=== PATIENT | male | born 1950 | race Caucasian/White ===

== ENCOUNTER 2017-04-11 18:06 | Inpatient (IN) ==
[2017-04-11] MEDS ORDERED: Ipratropium/Albuterol Neb 3 ML IH ONE (18:16)
[2017-04-11] MEDS ORDERED: methylPREDNISolone 125 MG/2 ML VIAL IVP ONE (18:16)
[2017-04-11 18:49] LABS: Basophils # 0.1 K/mcL (0.0-0.2); Eosinophils # 0.8 K/mcL (0.0-0.6); Eosinophils % 10.8 %; Hemoglobin 11.7 g/dL (12.9-16.9); Immature Granulocytes % 0.4 % (0-4); Immature Platelets 1.5 % (1.1-6.1); Lymphocytes # 1.8 K/mcL (0.6-4.6); Lymphocytes % 25.1 %; Mean Corpuscular HGB Conc 32.5 g/dL (31.6-35.5); Mean Corpuscular Hemoglobin 29.5 pg (28.0-33.3); Mean Corpuscular Volume 90.7 fL (83.0-100.0); Mean Platelet Volume 9.4 fL (9.4-12.4); Monocytes # 0.8 K/mcL (0.0-1.3); Monocytes % 10.7 %; Neutrophils # 3.7 K/mcL (1.6-8.9); Platelet Count 303 K/mcL (140-400); Red Blood Count 3.97 M/mcL (4.19-5.50); Red Cell Distribution Width 12.6 % (11.5-14.5)
[2017-04-11 18:57] LABS: BUN/Creatinine Ratio 20 (6-26); Blood Urea Nitrogen 17 mg/dL (8-26); Calcium 9.3 mg/dL (8.6-10.8); Carbon Dioxide 27 mEq/L (19-29); Chloride 104 mEq/L (98-109); Glucose 78 mg/dL (70-99); Osmolality,Calculated 288 (280-300); Potassium 4.2 mEq/L (3.5-4.5); Sodium 139 mEq/L (136-145); eGFR For African Americans > 60 (> 60); eGFR For Non-African Americans > 60 (> 60)
[2017-04-11 19:09] LABS: Platelet Estimate Normal (Normal)
--- NOTE | 2017-04-11 19:33 | Emergency Department Note ---
Disposition Clinical Impression: Shortness of breath, Wheezing, Tremor Disposition: Admitted As Inpatient [facility] Provider[facility] - Forms: ED Satisfaction Letter Time of Disposition: 20:36 SOB HPI - General Chief Complaint: ED Shortness of Breath/Dyspnea Stated Complaint: OSCAR Time Seen by Provider: 04/11/17 18:10 Source: patient Limitations: no limitations Nursing Notes Reviewed: Yes Vital Signs Reviewed: Yes - History of Present Illness 66-year-old male presents emergency room for shortness of breath. Onset 3 days ago. Mr. cough but no sputum production. No documented fevers. Patient has a history of Agent [place] exposure from [place]. He is a long history of breathing problems. He wears oxygen occasionally at home but specifically more at night. He does have home nebulizer treatments. He did not use any today. He denies any chest pain. No lower leg pain or swelling. He states he fell shortness of breath at rest and with movement. He has not history of a anoxic brain injury in the past which is left him with some tremor disorder. - Related Data Home Medications Medication Instructions Recorded Confirmed Albuterol Neb [Proventil Neb] 2.5 mg IH QID 01/17/16 01/28/16 Aspirin 81 mg PO DAILY 01/17/16 01/28/16 Atenolol 100 mg PO DAILY 01/17/16 01/28/16 Bisacodyl [Dulcolax] 10 mg RC DAILY PRN 01/17/16 01/28/16 Chlorhexidine Gluconate [Peridex] 15 ml ORAL RINSE BID 01/17/16 01/28/16 Diclofenac Sodium [Voltaren] 50 mg PO Q8HR 01/17/16 01/28/16 Docusate [Colace] 100 mg PO BID PRN 01/17/16 01/28/16 Furosemide [Lasix] 20 mg PO DAILY 01/17/16 01/28/16 GuaiFENesin/Dextromethorphan [Kro 5 ml PO Q6H PRN 01/17/16 01/28/16 Child Mucus Rlf Cough Liq] Guaifenesin 400 mg PO TID 01/17/16 01/28/16 Haloperidol [Haldol] 5 mg PO Q6H PRN 01/17/16 01/28/16 Ipratropium Neb [Atrovent Neb] 0.5 mg IH QID 01/17/16 01/28/16 Ipratropium/Albuterol Sulfate 1 puff IH QID 01/17/16 01/28/16 [Combivent Respimat Inhal [place]] Ketoconazole Shampoo [Nizoral 1 appl TP AD PRN 01/17/16 01/28/16 Shampoo] Lactose-Reduced Food [Boost Plus] 237 ml PO BID 01/17/16 01/28/16 LevETIRAcetam [Keppra] 500 mg PO Q8H 01/17/16 01/28/16 Nystatin Cream [Mycostatin Cream] 1 appl TP BID 01/17/16 01/28/16 Polyethylene Glycol 3350 [MiraLAX] 17 gm PO DAILY PRN 01/17/16 01/28/16 Potassium Chloride [K-Tab ER] 10 meq PO DAILY 01/17/16 01/28/16 Primidone [Mysoline] 100 mg PO BID 01/17/16 01/28/16 Sertraline [Zoloft] 200 mg PO DAILY 01/17/16 01/28/16 Simvastatin [Zocor] 20 mg PO QPM 01/17/16 01/28/16 TraZODone 25 mg PO Q6H PRN 01/17/16 01/28/16 amLODIPine [Norvasc] 5 mg PO BID 01/17/16 01/28/16 hydrOXYzine HCl [Hydroxyzine HCl] 25 mg PO QID PRN 01/17/16 01/28/16 hydroCHLOROthiazide 12.5 mg PO DAILY 01/17/16 01/28/16 [Hydrochlorothiazide] Previous Rx's Medication Instructions Recorded Baclofen [Lioresal] 10 mg PO TID #90 tablet 01/20/16 Omeprazole [PriLOSEC] 40 mg PO DAILY@0630 #30 capsule 01/20/16 Oxycodone HCl 10 mg PO Q6H PRN #40 tab 01/20/16 Valproic Acid 250 mg PO QID #120 capsule 01/20/16 clonazePAM [Klonopin] 2 mg PO BID #60 tablet 01/20/16 predniSONE [PredniSONE] 10 mg PO DAILY #105 tablet 01/20/16 Allergies Allergy/AdvReac Type Severity Reaction Status Date / Time moxifloxacin Allergy Swelling Verified 01/28/16 17:07 of Lip/Tongue/Throat Review of Systems: Gen.: No fevers or chills or new weakness Eyes: Denies double vision or any vision changes Ears: Denies any otalgia Pharynx: Denies sore throat CV: Denies chest pain. Denies palpitations Respiratory: Positive for shortness of breath and cough . GI: Denies any nausea, vomiting, diarrhea, constipation. Denies abdominal pain Neuro: Denies any headache. No problems with ambulation. No numbness. Skin: Denies any rashes or abrasions Psych: Denies any depression or suicidal or homicidal ideation Musculoskeletal: Denies any arthralgias or myalgias Review of Systems: As Per [facility] Past Medical History - Past Medical History Medical history: Reports: CHF, COPD, coronary artery disease, GERD, hypertension , pulmonary embolus, seizures, other Surgical history: Reports: appendectomy, tracheostomy, other Psychiatric history: Reports: anxiety, bipolar - Social History Smoking Status: Former smoker Smokeless Tobacco Status: No Alcohol use: Reports: none Drug use: Reports: none Physical Exam - General Limitations: no limitations, language barrier (Patient has some speech impediment problem secondary to his tremor disorder.) General appearance: alert, in no apparent distress - Head Head exam: atraumatic, normocephalic, other - Eye Eye exam: Present: normal appearance - ENT ENT exam: normal exam - Neck Neck exam: Present: normal inspection, full ROM - Chest Chest inspection: Present: normal inspection, symmetric chest wall rise - Respiratory Respiratory exam: Present: wheezes (Patient has bilateral wheezing heard throughout. Good air exchange. No rhonchi are heard.) - Cardiovascular Cardiovascular exam: Present: regular rate, normal rhythm, normal heart sounds - Abdominal Exam Abdominal exam: Present: soft, Non-Tender, normal bowel sounds - Extremities Exam Extremities exam: Present: normal inspection - Expanded Lower Extremity Exam Hip/Pelvis exam: Present: normal inspection - Back Exam Back exam: Present: normal inspection - Neurological Exam Neurological exam: Present: alert, oriented X3 - Psychiatric Psychiatric exam: Present: normal affect, normal mood - Skin Skin exam: Present: warm, dry, intact Course Vital Signs Temperature 98.7 F 04/11/17 18:07 Pulse Rate 74 04/11/17 18:07 Respiratory Rate 20 04/11/17 18:07 Blood Pressure 153/68 04/11/17 18:07 O2 Sat by Pulse Oximetry 98 04/11/17 18:07 Temperature 98.7 F 04/11/17 18:07 Pulse Rate 66 04/11/17 20:31 Respiratory Rate 18 04/11/17 20:31 Blood Pressure 185/92 04/11/17 20:31 O2 Sat by Pulse Oximetry 96 04/11/17 20:31 Oxygen Delivery Oxygen Delivery Nasal Cannula Shortness of Breath/Dyspnea - [facility] Narrative Medical decision making narrative: Patient received DuoNeb treatments as well as steroids in the ER. His chest x- ray was concerning for infrahilar right spiculated mass versus infiltrate. Patient has Agent [place] exposure from the [place]. He does wear home oxygen as previously mentioned. He does not wear this all the time. His labs are essentially unremarkable. His chest x-ray again noted above and therefore I did a CT of the chest. Awaiting the official report from radiology but there is evidence of a spiculated mass present in the right lung versus infiltrate. I spoke with the hospitalist. Patient will need to be admitted. He is having no chest pain. No lower extremity pain or swelling that is new. Patient is okay with being admitted. - Medical Records Medical records reviewed: Yes I reviewed the patient's medical records. - Lab Data Lab results reviewed: Yes I reviewed the patient's lab results. Result diagrams: 04/11/17 18:34 04/11/17 18:34 Lab Results 04/11/17 04/11/17 04/11/17 Range/Units 18:34 18:34 18:34 WBC 7.2 (4.3-11.1) K/mcL RBC 3.97 L (4.19-5.50) M/mcL Hgb 11.7 L (12.9-16.9) g/dL Hct 36.0 L (37.5-50.1) % MCV 90.7 (83.0-100.0) fL MCH 29.5 (28.0-33.3) pg MCHC 32.5 (31.6-35.5) g/dL RDW 12.6 (11.5-14.5) % Plt Count 303 (140-400) K/mcL MPV 9.4 (9.4-12.4) fL Immature Gran % 0.4 (0-4) % Seg Neutrophils % 52.0 % Lymphocytes % 25.1 % Monocytes % 10.7 % Eosinophils % 10.8 % Basophils % 1.0 % Neutrophils # 3.7 (1.6-8.9) K/mcL Lymphocytes # 1.8 (0.6-4.6) K/mcL Monocytes # 0.8 (0.0-1.3) K/mcL Eosinophils # 0.8 H (0.0-0.6) K/mcL Basophils # 0.1 (0.0-0.2) K/mcL Platelet Estimate Normal (Normal) Immature Plt Fraction 1.5 (1.1-6.1) % Sodium 139 (136-145) mEq/L Potassium 4.2 (3.5-4.5) mEq/L Chloride 104 (98-109) mEq/L Carbon Dioxide 27 (19-29) mEq/L BUN 17 (8-26) mg/dL Creatinine 0.86 (0.72-1.25) mg/dL Est GFR ( Amer) > 60 (> 60) Est GFR (Non-Af Amer) > 60 (> 60) BUN/Creatinine Ratio 20 (6-26) Glucose 78 (70-99) mg/dL Calculated Osmolality 288 (280-300) Calcium 9.3 (8.6-10.8) mg/dL Troponin I 0.01 (0-0.03) ng/mL B-Natriuretic Peptide (0-100) pg/mL 04/11/17 Range/Units 18:34 WBC (4.3-11.1) K/mcL RBC (4.19-5.50) M/mcL Hgb (12.9-16.9) g/dL Hct (37.5-50.1) % MCV (83.0-100.0) fL MCH (28.0-33.3) pg MCHC (31.6-35.5) g/dL RDW (11.5-14.5) % Plt Count (140-400) K/mcL MPV (9.4-12.4) fL Immature Gran % (0-4) % Seg Neutrophils % % Lymphocytes % % Monocytes % % Eosinophils % % Basophils % % Neutrophils # (1.6-8.9) K/mcL Lymphocytes # (0.6-4.6) K/mcL Monocytes # (0.0-1.3) K/mcL Eosinophils # (0.0-0.6) K/mcL Basophils # (0.0-0.2) K/mcL Platelet Estimate (Normal) Immature Plt Fraction (1.1-6.1) % Sodium (136-145) mEq/L Potassium (3.5-4.5) mEq/L Chloride (98-109) mEq/L Carbon Dioxide (19-29) mEq/L BUN (8-26) mg/dL Creatinine (0.72-1.25) mg/dL Est GFR ( Amer) (> 60) Est GFR (Non-Af Amer) (> 60) BUN/Creatinine Ratio (6-26) Glucose (70-99) mg/dL Calculated Osmolality (280-300) Calcium (8.6-10.8) mg/dL Troponin I (0-0.03) ng/mL B-Natriuretic Peptide 49 (0-100) pg/mL - Radiology Data Radiology results reviewed: Yes I reviewed the patient's radiology results. - EKG Data EKG attestation: Yes I reviewed and interpreted this EKG. EKG results narrative: EKG shows a rate of 71. Normal sinus rhythm. Normal axis. All intervals are normal. Normal EKG.
--- NOTE | 2017-04-11 23:40 | Internal Med History&Physical ---
Date of Encounter: 04/12/17 Time of Encounter: 23:30 Assessment and Plan (1) Right lower lobe lung mass Current visit: Yes Status: Acute Newly diagnosed right lower lung mass, possible carcinoma Pulmonology consult (2) Acute exacerbation of chronic obstructive airways disease Current visit: No Status: Acute Acute exacerbation of COPD with probable Pneumonia present on admission Continue DuoNeb breathing treatment, empiric IV Rocephin, IV azithromycin CT chest reviewed Cardiac telemetry, pulse ox, monitor closely (3) Anoxic brain injury Current visit: No Status: Chronic History of anoxic brain injury with chronic dysarthria and chronic coarse tremors (4) Seizures Current visit: No Status: Chronic Stable, Continue home medications (5) Bipolar mixed affective disorder, moderate Current visit: No Status: Chronic Stable, continue home medications (6) Chronic pain syndrome Current visit: No Status: Chronic History of chronic pain syndrome, has been on methadone in the past (7) DVT prophylaxis Current visit: Yes Status: Acute Continue heparin subcutaneous Internal Medicine - H&P: HPI Chief complaint: Shortness of breath Admitted From: Emergency Dept Plans for Post Hospital Care: Home History of present illness: Mr. Daniel is a 66 year old male CHF, COPD, coronary artery disease, GERD, hypertension, history of anoxic brain injury, seizure disorder, chronic tremors , history of PE, chronic pain and bipolar disorder. Patient presents to ED with complaints of shortness of breath. Examination patient is awake and alert. Not in any distress. No family members at bedside. He is able to provide history. Patient does have dysarthria/speech impediment and course tremors due to his h/o anoxic brain injury. Patient does have some difficulty verbalizing. It is difficult to obtain history, but he answers 'yes' or 'no' easily. But he follows verbal commands. No other obvious focal neurological deficits otherwise. Patient states his shortness of breath started a few days ago. Symptoms are gradually worsening. Worse with exertion. He is mostly bedbound and wheelchair -bound. He also uses oxygen at home. Patient denies chest pain, denies palpitations. Denies headache or fever or vomiting. No diarrhea. No other associated symptoms. No other acute complaints at this time. Initial workup in the ED is significant for right lower lung opacity, likely carcinoma. Patient also has probable pneumonia. He will be continued on IV antibiotics and DuoNeb breathing treatment. Pulmonology consult pending. CODE STATUS full code. Past Med Surg Social Fam HX - Past Medical History Medical history: CHF, COPD, coronary artery disease, GERD, hypertension, pulmonary embolus, seizures, other Psychiatric history: anxiety, bipolar - Past Surgical History Surgical History: appendectomy, tracheostomy, other - Social History Smoking Status: Former smoker Smokeless Tobacco Status: No Alcohol use: none Drug use: none - Family History Father Hx Family Cardiac Disorders: Yes Internal Medicine - H&P: Meds Albuterol Neb [Proventil Neb] 2.5 mg IH QID 01/17/16 [History] Aspirin 81 mg PO DAILY 01/17/16 [History] Atenolol 100 mg PO DAILY 01/17/16 [History] Bisacodyl [Dulcolax] 10 mg RC DAILY PRN 01/17/16 [History] Chlorhexidine Gluconate [Peridex] 15 ml ORAL RINSE BID 01/17/16 [History] Diclofenac Sodium [Voltaren] 50 mg PO Q8HR 01/17/16 [History] Docusate [Colace] 100 mg PO BID PRN 01/17/16 [History] Furosemide [Lasix] 20 mg PO DAILY 01/17/16 [History] GuaiFENesin/Dextromethorphan [Kro Child Mucus Rlf Cough Liq] 5 ml PO Q6H PRN [History] Guaifenesin 400 mg PO TID 01/17/16 [History] Haloperidol [Haldol] 5 mg PO Q6H PRN 01/17/16 [History] Ipratropium Neb [Atrovent Neb] 0.5 mg IH QID 01/17/16 [History] Ipratropium/Albuterol Sulfate [Combivent Respimat Inhal [place]] 1 puff IH QID [History] Ketoconazole Shampoo [Nizoral Shampoo] 1 appl TP AD PRN 01/17/16 [History] Lactose-Reduced Food [Boost Plus] 237 ml PO BID 01/17/16 [History] LevETIRAcetam [Keppra] 500 mg PO Q8H 01/17/16 [History] Nystatin Cream [Mycostatin Cream] 1 appl TP BID 01/17/16 [History] Polyethylene Glycol 3350 [MiraLAX] 17 gm PO DAILY PRN 01/17/16 [History] Potassium Chloride [K-Tab ER] 10 meq PO DAILY 01/17/16 [History] Primidone [Mysoline] 100 mg PO BID 01/17/16 [History] Sertraline [Zoloft] 200 mg PO DAILY 01/17/16 [History] Simvastatin [Zocor] 20 mg PO QPM 01/17/16 [History] TraZODone 25 mg PO Q6H PRN 01/17/16 [History] amLODIPine [Norvasc] 5 mg PO BID 01/17/16 [History] hydrOXYzine HCl [Hydroxyzine HCl] 25 mg PO QID PRN 01/17/16 [History] hydroCHLOROthiazide [Hydrochlorothiazide] 12.5 mg PO DAILY 01/17/16 [History] Baclofen [Lioresal] 10 mg PO TID #90 tablet 01/20/16 [Rx] Omeprazole [PriLOSEC] 40 mg PO DAILY@0630 #30 capsule 01/20/16 [Rx] Oxycodone HCl 10 mg PO Q6H PRN #40 tab 01/20/16 [Rx] Valproic Acid 250 mg PO QID #120 capsule 01/20/16 [Rx] clonazePAM [Klonopin] 2 mg PO BID #60 tablet 01/20/16 [Rx] predniSONE [PredniSONE] 10 mg PO DAILY #105 tablet 01/20/16 [Rx] 3 Allergy/AdvReac Type Severity Reaction Status Date / Time moxifloxacin Allergy Swelling Verified 01/28/16 17:07 of Lip/Tongue/Throat All Systems PM: A 10-system review of systems was performed and is negative for pertinent findings except as documented above in the HPI. - Constitutional Constitutional: fatigue, no fever(s), no weakness - EENT Eyes: no blurry vision - Cardiovascular Cardiovascular ROS IM: dyspnea, dyspnea on exertion, no chest pain, no claudication, no edema, no lightheadedness, no orthopnea, no syncope - Respiratory Respiratory: cough, dyspnea, dyspnea on exertion, wheezing, chest congestion, no hemoptysis - Gastrointestinal Gastrointestinal: no abdominal pain, no belching, no bloating, no cramping, no diarrhea, no hematemesis, no hematochezia, no nausea, no vomiting - Genitourinary Genitourinary ROS male: no dysuria - Neurological Neurological ROS: no abnormal gait, no confusion, no dizziness, no loss of vision, no numbness, no tingling - Constitutional Vitals: Temp Pulse Resp BP Pulse Ox 98.2 F 66 12 181/81 97 04/11/17 23:25 04/11/17 23:25 04/11/17 23:25 04/11/17 23:25 04/11/17 23:25 General appearance: Present: A&O X 3, pleasant, no acute distress, answers questions appropriately Exam: Ill-appearing, patient has dysarthria and speech impediment due to anoxic brain injury, patient has coarse tremors - Head Head exam: Present: atraumatic - Eye Eye exam: Present: EOMI - ENT ENT exam: Present: mucous membranes moist - Respiratory Respiratory exam: Present: wheezes (Bilateral). Absent: accessory muscle use, rales, rhonchi, tachypnea - Cardiovascular Cardiovascular exam: Present: RRR, +S1, +S2 - GI/Abdominal GI/Abdominal exam: Present: rigid. Absent: distended, firm, guarding, tenderness - Extremities Exam Extremities exam: Present: radial pulses palpable and symmetrical. Absent: calf tenderness, cyanotic, pedal edema - Neurological Exam Neurological exam: Present: alert, oriented X3, no focal deficits Additional comments: History of anoxic brain injury, dysarthria and speech impediment, no other obvious focal neurological deficits. Patient does have coarse tremors Internal Med - H&P Results - Labs CBC & Chem 7: 04/12/17 02:52 04/12/17 02:52
[2017-04-12] MEDS: clonazePAM 1 MG TABLET PO SCH ×3 (00:18→20:26)
[2017-04-12] MEDS: traZODone 50 MG TABLET PO PRN ×2 (00:19→23:21)
[2017-04-12] MEDS ORDERED: Bisacodyl 10 MG RECTAL SUPPOSITORY RC PRN (01:24)
[2017-04-12] MEDS ORDERED: Ondansetron 4 MG/2 ML VIAL IVP PRN (01:28)
[2017-04-12] MEDS ORDERED: Naloxone 0.4 MG/ML INJ IVP PRN (01:28)
[2017-04-12] MEDS: levETIRAcetam 250 MG TABLET PO SCH ×3 (02:58→17:00)
[2017-04-12 03:23] LABS: Basophils % 0.7 %; Eosinophils % 0.2 %; Hematocrit 36.1 % (37.5-50.1); Hemoglobin 11.7 g/dL (12.9-16.9); Immature Granulocytes % 0.5 % (0-4); Immature Platelets 1.4 % (1.1-6.1); Lymphocytes # 0.9 K/mcL (0.6-4.6); Lymphocytes % 14.8 %; Mean Corpuscular HGB Conc 32.4 g/dL (31.6-35.5); Mean Corpuscular Hemoglobin 29.2 pg (28.0-33.3); Monocytes # 0.1 K/mcL (0.0-1.3); Monocytes % 2.1 %; Platelet Count 327 K/mcL (140-400); Red Blood Count 4.01 M/mcL (4.19-5.50); Red Cell Distribution Width 12.4 % (11.5-14.5); Segmented Neutrophils % 81.7 %
[2017-04-12] MEDS ORDERED: Ipratropium/Albuterol Neb 3 ML ONE (03:26)
[2017-04-12 03:30] LABS: INR 1.1; Prothrombin Time 12.1 Seconds (9.4-12.1)
[2017-04-12 03:37] LABS: BUN/Creatinine Ratio 28 (6-26); Blood Urea Nitrogen 22 mg/dL (8-26); Calcium 9.2 mg/dL (8.6-10.8); Carbon Dioxide 25 mEq/L (19-29); Chloride 103 mEq/L (98-109); Glucose 185 mg/dL (70-99); Osmolality,Calculated 292 (280-300); Potassium 4.2 mEq/L (3.5-4.5); Sodium 137 mEq/L (136-145); eGFR For African Americans > 60 (> 60); eGFR For Non-African Americans > 60 (> 60)
[2017-04-12] MEDS: Ipratropium/Albuterol Neb 3 ML IH SCH ×6 (03:41→23:56)
[2017-04-12] MEDS: Famotidine 20 MG/2 ML VIAL IVP SCH ×2 (05:16→17:00)
[2017-04-12] MEDS: Azithromycin 500 MG in D5% in Water 250 ML IVPB SCH (05:16)
--- NOTE | 2017-04-12 07:13 | Pulmonology Consult Note ---
Date of Encounter: 04/12/17 Time of Encounter: 07:13 Assessment and Plan (1) Acute exacerbation of chronic obstructive airways disease Current Visit: No Status: Acute Impression: 1. AECOPD. 2. Possible PNA 3. RLL LUNG Opacity DDx includes pneumonia primary lung carcinoma less likely but also possible atelectasis. 4. HTN 5. DVT Prophylaxis. 6. Tobacco Abuse in Remission Recs: 1. Transition from IV to enteral steroids to complete two-week taper 40 mg by mouth prednisone should be sufficient. Agree with bronchodilators please start Symbicort 160/4.5 to be used daily. Wean FiO2 to keep saturation greater than 89-92% 2. Agree with ABx deescalate in 48 hours based upon micro data to complete 7 day course for possible PNA. Please send urinary legionella and strep pneumo antigen if not already done so. We will also need sputum culture if possible. 3. I have spoken with his daughter and she is going to try to obtain the outside hospital records and bring them to the hospital including the CD disks of the imaging. I think this is clearly the first place to start I suspect most this will be an outpatient work up either here at [place] or in [place] depending on their preference. [facility] [place] [facility] would also be an option for the patient is his if he is able to travel one possibility would be PET CT followed by navigational bronchoscopy if no clear evidence of lymphadenopathy on PET scan. 4. Blood pressure remains uncontrolled for to the primary medicine service to further address this issue but clearly with underlying heart disease this can complicate COPD tremendously 5. Agree with chemical DVT prophylaxis and loss contraindication arises 6. Patient should undergo annual low dose CT for cancer screening until he reaches the 15 year post-remission of tobacco abuse or age 75 what ever comes first - (2) Hypoxia Current Visit: No Status: Acute (3) HTN (hypertension) Current Visit: No Status: Chronic Qualifiers: Hypertension type: essential hypertension Qualified Code(s): I10 - Essential (primary) hypertension (4) DVT prophylaxis Current Visit: Yes Status: Acute (5) Right lower lobe lung mass Current Visit: Yes Status: Acute History of Present Illness Consult date: 04/12/17 Requesting physician: Jia Cervantes Reason for consult: COPD Chief complaint: Shortness of Breath History of present illness: This is a 66-year-old woman with a past medical history of anoxic brain injury COPD with use of the supplemental oxygen for nocturnal hypoxemia additionally per history has CHF and coronary artery disease. He presented with shortness of breath has been diagnosed with COPD exacerbation and possible pneumonia and part of the workup chest x-ray in the ED was remarkable for right lower lobe opacity which was first eliminated as a right lower lobe mass on CT scan of the chest. 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 The patient is a willing but at times incomplete historian he does say that he had a lung biopsy 8 or 9 months ago in [place] at [facility] he said that the results were not consistent with cancer but was unable to provide more history than that he does take an albuterol inhaler at home his primary healthcare customer service representative and healthcare power city attorney is his daughter Aliyah Sibley I spoke with on the phone and she remembers the biopsy as well although she is unaware of much more than the results were benign. Since admission he does state that he has been feeling much better Past Med Surg Social Fam HX - Past Medical History Medical history: CHF, COPD, coronary artery disease, GERD, hypertension, pulmonary embolus, seizures, other Psychiatric history: anxiety, bipolar - Past Surgical History Surgical History: appendectomy, tracheostomy, other - Social History Smoking Status: Former smoker Smokeless Tobacco Status: No Alcohol use: none Drug use: none - Family History Father Hx Family Cardiac Disorders: Yes Medications and Allergies Albuterol Neb [Proventil Neb] 2.5 mg IH QID 01/17/16 [History] Aspirin 81 mg PO DAILY 01/17/16 [History] Atenolol 100 mg PO DAILY 01/17/16 [History] Bisacodyl [Dulcolax] 10 mg RC DAILY PRN 01/17/16 [History] Chlorhexidine Gluconate [Peridex] 15 ml ORAL RINSE BID 01/17/16 [History] Diclofenac Sodium [Voltaren] 50 mg PO Q8HR 01/17/16 [History] Docusate [Colace] 100 mg PO BID PRN 01/17/16 [History] Furosemide [Lasix] 20 mg PO DAILY 01/17/16 [History] GuaiFENesin/Dextromethorphan [Kro Child Mucus Rlf Cough Liq] 5 ml PO Q6H PRN [History] Guaifenesin 400 mg PO TID 01/17/16 [History] Haloperidol [Haldol] 5 mg PO Q6H PRN 01/17/16 [History] Ipratropium Neb [Atrovent Neb] 0.5 mg IH QID 01/17/16 [History] Ipratropium/Albuterol Sulfate [Combivent Respimat Inhal Candor] 1 puff IH QID [History] Ketoconazole Shampoo [Nizoral Shampoo] 1 appl TP AD PRN 01/17/16 [History] Lactose-Reduced Food [Boost Plus] 237 ml PO BID 01/17/16 [History] LevETIRAcetam [Keppra] 500 mg PO Q8H 01/17/16 [History] Nystatin Cream [Mycostatin Cream] 1 appl TP BID 01/17/16 [History] Polyethylene Glycol 3350 [MiraLAX] 17 gm PO DAILY PRN 01/17/16 [History] Potassium Chloride [K-Tab ER] 10 meq PO DAILY 01/17/16 [History] Primidone [Mysoline] 100 mg PO BID 01/17/16 [History] Sertraline [Zoloft] 200 mg PO DAILY 01/17/16 [History] Simvastatin [Zocor] 20 mg PO QPM 01/17/16 [History] TraZODone 25 mg PO Q6H PRN 01/17/16 [History] amLODIPine [Norvasc] 5 mg PO BID 01/17/16 [History] hydrOXYzine HCl [Hydroxyzine HCl] 25 mg PO QID PRN 01/17/16 [History] hydroCHLOROthiazide [Hydrochlorothiazide] 12.5 mg PO DAILY 01/17/16 [History] Baclofen [Lioresal] 10 mg PO TID #90 tablet 01/20/16 [Rx] Omeprazole [PriLOSEC] 40 mg PO DAILY@0630 #30 capsule 01/20/16 [Rx] Oxycodone HCl 10 mg PO Q6H PRN #40 tab 01/20/16 [Rx] Valproic Acid 250 mg PO QID #120 capsule 01/20/16 [Rx] clonazePAM [Klonopin] 2 mg PO BID #60 tablet 01/20/16 [Rx] predniSONE [PredniSONE] 10 mg PO DAILY #105 tablet 01/20/16 [Rx] 3 Allergy/AdvReac Type Severity Reaction Status Date / Time moxifloxacin Allergy Swelling Verified 01/28/16 17:07 of Lip/Tongue/Throat All Systems: A 10-system review of systems was performed and is negative for pertinent findings except as documented above in the HPI. Physical Examination Vital Signs: Vital Signs, Last 4 Hours Resp Pulse Ox 04/12/17 03:41 16 98 General appearance: no acute distress ENT: oropharynx moist Effort: normal Auscultation: bilateral: diminished breath sounds, wheezes Cardiovascular: regular rate and rhythm Gastrointestinal: normoactive bowel sounds Integumentary: normal Extremities: no cyanosis, edema (Trace lower extremity edema) normal mental status, non-focal exam, other (He does have a chronic bilateral tremor with involuntary movements in the upper extremities which are made worse by intention) mood appropriate Results - Laboratory Findings CBC and BMP: 04/12/17 02:52 04/12/17 02:52 PT/INR, D-dimer PT 12.1 Seconds (9.4-12.1) 04/12/17 02:52 Abnormal lab findings: Abnormal lab results RBC 4.01 M/mcL (4.19-5.50) L 04/12/17 02:52 Hgb 11.7 g/dL (12.9-16.9) L 04/12/17 02:52 Hct 36.1 % (37.5-50.1) L 04/12/17 02:52 MPV 9.0 fL (9.4-12.4) L 04/12/17 02:52 BUN/Creatinine Ratio 28 (6-26) H 04/12/17 02:52 Glucose 185 mg/dL (70-99) H 04/12/17 02:52 - Diagnostic Findings Chest x-ray: report reviewed, image reviewed CT scan - chest: report reviewed, image reviewed Consult Discharge Plan - Plan [facility]errals: [facility] [Primary Care Provider] -
--- NOTE | 2017-04-12 10:40 | Internal Med Progress Note ---
Date of Encounter: 04/12/17 Time of Encounter: 10:37 - Assessment and plan (1) Pneumonia Current Visit: Yes Status: Acute Qualifiers: Pneumonia type: due to unspecified organism Laterality: unspecified laterality Lung location: unspecified part of lung Qualified Code(s): J18.9 - Pneumonia, unspecified organism (2) Acute exacerbation of chronic obstructive airways disease Current Visit: Yes Status: Acute (3) HTN (hypertension) Current Visit: Yes Status: Chronic Qualifiers: Hypertension type: essential hypertension Qualified Code(s): I10 - Essential (primary) hypertension (4) Anoxic brain injury Current Visit: Yes Status: Chronic (5) Seizures Current Visit: Yes Status: Chronic (6) Right lower lobe lung mass Current Visit: Yes Status: Acute - Subjective Interval history: Mr. Daneil is a 66 year old male CHF, COPD, coronary artery disease, GERD, hypertension, history of anoxic brain injury, seizure disorder, chronic tremors , history of PE, chronic pain and bipolar disorder. Patient presents to ED with complaints of shortness of breath. He was diagnosed with pneumonia and acute exacerbation of COPD. There is concern for right-sided mass/ consolidation and pulmonology has been involved. Patient is under evaluation for possible cancer and we are waiting for outside records. Continue antibiotic IV steroids and nebulizers. - Constitutional Vitals: Temp Pulse Resp BP Pulse Ox 97.5 F L 62 16 162/83 96 04/12/17 08:09 04/12/17 08:09 04/12/17 08:09 04/12/17 08:09 04/12/17 08:09 General appearance: Present: pleasant, no acute distress, answers questions appropriately - Head Head exam: Present: atraumatic, normocephalic - Eye Eye exam: Present: PERRL, conjuntiva pink, sclera anicteric Pupils: Present: PERRL - Neck Neck exam general surgery: Present: supple, trachea midline. Absent: lymphadenopathy - Respiratory Respiratory exam: Present: CTAB, wheezes. Absent: accessory muscle use, rales, rhonchi - Cardiovascular Cardiovascular exam: Present: RRR, +S1, +S2. Absent: diastolic murmur, gallop, rubs, systolic murmur - GI/Abdominal GI/Abdominal exam: Present: normal bowel sounds, soft, no peritoneal signs. Absent: distended, tenderness - Extremities Exam Extremities exam: Present: warm, radial pulses palpable and symmetrical. Absent : calf tenderness, cyanotic, pedal edema - Neurological Exam Neurological exam: Present: CN II-XII intact, no focal deficits. Absent: pronater drift, facial droop, speech deficit Additional comments: Examination patient is awake and alert. Patient does have dysarthria/speech impediment and course tremors due to his h/o anoxic brain injury. Patient does have some difficulty verbalizing. It is difficult to obtain history, but he answers 'yes' or 'no' easily. But he follows verbal commands. No other obvious focal neurological deficits otherwise. - Skin Skin exam: Present: dry, intact Internal Medicine: Result - Labs CBC & Chem 7: 04/12/17 02:52 04/12/17 02:52 Labs: Short CBC 04/12/17 Range/Units 02:52 WBC 6.1 (4.3-11.1) K/mcL Hgb 11.7 L (12.9-16.9) g/dL Hct 36.1 L (37.5-50.1) % Plt Count 327 (140-400) K/mcL Neutrophils # 5.0 (1.6-8.9) K/mcL BMP 04/12/17 02:52 Sodium 137 Potassium 4.2 Chloride 103 Carbon Dioxide 25 BUN 22 Creatinine 0.80 Glucose 185 H Calcium 9.2 - ABG Interpretation ABG results: PT/INR, D-dimer PT 12.1 Seconds (9.4-12.1) 04/12/17 02:52 Consult Discharge Plan - Plan [facility]errals: [facility] [Primary Care Provider] -
[2017-04-12] MEDS: *HR* Heparin 5,000 UNIT/ML VIAL SQ SCH ×2 (11:07→16:53)
[2017-04-12] MEDS: MethylPREDNISolone 40 MG/ML VIAL IVP SCH ×3 (11:07→23:21)
[2017-04-12] MEDS: Aspirin 81 MG TAB.CHEW PO SCH (11:07)
[2017-04-12] MEDS: hydroCHLOROthiazide 25 MG TABLET PO SCH (11:08)
[2017-04-12] MEDS: Furosemide 20 MG TABLET PO SCH (11:08)
[2017-04-12] MEDS: Valproic Acid 250 MG CAPSULE PO SCH ×4 (11:08→20:26)
[2017-04-12] MEDS: amLODIPine 5 MG TABLET PO SCH ×2 (11:09→20:26)
[2017-04-12] MEDS: Nystatin Cream 15 GM TUBE TP SCH ×2 (11:09→22:32)
[2017-04-12] MEDS: GuaiFENesin Liq 200 MG/10 ML UDC PO SCH ×3 (11:09→20:26)
[2017-04-12] MEDS: Primidone 50 MG TABLET PO SCH ×2 (11:09→20:26)
[2017-04-13] MEDS: levETIRAcetam 250 MG TABLET PO SCH ×3 (02:27→17:36)
[2017-04-13] MEDS: Azithromycin 500 MG in D5% in Water 250 ML IVPB SCH (03:53)
[2017-04-13] MEDS: Ipratropium/Albuterol Neb 3 ML IH SCH ×6 (04:03→23:19)
[2017-04-13] MEDS: *HR* Heparin 5,000 UNIT/ML VIAL SQ SCH ×2 (05:30→17:36)
[2017-04-13] MEDS: Famotidine 20 MG/2 ML VIAL IVP SCH ×2 (05:31→17:36)
[2017-04-13] MEDS: Valproic Acid 250 MG CAPSULE PO SCH ×4 (08:12→20:11)
[2017-04-13] MEDS: MethylPREDNISolone 40 MG/ML VIAL IVP SCH (08:12)
[2017-04-13] MEDS: Aspirin 81 MG TAB.CHEW PO SCH (08:12)
[2017-04-13] MEDS: hydroCHLOROthiazide 25 MG TABLET PO SCH (08:12)
[2017-04-13] MEDS: clonazePAM 1 MG TABLET PO SCH ×2 (08:13→20:11)
[2017-04-13] MEDS: Primidone 50 MG TABLET PO SCH ×2 (08:13→20:11)
[2017-04-13] MEDS: Furosemide 20 MG TABLET PO SCH (08:13)
[2017-04-13] MEDS: Nystatin Cream 15 GM TUBE TP SCH ×2 (08:13→20:12)
[2017-04-13] MEDS: amLODIPine 5 MG TABLET PO SCH ×2 (08:15→20:11)
[2017-04-13] MEDS: GuaiFENesin Liq 200 MG/10 ML UDC PO SCH ×3 (08:15→20:11)
--- NOTE | 2017-04-13 09:31 | Pulmonology Progress Note ---
Date of Encounter: 04/13/17 Time of Encounter: 09:31 Assessment and Plan (1) Right lower lobe lung mass Current Visit: Yes Status: Acute In Conclusion this is 66-year-old gentleman past medical history of COPD and tracheal bronchomalacia right lower lobe lung mass who presented with COPD exacerbation and possible pneumonia has receiving appropriate antimicrobial steroids and bronchodilators and is shown improvement denies been weaned off supplemental oxygen during the day and will continue to use this at night.. I reviewed his outside hospital records and determine that the right lower lobe lung mass has indeed been followed with surveillance CT scan since 2013 but has grown slightly since that time last year in 2016 years approximately 2.5 cm now has increased to around 3 cm. The overall radiographic appearance could be consistent with rounded atelectasis although with increase in size in his long smoking history and underlying COPD slow-growing primary lung malignancy has to be in the differential diagnosis. From this standpoint I recommend close pulmonary follow-up at time of discharge for PET CT scan and then the discussed course of action with this be bronchoscopy with endobronchial ultrasound versus CT guided biopsy of the lesion . Present point of COPD exacerbation I recommend continuation of enteral steroids to complete a two-week taper bronchodilators as needed and he can be discharged with the metered-dose inhaler (symbicort 160/4.5). He will need follow-up in the pulmonary clinic for this and also would need outpatient polysomnogram and sleep evaluation as I have a high suspicion for underlying sleep-disordered breathing given history of anoxic brain injury and morbid obesity. Additionally with Past diagnosis of tracheobronchomalacia diagnosed with bronchoscopy positive airway pressure as part of the treatment for this condition and could prevent recurrent hospitalizations. I think that there is an equivocal diagnosis of pneumonia here think is reasonable to continue antimicrobials for the next 5-7 days and stop he can be due to the escalated oral agent today While inpatient I recommend continuation of chemical DVT prophylaxis unless contraindication arises Please call with any questions but at this point pulmonary will sign off with plan for close follow-up after discharge. Thank you for allowing us to participate in the care of this patient (2) Acute exacerbation of chronic obstructive airways disease Current Visit: Yes Status: Acute (3) Hypoxia Current Visit: No Status: Acute (4) HTN (hypertension) Current Visit: Yes Status: Chronic Qualifiers: Hypertension type: essential hypertension Qualified Code(s): I10 - Essential (primary) hypertension (5) DVT prophylaxis Current Visit: Yes Status: Acute Subjective Principal diagnosis: COPD exacerbation Interval history: No acute events overnight patient resting comfortably been weaned off oxygen during the day Objective PUL Vital signs: Last Vital Signs Temp 97.6 F 04/13/17 07:26 Pulse 79 04/13/17 07:26 Resp 19 04/13/17 07:26 BP 158/68 04/13/17 07:26 Pulse Ox 95 04/13/17 07:26 General appearance: no acute distress Auscultation: bilateral: diminished breath sounds, wheezes (Diffuse expiratory wheezes although improved from prior examination) Cardiovascular: regular rate and rhythm Gastrointestinal: normoactive bowel sounds, soft, non-tender Extremities: no edema, no clubbing Results - Laboratory Findings CBC and BMP: 04/13/17 09:30 04/13/17 09:30 PT/INR, D-dimer PT 12.1 Seconds (9.4-12.1) 04/12/17 02:52 Abnormal lab findings: Abnormal lab results RBC 4.01 M/mcL (4.19-5.50) L 04/12/17 02:52 Hgb 11.7 g/dL (12.9-16.9) L 04/12/17 02:52 Hct 36.1 % (37.5-50.1) L 04/12/17 02:52 MPV 9.0 fL (9.4-12.4) L 04/12/17 02:52 BUN/Creatinine Ratio 28 (6-26) H 04/12/17 02:52 Glucose 185 mg/dL (70-99) H 04/12/17 02:52 - Clinical Findings Intake & Output: Intake & Output 04/12/17 04/13/17 04/13/17 23:59 07:59 15:59 Intake Total 250 / 250 480 / 480 Output Total 475 / 475 250 / 250 200 / 200 Balance -475 / -475 0 / 0 280 / 280 Consult Discharge Plan - Plan [facility]errals: [facility] [Primary Care Provider] -
[2017-04-13 09:43] LABS: Basophils % 0.3 %; Eosinophils % 0.1 %; Hematocrit 38.5 % (37.5-50.1); Hemoglobin 12.6 g/dL (12.9-16.9); Immature Granulocytes % 0.9 % (0-4); Lymphocytes # 1.8 K/mcL (0.6-4.6); Lymphocytes % 14.7 %; Mean Corpuscular HGB Conc 32.7 g/dL (31.6-35.5); Mean Corpuscular Hemoglobin 29.2 pg (28.0-33.3); Mean Corpuscular Volume 89.1 fL (83.0-100.0); Monocytes # 0.9 K/mcL (0.0-1.3); Monocytes % 7.1 %; Neutrophils # 9.3 K/mcL (1.6-8.9); Platelet Count 368 K/mcL (140-400); Red Blood Count 4.32 M/mcL (4.19-5.50); Red Cell Distribution Width 12.6 % (11.5-14.5); Segmented Neutrophils % 76.9 %
[2017-04-13 09:56] LABS: BUN/Creatinine Ratio 23 (6-26); Blood Urea Nitrogen 21 mg/dL (8-26); Calcium 9.4 mg/dL (8.6-10.8); Carbon Dioxide 26 mEq/L (19-29); Chloride 100 mEq/L (98-109); Glucose 131 mg/dL (70-99); Magnesium 1.7 mg/dL (1.6-2.6); Osmolality,Calculated 293 (280-300); Potassium 3.7 mEq/L (3.5-4.5); Sodium 139 mEq/L (136-145); eGFR For African Americans > 60 (> 60); eGFR For Non-African Americans > 60 (> 60)
--- NOTE | 2017-04-13 13:10 | Internal Med Progress Note ---
<KeyanaDevan rubi - Last Filed: 04/13/17 16:03> Date of Encounter: 04/13/17 Time of Encounter: 10:15 - Assessment and plan (1) Right lower lobe lung mass Current Visit: Yes Status: Acute Assessment and plan: Lung mass in right ower lobe has been followed with surveillance CT since 2014 and has grown by 3cm. Given his somking hisotry and underlying COPD, a primary lung malignancy is more likely than PNA or round atelectasis. - Antibioitics stopped due to low suspicion of PNA. - Spoke to Dr. Perry from IR and he will be scheduled for biopsy tomorrow. - NPO tonight. (2) Acute exacerbation of chronic obstructive airways disease Current Visit: Yes Status: Acute Assessment and plan: - Patient transitioned to PO Prednisone. - Antibiotics stopped. Low suspicion for PNA. - Continue Duoneb breathing treatment. (3) Anoxic brain injury Current Visit: Yes Status: Chronic Assessment and plan: History of anoxic brain injury with chronic dysarthria and chronic coarse tremors. (4) Seizures Current Visit: Yes Status: Chronic Assessment and plan: Stable, Continue home medications. (5) Bipolar mixed affective disorder, moderate Current Visit: No Status: Chronic Assessment and plan: Stable, Continue home medications. (6) Chronic pain syndrome Current Visit: No Status: Chronic (7) DVT prophylaxis Current Visit: Yes Status: Acute Assessment and plan: On heparin. - Subjective Interval history: Mr. Daniel is a 66 year old male CHF, COPD, coronary artery disease, GERD, hypertension, history of anoxic brain injury, seizure disorder, chronic tremors , history of PE, chronic pain and bipolar disorder. Patient presented to ED with complaints of shortness of breath. CXR revealed nodular opacity in the R infrahilar region and chest CT revealed massive opacity in the R lower lung. When seen today, patient was very lethargic. He denies shortness of breath when lying down but admits he gets SOB when exerting himself. He denies any CARLISLE, vision changes, light-headedness, dizziness, nausea, vomiting, fever, chills, or chest pain. - Constitutional Vitals: Temp Pulse Resp BP Pulse Ox 97.6 F 74 18 135/72 94 04/13/17 11:03 04/13/17 11:03 04/13/17 11:36 04/13/17 11:03 04/13/17 11:36 General appearance: Present: A&O X 3, pleasant, no acute distress, answers questions appropriately - Respiratory Respiratory exam: Present: wheezes (Bilaterally anterior and posterior. ). Absent: respiratory distress, stridor, tachypnea - Cardiovascular Cardiovascular exam: Present: RRR, +S1, +S2. Absent: diastolic murmur, systolic murmur - GI/Abdominal GI/Abdominal exam: Present: normal bowel sounds, soft. Absent: guarding, rebound, tenderness Internal Medicine: Result - Labs CBC & Chem 7: 04/13/17 09:30 04/13/17 09:30 Labs: Short CBC 04/13/17 Range/Units 09:30 WBC 12.1 H D (4.3-11.1) K/mcL Hgb 12.6 L (12.9-16.9) g/dL Hct 38.5 (37.5-50.1) % Plt Count 368 (140-400) K/mcL Neutrophils # 9.3 H (1.6-8.9) K/mcL BMP 04/13/17 09:30 Sodium 139 Potassium 3.7 Chloride 100 Carbon Dioxide 26 BUN 21 Creatinine 0.90 Glucose 131 H Calcium 9.4 Laboratory Tests 04/13/17 09:30 Magnesium 1.7 - ABG Interpretation ABG results: PT/INR, D-dimer PT 12.1 Seconds (9.4-12.1) 04/12/17 02:52 Consult Discharge Plan - Plan [facility]errals: [facility] [Primary Care Provider] - <Margarito Barnes - Last Filed: 04/13/17 19:50> Date of Encounter: 04/13/17 - Constitutional Vitals: Temp Pulse Resp BP Pulse Ox 98.1 F 84 15 161/79 91 04/13/17 18:52 04/13/17 18:52 04/13/17 18:52 04/13/17 18:52 04/13/17 18:52 Internal Medicine: Result - Labs CBC & Chem 7: 04/13/17 09:30 04/13/17 09:30 Labs: Short CBC 04/13/17 Range/Units 09:30 WBC 12.1 H D (4.3-11.1) K/mcL Hgb 12.6 L (12.9-16.9) g/dL Hct 38.5 (37.5-50.1) % Plt Count 368 (140-400) K/mcL Neutrophils # 9.3 H (1.6-8.9) K/mcL BMP 04/13/17 09:30 Sodium 139 Potassium 3.7 Chloride 100 Carbon Dioxide 26 BUN 21 Creatinine 0.90 Glucose 131 H Calcium 9.4 Liver Function 04/13/17 Range/Units 13:20 Albumin 3.0 L (3.5-5.0) g/dL - ABG Interpretation ABG results: PT/INR, D-dimer PT 12.1 Seconds (9.4-12.1) 04/12/17 02:52 - Attending Attestation I examined this patient and my medical decision-making was reviewed with the Resident Physician. I agree with the documented findings, disposition and treatment plan as described except to the extent set forth below. Patient tells me that he had a biopsy done about [address] [facility] in [place]. I reviewed the records from [place]. From November 2015 CT scan showed a right lower lobe mass. At that time he had bronchoscopy with BAL and biopsy which showed no evidence of malignancy. In view of these new findings I think it would be more prudent to cancel the transthoracic biopsy by IR and proceed with outpatient PET scan given the slow growth rate and negative biopsy results last year. It is my first day taking care of this patient. All problems are new to me today.
--- NOTE | 2017-04-13 18:25 | Electrocardiograph Report ---
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
[2017-04-13] MEDS: Acetaminophen 325 MG TABLET PO PRN (20:22)
[2017-04-13] MEDS: *HR* Morphine 2 MG/ML SYRINGE IVP PRN (21:33)
[2017-04-13 21:42] LABS: Bilirubin,Urine Negative (Negative); Blood,Urine Negative (Negative); Clarity,Urine Clear (Clear); Color,Urine Yellow (Yellow); Glucose,Urine (UA) Normal (Normal); Ketones,Urine Negative (Negative); Leukocyte Esterase,Urine Small (Negative); Nitrite,Urine Negative (Negative); Protein,Urine Negative (Neg-Trace); Specific Gravity,Urine 1.023 (1.010-1.025); Urobilinogen,Urine Normal (Normal)
[2017-04-13 21:45] LABS: Bacteria,Urine None Seen per hpf (None-Few); Hyaline Casts,Urine None Seen per lpf (None-Few); Squamous Epithelial Cell,Urine Moderate per lpf (None-Few)
[2017-04-13] MEDS: traZODone 50 MG TABLET PO PRN (22:21)
[2017-04-14] MEDS: levETIRAcetam 250 MG TABLET PO SCH ×3 (00:32→17:09)
[2017-04-14] MEDS: Ipratropium/Albuterol Neb 3 ML IH SCH ×6 (03:45→23:17)
[2017-04-14] MEDS: *HR* Heparin 5,000 UNIT/ML VIAL SQ SCH ×2 (06:25→18:28)
[2017-04-14] MEDS: Famotidine 20 MG/2 ML VIAL IVP SCH ×2 (06:27→17:10)
[2017-04-14 06:49] LABS: BUN/Creatinine Ratio 26 (6-26); Blood Urea Nitrogen 23 mg/dL (8-26); Calcium 9.1 mg/dL (8.6-10.8); Carbon Dioxide 31 mEq/L (19-29); Chloride 101 mEq/L (98-109); Glucose 74 mg/dL (70-99); Magnesium 1.6 mg/dL (1.6-2.6); Osmolality,Calculated 294 (280-300); Potassium 3.7 mEq/L (3.5-4.5); Sodium 141 mEq/L (136-145); eGFR For African Americans > 60 (> 60); eGFR For Non-African Americans > 60 (> 60)
[2017-04-14 06:59] LABS: Basophils # 0.2 K/mcL (0.0-0.2); Basophils % 1.1 %; Eosinophils # 0.2 K/mcL (0.0-0.6); Eosinophils % 1.6 %; Hematocrit 37.3 % (37.5-50.1); Hemoglobin 11.9 g/dL (12.9-16.9); Immature Granulocytes % 1.6 % (0-4); Lymphocytes # 3.6 K/mcL (0.6-4.6); Lymphocytes % 25.5 %; Mean Corpuscular HGB Conc 31.9 g/dL (31.6-35.5); Mean Corpuscular Hemoglobin 29.2 pg (28.0-33.3); Mean Corpuscular Volume 91.6 fL (83.0-100.0); Monocytes # 1.3 K/mcL (0.0-1.3); Neutrophils # 8.6 K/mcL (1.6-8.9); Platelet Count 372 K/mcL (140-400); Red Blood Count 4.07 M/mcL (4.19-5.50); Red Cell Distribution Width 13.2 % (11.5-14.5); Segmented Neutrophils % 61.2 %
[2017-04-14] MEDS: *HR* Morphine 2 MG/ML SYRINGE IVP PRN ×3 (09:08→21:31)
[2017-04-14] MEDS: clonazePAM 1 MG TABLET PO SCH ×2 (10:23→20:18)
[2017-04-14] MEDS: predniSONE 20 MG TABLET PO SCH (13:24)
[2017-04-14] MEDS: Valproic Acid 250 MG CAPSULE PO SCH ×4 (13:24→20:17)
[2017-04-14] MEDS: hydroCHLOROthiazide 25 MG TABLET PO SCH (13:25)
[2017-04-14] MEDS: amLODIPine 5 MG TABLET PO SCH ×2 (13:25→20:18)
[2017-04-14] MEDS: GuaiFENesin Liq 200 MG/10 ML UDC PO SCH ×4 (13:26→20:18)
[2017-04-14] MEDS: Furosemide 20 MG TABLET PO SCH ×2 (13:26→13:36)
[2017-04-14] MEDS: Primidone 50 MG TABLET PO SCH ×2 (13:26→20:18)
[2017-04-14] MEDS: Aspirin 81 MG TAB.CHEW PO SCH (13:30)
[2017-04-14] MEDS: Cefdinir 300 MG CAPSULE PO SCH ×2 (13:34→20:17)
[2017-04-14] MEDS: Nystatin Cream 15 GM TUBE TP SCH ×2 (13:36→20:19)
--- NOTE | 2017-04-14 14:32 | Internal Med Progress Note ---
<ConstanzaDevan - Last Filed: 04/14/17 16:08> Date of Encounter: 04/14/17 Time of Encounter: 14:20 - Assessment and plan (1) Right lower lobe lung mass Current Visit: Yes Status: Acute Assessment and plan: Lung mass in right ower lobe has been followed with surveillance CT since 2013 and has grown by 3cm. Given his smoking history and underlying COPD, a primary lung malignancy is more likely than PNA or round atelectasis. Records were obtained from [facility] where BAL cytology of patient showed no signs of malignancy in 2016. - Patient put back on antibiotics today (omniceph) due to possibility of PNA based on prior cytology report in 2016. - Patient underwent lung biopsy today. Report pending. (2) Acute exacerbation of chronic obstructive airways disease Current Visit: Yes Status: Acute Assessment and plan: - On PO Prednisone. - Antibiotics started again. On omniceph. - Continue Duoneb breathing treatment. (3) Anoxic brain injury Current Visit: Yes Status: Chronic Assessment and plan: History of anoxic brain injury with chronic dysarthria and chronic coarse tremors. (4) Seizures Current Visit: Yes Status: Chronic Assessment and plan: Stable, Continue home medications. (5) Bipolar mixed affective disorder, moderate Current Visit: No Status: Chronic Assessment and plan: Stable, Continue home medications. (6) Chronic pain syndrome Current Visit: No Status: Chronic (7) DVT prophylaxis Current Visit: Yes Status: Acute Assessment and plan: On heparin. - Subjective Interval history: Mr. Daniel is a 66 year old male CHF, COPD, coronary artery disease, GERD, hypertension, history of anoxic brain injury, seizure disorder, chronic tremors , history of PE, chronic pain and bipolar disorder. Patient presented to ED with complaints of shortness of breath. CXR revealed nodular opacity in the R infrahilar region and chest CT revealed massive opacity in the R lower lung. When seen today, patient was less lethargic than yesterday. He denies shortness of breath when lying down but admits he gets SOB when exerting himself. He denies any CARLISLE, vision changes, light-headedness, dizziness, nausea, vomiting, fever, chills, or chest pain. - Constitutional Vitals: Temp Pulse Resp BP Pulse Ox 98.1 F 77 17 150/80 90 04/14/17 12:19 04/14/17 12:19 04/14/17 12:19 04/14/17 12:19 04/14/17 12:19 General appearance: Present: A&O X 2, pleasant, no acute distress, answers questions appropriately - Respiratory Respiratory exam: Present: wheezes (bilaterally but less intense than yesterday) . Absent: rhonchi, stridor, tachypnea - Cardiovascular Cardiovascular exam: Present: distant heart sounds, RRR, +S1, +S2. Absent: diastolic murmur, systolic murmur - GI/Abdominal GI/Abdominal exam: Present: normal bowel sounds, soft. Absent: guarding, rebound, tenderness - Extremities Exam Extremities exam: Present: radial pulses palpable and symmetrical. Absent: pedal edema Additional comments: Pedal pulses intact bilaterally. Internal Medicine: Result - Labs CBC & Chem 7: 04/14/17 05:39 04/14/17 05:39 Labs: Short CBC 04/14/17 Range/Units 05:39 WBC 14.0 H (4.3-11.1) K/mcL Hgb 11.9 L (12.9-16.9) g/dL Hct 37.3 L (37.5-50.1) % Plt Count 372 (140-400) K/mcL Neutrophils # 8.6 (1.6-8.9) K/mcL BMP 04/14/17 05:39 Sodium 141 Potassium 3.7 Chloride 101 Carbon Dioxide 31 H BUN 23 Creatinine 0.87 Glucose 74 Calcium 9.1 Urine 04/13/17 Range/Units 21:34 Urine Color Yellow (Yellow) Urine Clarity Clear (Clear) Urine pH 6.0 (5.0-8.0) pH Units Ur Specific [place] 1.023 (1.010-1.025) Urine Protein Negative (Neg-Trace) mg/dL Urine Glucose (UA) Normal (Normal) mg/dL - ABG Interpretation ABG results: PT/INR, D-dimer PT 12.1 Seconds (9.4-12.1) 04/12/17 02:52 Consult Discharge Plan - Plan [facility] Care Provider[facility] - 04/29/17 11:30 am <Margarito Barnes - Last Filed: 04/14/17 17:20> Date of Encounter: 04/14/17 - Constitutional Vitals: Temp Pulse Resp BP Pulse Ox 98.1 F 72 16 131/70 99 04/14/17 15:34 04/14/17 15:34 04/14/17 15:34 04/14/17 15:34 04/14/17 15:34 Internal Medicine: Result - Labs CBC & Chem 7: 04/14/17 05:39 04/14/17 05:39 Labs: Short CBC 04/14/17 Range/Units 05:39 WBC 14.0 H (4.3-11.1) K/mcL Hgb 11.9 L (12.9-16.9) g/dL Hct 37.3 L (37.5-50.1) % Plt Count 372 (140-400) K/mcL Neutrophils # 8.6 (1.6-8.9) K/mcL BMP 04/14/17 05:39 Sodium 141 Potassium 3.7 Chloride 101 Carbon Dioxide 31 H BUN 23 Creatinine 0.87 Glucose 74 Calcium 9.1 Urine 04/13/17 Range/Units 21:34 Urine Color Yellow (Yellow) Urine Clarity Clear (Clear) Urine pH 6.0 (5.0-8.0) pH Units Ur Specific [place] 1.023 (1.010-1.025) Urine Protein Negative (Neg-Trace) mg/dL Urine Glucose (UA) Normal (Normal) mg/dL - ABG Interpretation ABG results: PT/INR, D-dimer PT 12.1 Seconds (9.4-12.1) 04/12/17 02:52 - Impressions Impressions Lung Biopsy CT 04/14/17 00:00 IMPRESSION: Successful CT guided core biopsy of the right lung lobe. D/ / 04/14/2017 15:31:14 Ariadna Wesley MD / [facility] Interpreting Provider: Ariadna Wesley MD Chest X-Ray 04/14/17 14:33 IMPRESSION: Patchy opacity in the medial right lung base which correlates to opacity noted on the prior CT. No discrete pneumothorax. D/ /14/2017 15:28:50 Tammie Chacon MD / [facility] Interpreting Provider: Tammie Chacon MD - Attending Attestation I examined this patient and my medical decision-making was reviewed with the Resident Physician. I agree with the documented findings, disposition and treatment plan as described except to the extent set forth below. Patient's WBC is trending up. I will start Omnicef. Possible right lower lobe pneumonia versus slow-growing mass versus atelectasis. Antibiotics were discontinued 2 days ago. Since then there has been an uptrend in WBC.
--- NOTE | 2017-04-14 14:33 | IR Procedure Note ---
Date of procedure: 04/14/17 Consent Obtained: Verbal consent Timeout: Correct patient and procedure verified, Correct site verified, Time out performed, Skin prep completed Indications: lung mass Procedure Performed: lung biopssy Site/Technique: rt lung, 18G cores, 4 samples Results/Findings: adequate biopsy Estimated blood loss (cc): 0 Complications: None; Tolerated procedure well Post Procedure Treatment Plan: CXR
[2017-04-15] MEDS: traZODone 50 MG TABLET PO PRN (00:03)
[2017-04-15] MEDS: levETIRAcetam 250 MG TABLET PO SCH ×2 (00:28→09:31)
[2017-04-15] MEDS: *HR* Morphine 2 MG/ML SYRINGE IVP PRN ×2 (03:15→07:44)
[2017-04-15] MEDS: Ipratropium/Albuterol Neb 3 ML IH SCH ×4 (03:54→11:39)
[2017-04-15] MEDS: *HR* Heparin 5,000 UNIT/ML VIAL SQ SCH (05:04)
[2017-04-15] MEDS: Famotidine 20 MG/2 ML VIAL IVP SCH (05:06)
[2017-04-15 05:27] LABS: Basophils # 0.1 K/mcL (0.0-0.2); Basophils % 0.8 %; Eosinophils % 0.1 %; Hematocrit 38.6 % (37.5-50.1); Hemoglobin 12.4 g/dL (12.9-16.9); Immature Granulocytes % 1.5 % (0-4); Lymphocytes # 1.8 K/mcL (0.6-4.6); Lymphocytes % 13.7 %; Mean Corpuscular HGB Conc 32.1 g/dL (31.6-35.5); Mean Corpuscular Volume 93.2 fL (83.0-100.0); Mean Platelet Volume 9.8 fL (9.4-12.4); Monocytes # 1.3 K/mcL (0.0-1.3); Monocytes % 10.1 %; Neutrophils # 9.7 K/mcL (1.6-8.9); Platelet Count 392 K/mcL (140-400); Red Blood Count 4.14 M/mcL (4.19-5.50); Red Cell Distribution Width 13.2 % (11.5-14.5); Segmented Neutrophils % 73.8 %
[2017-04-15 05:40] LABS: BUN/Creatinine Ratio 30 (6-26); Blood Urea Nitrogen 27 mg/dL (8-26); Calcium 9.7 mg/dL (8.6-10.8); Carbon Dioxide 28 mEq/L (19-29); Chloride 99 mEq/L (98-109); Glucose 110 mg/dL (70-99); Osmolality,Calculated 292 (280-300); Sodium 138 mEq/L (136-145); eGFR For African Americans > 60 (> 60); eGFR For Non-African Americans > 60 (> 60)
[2017-04-15 05:41] LABS: Potassium 4.4 mEq/L (3.5-4.5)
--- NOTE | 2017-04-15 08:23 | Discharge Summary ---
<Devan Apodaca - Last Filed: 04/15/17 08:31> Date of Encounter: 04/15/17 Time of Encounter: 08:15 - Discharge Diagnosis (1) Right lower lobe lung mass Priority: Primary Status: Acute (2) Acute exacerbation of chronic obstructive airways disease Priority: Primary Status: Acute (3) Anoxic brain injury Priority: Primary Status: Chronic (4) Seizures Priority: Primary Status: Chronic (5) Bipolar mixed affective disorder, moderate Priority: Primary Status: Chronic (6) Chronic pain syndrome Priority: Primary Status: Chronic (7) DVT prophylaxis Priority: Primary Status: Acute - Discharge Medications Prescriptions: Cefdinir [Omnicef] 300 mg PO BID #8 capsule predniSONE [PredniSONE] 10 mg PO DAILY #20 tablet Home Medications: Aspirin 81 mg PO DAILY 01/17/16 [History] Atenolol 100 mg PO DAILY 01/17/16 [History] Docusate [Colace] 100 mg PO BID PRN 01/17/16 [History] Furosemide [Lasix] 20 mg PO DAILY 01/17/16 [History] GuaiFENesin/Dextromethorphan [Kro Child Mucus Rlf Cough Liq] 10 ml PO Q6H PRN [History] Guaifenesin 400 mg PO TID 01/17/16 [History] Ipratropium/Albuterol Sulfate [Combivent Respimat Inhal [place]] 1 puff IH QID [History] Ketoconazole Shampoo [Nizoral Shampoo] 1 appl TP AD PRN 01/17/16 [History] Potassium Chloride [K-Tab ER] 10 meq PO DAILY 01/17/16 [History] Primidone [Mysoline] 100 mg PO BID 01/17/16 [History] Sertraline [Zoloft] 200 mg PO DAILY 01/17/16 [History] amLODIPine [Norvasc] 5 mg PO DAILY 01/17/16 [History] Acetaminophen [Tylenol] 650 mg PO QID PRN 04/12/17 [History] Atorvastatin [Lipitor] 40 mg PO HS 04/12/17 [History] Baclofen [Lioresal] 5 mg PO TID 04/12/17 [History] Budesonide [Pulmicort Flexhaler 180mcg] 2 puff IH BID 04/12/17 [History] Cholecalciferol (D-3) [Vitamin D] 2,000 unit PO BID 04/12/17 [History] Divalproex (24 HR) [Depakote ER (24 HR)] 500 mg PO BID 04/12/17 [History] Ibuprofen [Motrin] 600 mg PO Q8HR PRN 04/12/17 [History] Ipratropium/Albuterol Neb [Duoneb] 3 ml IH Q6H PRN 04/12/17 [History] Lidocaine Patch [Lidoderm 5% patch] 2 each TP DAILY 04/12/17 [History] Lisinopril 2.5 mg PO DAILY 04/12/17 [History] Nystatin OINT [Mycostatin] 1 appl TP BID 04/12/17 [History] Omeprazole [PriLOSEC] 20 mg PO DAILY 04/12/17 [History] Ranitidine HCl [Zantac] 150 mg PO BID 04/12/17 [History] Selenium Sulfide 1 appl TP Q72H 04/12/17 [History] Sennosides [Senna] 17.2 mg PO HS 04/12/17 [History] clonazePAM [Klonopin] 1 mg PO TID 04/12/17 [History] hydrOXYzine HCl [Hydroxyzine HCl] 50 mg PO HS PRN 04/12/17 [History] Bisacodyl [Dulcolax] 10 mg RC DAILY PRN supp.rect 04/15/17 [Rx] Cefdinir [Omnicef] 300 mg PO BID #8 capsule 04/15/17 [Rx] Haloperidol [Haldol] 5 mg PO Q6H PRN tablet 04/15/17 [Rx] Nystatin Cream [Mycostatin Cream] 1 appl TP BID tube 04/15/17 [Rx] Polyethylene Glycol 3350 [MiraLAX] 17 gm PO DAILY PRN powd.pack 04/15/17 [Rx] Simvastatin [Zocor] 20 mg PO QPM tablet 04/15/17 [Rx] Valproic Acid [Depakene] 250 mg PO QID capsule 04/15/17 [Rx] hydroCHLOROthiazide [Hydrochlorothiazide] 12.5 mg PO DAILY tablet 04/15/17 [Rx] levETIRAcetam [Keppra] 500 mg PO Q8H tablet 04/15/17 [Rx] predniSONE [PredniSONE] 10 mg PO DAILY #20 tablet 04/15/17 [Rx] Allergies/Adverse Reactions: 3 Allergy/AdvReac Type Severity Reaction Status Date / Time moxifloxacin Allergy Swelling Verified 01/28/16 17:07 of Lip/Tongue/Throat Procedures/tests Complete & Pending: Procedures Performed prior 72 hours Category Date Time Status CT biopsy lung RT [CT] Routine Cat Scan 04/14/17 Completed Date of admission: 04/11/17 23:38 Primary care physician: PCP [place] Consults: 04/12/17 01:23 Consult to Pulmonology [CONS] Routine Consulting Provider: Pulm [facility] [place] Reason for Consult: Right lung mass Call Completed: No 04/12/17 12:31 Consult to Bad Credit Collector [CONS] Routine Reason for SW Consult: home health- to renew services with [place] 04/14/17 05:40 Consult to Interventional Radiology [CONS] Routine Consulting Provider: Radiology Interventional [place] Reason for Consult: Right lower lung mass Time Notified: 15:30 Call Completed: Yes [facility] Anticipated date of discharge: 04/15/17 - Patient Status Disposition: Home Health Service Condition: Good Functional capacity at discharge: bed bound Overall status at discharge: patient is progressing back to baseline - Discharge Instructions Follow Up With: SHAKEELPCP [Primary Care Provider] - 04/29/17 11:30 am - Diet and Activity Activity: other Diet: low salt diet Interval History: Mr. Daniel is a 66 year old male with a PMH of CHF, COPD, coronary artery disease , GERD, hypertension, history of anoxic brain injury, seizure disorder, chronic tremors, history of PE, chronic pain and bipolar disorder. Patient presented to ED with complaints of shortness of breath. Hospital course: Mr. Daniel is a 66 year old male with a PMH of CHF, COPD, coronary artery disease , GERD, hypertension, history of anoxic brain injury, seizure disorder, chronic tremors, history of PE, chronic pain and bipolar disorder. Patient presented to ED with complaints of shortness of breath. CXR revealed nodular opacity in the R infrahilar region and chest CT revealed massive opacity in the R lower lung. There was concern of PNA vs round atelectasis vs lung carcinoma. Patient was put on rocephin and azithromycin for possible PNA and on methylprednisone for his COPD exacerbation. Patient underwent biopsy for the mass in his R lung. Results are currently pending. Records were subsequently received from [facility] where BAL cytology of patient showed no signs of malignancy in 2016. Patient will still need to have PET CT scan arranged in outpatient. He will also need to follow-up with pulmonology. Patient will be discharged with a prednisone taper for 8 days and will continue taking omniceph for 4 more days. When seen today, patient was A&Ox3. He denies any shortness of breath, chest pain, nausea, vomiting, light-headedness, syncope, headaches, fever, chills, or abdominal pain. He has home health service and will be discharged home. - Time Spent with Patient Total time spent providing and/or coordinating discharge services: Greater than 30 minutes - Constitutional Vitals: Temp Pulse Resp BP Pulse Ox 97.7 F 79 16 157/76 90 04/15/17 06:58 04/15/17 06:58 04/15/17 06:58 04/15/17 06:58 04/15/17 06:58 General appearance: Present: A&O X 3, pleasant, no acute distress, answers questions appropriately - Respiratory Respiratory exam: Present: wheezes (Bilaterally). Absent: respiratory distress , tachypnea - Cardiovascular Cardiovascular exam: Present: RRR, +S1, +S2. Absent: diastolic murmur, systolic murmur - GI/Abdominal GI/Abdominal exam: Present: normal bowel sounds, soft. Absent: guarding, rebound, tenderness <Margarito Barnes - Last Filed: 04/15/17 17:57> Date of Encounter: 04/15/17 Procedures/tests Complete & Pending: Procedures Performed prior 72 hours Category Date Time Status CT biopsy lung RT [CT] Routine Cat Scan 04/14/17 Completed Date of admission: 04/11/17 23:38 Primary care physician: [facility] Consults: 04/12/17 01:23 Consult to Pulmonology [CONS] Routine Consulting Provider: Pulm [facility] [place] Reason for Consult: Right lung mass Call Completed: No 04/12/17 12:31 Consult to Bad Credit Collector [CONS] Routine Reason for SW Consult: home health- to renew services with [place] 04/14/17 05:40 Consult to Interventional Radiology [CONS] Routine Consulting Provider: Radiology Interventional Cols Reason for Consult: Right lower lung mass Time Notified: 15:30 Call Completed: Yes Hospital course: Mr. Daniel is a 66 year old male - Time Spent with Patient Total time spent providing and/or coordinating discharge services: - Constitutional Vitals: Temp Pulse Resp BP Pulse Ox 97.4 F L 70 16 168/89 90 04/15/17 11:01 04/15/17 11:01 04/15/17 11:39 04/15/17 11:01 04/15/17 11:39 - Attending Attestation I examined this patient and my medical decision-making was reviewed with the Resident Physician, Dr Carmona. I agree with the documented findings, disposition and treatment plan as described except to the extent set forth below. Patient was treated for COPD for 3 days. His breathing has improved. He has a lung mass and had a transthoracic CT-guided biopsy, pathology report is pending. He was advised to follow up with pulmonary service closely after discharge. Margarito Barnes MD
[2017-04-15] MEDS: hydroCHLOROthiazide 25 MG TABLET PO SCH (09:30)
[2017-04-15] MEDS: predniSONE 20 MG TABLET PO SCH (09:30)
[2017-04-15] MEDS: Primidone 50 MG TABLET PO SCH (09:30)
[2017-04-15] MEDS: Furosemide 20 MG TABLET PO SCH (09:30)
[2017-04-15] MEDS: Aspirin 81 MG TAB.CHEW PO SCH (09:30)
--- NOTE | 2017-04-15 09:30 | Physician Discharge Referral ---
Home Health/Hosp Referral Info Transfer to: Home Health Attending Provider: Dr. Barnes Provider in Charge Post Discharge: PCP - Diagnosis (1) Right lower lobe lung mass Priority: Primary Status: Acute (2) Acute exacerbation of chronic obstructive airways disease Priority: Primary Status: Acute (3) Anoxic brain injury Priority: Primary Status: Chronic (4) Seizures Priority: Primary Status: Chronic (5) Bipolar mixed affective disorder, moderate Priority: Primary Status: Chronic (6) Chronic pain syndrome Priority: Primary Status: Chronic (7) DVT prophylaxis Priority: Primary Status: Acute - Respiratory Orders Smoking Cessation: Smoking cessation has been advised. For more information, call the [place] Tobacco Quit Line at 7-026-INBJ-NOW. - Diet/Nutrition Diet/Nutrition Orders: No Added Salt (BENJAMIN) - Activity Activity Orders: Bedrest - Services Needed Following services are medically necessary services: Home Health Aide - Transfer Medications Prescriptions: Cefdinir [Omnicef] 300 mg PO BID #8 capsule predniSONE [PredniSONE] 10 mg PO DAILY #20 tablet Home Medications: Aspirin 81 mg PO DAILY 01/17/16 [History] Atenolol 100 mg PO DAILY 01/17/16 [History] Docusate [Colace] 100 mg PO BID PRN 01/17/16 [History] Furosemide [Lasix] 20 mg PO DAILY 01/17/16 [History] GuaiFENesin/Dextromethorphan [Kro Child Mucus Rlf Cough Liq] 10 ml PO Q6H PRN [History] Guaifenesin 400 mg PO TID 01/17/16 [History] Ipratropium/Albuterol Sulfate [Combivent Respimat Inhal [place]] 1 puff IH QID [History] Ketoconazole Shampoo [Nizoral Shampoo] 1 appl TP AD PRN 01/17/16 [History] Potassium Chloride [K-Tab ER] 10 meq PO DAILY 01/17/16 [History] Primidone [Mysoline] 100 mg PO BID 01/17/16 [History] Sertraline [Zoloft] 200 mg PO DAILY 01/17/16 [History] amLODIPine [Norvasc] 5 mg PO DAILY 01/17/16 [History] Acetaminophen [Tylenol] 650 mg PO QID PRN 04/12/17 [History] Atorvastatin [Lipitor] 40 mg PO HS 04/12/17 [History] Baclofen [Lioresal] 5 mg PO TID 04/12/17 [History] Budesonide [Pulmicort Flexhaler 180mcg] 2 puff IH BID 04/12/17 [History] Cholecalciferol (D-3) [Vitamin D] 2,000 unit PO BID 04/12/17 [History] Divalproex (24 HR) [Depakote ER (24 HR)] 500 mg PO BID 04/12/17 [History] Ibuprofen [Motrin] 600 mg PO Q8HR PRN 04/12/17 [History] Ipratropium/Albuterol Neb [Duoneb] 3 ml IH Q6H PRN 04/12/17 [History] Lidocaine Patch [Lidoderm 5% patch] 2 each TP DAILY 04/12/17 [History] Lisinopril 2.5 mg PO DAILY 04/12/17 [History] Nystatin OINT [Mycostatin] 1 appl TP BID 04/12/17 [History] Omeprazole [PriLOSEC] 20 mg PO DAILY 04/12/17 [History] Ranitidine HCl [Zantac] 150 mg PO BID 04/12/17 [History] Selenium Sulfide 1 appl TP Q72H 04/12/17 [History] Sennosides [Senna] 17.2 mg PO HS 04/12/17 [History] clonazePAM [Klonopin] 1 mg PO TID 04/12/17 [History] hydrOXYzine HCl [Hydroxyzine HCl] 50 mg PO HS PRN 04/12/17 [History] Bisacodyl [Dulcolax] 10 mg RC DAILY PRN supp.rect 04/15/17 [Rx] Cefdinir [Omnicef] 300 mg PO BID #8 capsule 04/15/17 [Rx] Haloperidol [Haldol] 5 mg PO Q6H PRN tablet 04/15/17 [Rx] Nystatin Cream [Mycostatin Cream] 1 appl TP BID tube 04/15/17 [Rx] Polyethylene Glycol 3350 [MiraLAX] 17 gm PO DAILY PRN powd.pack 04/15/17 [Rx] Simvastatin [Zocor] 20 mg PO QPM tablet 04/15/17 [Rx] Valproic Acid [Depakene] 250 mg PO QID capsule 04/15/17 [Rx] hydroCHLOROthiazide [Hydrochlorothiazide] 12.5 mg PO DAILY tablet 04/15/17 [Rx] levETIRAcetam [Keppra] 500 mg PO Q8H tablet 04/15/17 [Rx] predniSONE [PredniSONE] 10 mg PO DAILY #20 tablet 04/15/17 [Rx] Allergies/Adverse Reactions: 3 Allergy/AdvReac Type Severity Reaction Status Date / Time moxifloxacin Allergy Swelling Verified 01/28/16 17:07 of Lip/Tongue/Throat Certification: Further, I certify that my clinical findings support that this patient is homebound (i.e. absences from home require considerable and taxing effort and are for medical reasons or buddhism services or infrequently or short duration when for other reasons) because: Homebound Reason: Patient requires assistance of a person or device to safely leave home Attestation: My signature below is to certify that this patient is under my care and that I, or nurse practitioner, or a physician's warehouse administrative assistant working with me, has a face-to -face encounter with this patient.
[2017-04-15] MEDS: amLODIPine 5 MG TABLET PO SCH (09:31)
[2017-04-15] MEDS: clonazePAM 1 MG TABLET PO SCH (09:31)
[2017-04-15] MEDS: Cefdinir 300 MG CAPSULE PO SCH (09:31)
[2017-04-15] MEDS: Valproic Acid 250 MG CAPSULE PO SCH (09:31)
[2017-04-15] MEDS: GuaiFENesin Liq 200 MG/10 ML UDC PO SCH (09:31)
[2017-04-15] MEDS: Nystatin Cream 15 GM TUBE TP SCH (09:38)
[2017-04-15] MEDS: Acetaminophen 325 MG TABLET PO PRN (09:49)
[2017-04-15 11:03] VITALS: BP 168/89
== END 2017-04-15 12:10 | disposition home health service (06) | DRG 167 ==
LOC: 3BNU 18:06 → EMEROO 18:06 → 3BNU 21:30 → SUATTDRO 23:38 → 3ANU 04-15 02:18
PROVIDERS: ADMIT Pediatrics; ATTEND Internal Medicine

== ENCOUNTER 2018-04-05 02:22 | Inpatient (IN) ==
[2018-04-05] MEDS ORDERED: Isovue-370 500 ML INFUS..BTL IV ONE (02:31)
[2018-04-05 03:09] LABS: Basophils # 0.1 K/mcL (0.0-0.2); Basophils % 0.6 %; Eosinophils # 0.3 K/mcL (0.0-0.6); Eosinophils % 2.9 %; Hemoglobin 10.6 g/dL (12.9-16.9); Immature Granulocytes % 0.5 % (0-4); Lymphocytes # 2.5 K/mcL (0.6-4.6); Lymphocytes % 23.6 %; Mean Corpuscular HGB Conc 32.1 g/dL (31.6-35.5); Mean Corpuscular Hemoglobin 29.6 pg (28.0-33.3); Mean Corpuscular Volume 92.2 fL (83.0-100.0); Mean Platelet Volume 9.6 fL (9.4-12.4); Monocytes # 1.1 K/mcL (0.0-1.3); Monocytes % 10.5 %; Neutrophils # 6.7 K/mcL (1.6-8.9); Platelet Count 231 K/mcL (140-400); Red Blood Count 3.58 M/mcL (4.19-5.50); Red Cell Distribution Width 14.4 % (11.5-14.5); Segmented Neutrophils % 61.9 %
[2018-04-05 03:28] LABS: Alanine Aminotransferase 8 Units/L (7-52); Albumin 3.4 g/dL (3.5-5.7); Albumin/Globulin Ratio 1.3 (1.1-2.2); Alkaline Phosphatase 52 Units/L (34-104); Aspartate Amino Transferase 10 Units/L (13-39); BUN/Creatinine Ratio 33 (6-26); Bilirubin,Total 0.2 mg/dL (0.3-1.0); Blood Urea Nitrogen 31 mg/dL (8-23); Calcium 8.7 mg/dL (8.6-10.3); Carbon Dioxide 28 mEq/L (23-29); Chloride 106 mEq/L (98-107); Globulin 2.7 g/dL (2.4-3.5); Glucose 78 mg/dL (70-105); Osmolality,Calculated 295 (280-300); Sodium 140 mEq/L (136-145); Total Protein 6.1 g/dL (6.4-8.9); eGFR For Non-African Americans > 60 (> 60)
[2018-04-05] MEDS ORDERED: Ipratropium/Albuterol Neb 3 ML IH ONE (04:06)
[2018-04-05 05:23] LABS: Prothrombin Time 11.6 Seconds (9.4-12.1)
[2018-04-05 05:26] LABS: Activated Partial Thrombo Time 30.7 Seconds (26.0-36.0)
[2018-04-05 05:33] LABS: Troponin I < 0.03 ng/mL (< 0.04)
--- NOTE | 2018-04-05 05:37 | Emergency Department Note ---
Disposition Clinical Impression: Hemoptysis Disposition: Admitted As Inpatient Condition: Fair Time of Disposition: 06:05 General Adult HPI - General Chief complaint: ED General Medical Stated complaint: copd Time Seen by Provider: 04/05/18 02:23 Source: patient Mode of arrival: EMS Limitations: physical limitation, other Nursing Notes Reviewed: Yes Vital Signs Reviewed: Yes - History of Present Illness HPI Narrative: Patient is a 67-year-old male with a past medical history of left-sided lung mass, nontoxic brain injury, and COPD presents to the emergency department from [facility] see for evaluation of hemoptysis. The patient states that his symptoms are gone for about 3 days when she is coughing up sputum that is blood-tinged. The patient was originally seen [facility] see for this and was discharged 3 days ago as would return there this evening with the same complaint and requested that no lab work or workup. On he be sent directly to [facility]. Patient himself denies any fevers, chills, chest pain, shortness of breath, nausea, vomiting, abdominal pain. Pain Scale: 0 - Related Data Home Medications Medication Instructions Recorded Confirmed Aspirin 81 mg PO DAILY 01/17/16 04/12/17 Atenolol 100 mg PO DAILY 01/17/16 04/12/17 Docusate [Colace] 100 mg PO BID PRN 01/17/16 04/12/17 Furosemide [Lasix] 20 mg PO DAILY 01/17/16 04/12/17 GuaiFENesin/Dextromethorphan [Kro 10 ml PO Q6H PRN 01/17/16 04/12/17 Child Mucus Rlf Cough Liq] Guaifenesin 400 mg PO TID 01/17/16 04/12/17 Ipratropium/Albuterol Sulfate 1 puff IH QID 01/17/16 04/12/17 [Combivent Respimat Inhal [place]] Ketoconazole Shampoo [Nizoral 1 appl TP AD PRN 01/17/16 04/12/17 Shampoo] Potassium Chloride [K-Tab ER] 10 meq PO DAILY 01/17/16 04/12/17 Primidone [Mysoline] 100 mg PO BID 01/17/16 04/12/17 Sertraline [Zoloft] 200 mg PO DAILY 01/17/16 04/12/17 amLODIPine [Norvasc] 5 mg PO DAILY 01/17/16 04/12/17 Acetaminophen [Tylenol] 650 mg PO QID PRN 04/12/17 04/12/17 Atorvastatin [Lipitor] 40 mg PO HS 04/12/17 04/12/17 Baclofen [Lioresal] 5 mg PO TID 04/12/17 04/12/17 Budesonide [Pulmicort Flexhaler 2 puff IH BID 04/12/17 04/12/17 180mcg] Cholecalciferol (D-3) [Vitamin D] 2,000 unit PO BID 04/12/17 04/12/17 Divalproex (24 HR) [Depakote ER 500 mg PO BID 04/12/17 04/12/17 (24 HR)] Ibuprofen [Motrin] 600 mg PO Q8HR PRN 04/12/17 04/12/17 Ipratropium/Albuterol Neb [Duoneb] 3 ml IH Q6H PRN 04/12/17 04/12/17 Lidocaine Patch [Lidoderm 5% patch] 2 each TP DAILY 04/12/17 04/12/17 Lisinopril 2.5 mg PO DAILY 04/12/17 04/12/17 Nystatin OINT [Mycostatin] 1 appl TP BID 04/12/17 04/12/17 Omeprazole [PriLOSEC] 20 mg PO DAILY 04/12/17 04/12/17 Selenium Sulfide 1 appl TP Q72H 04/12/17 04/12/17 Sennosides [Senna] 17.2 mg PO HS 04/12/17 04/12/17 clonazePAM [Klonopin] 1 mg PO TID 04/12/17 04/12/17 hydrOXYzine HCl [Hydroxyzine HCl] 50 mg PO HS PRN 04/12/17 04/12/17 raNITIdine HCl [Zantac] 150 mg PO BID 04/12/17 04/12/17 Previous Rx's Medication Instructions Recorded Bisacodyl [Dulcolax] 10 mg RC DAILY PRN supp.rect 04/15/17 Cefdinir [Omnicef] 300 mg PO BID #8 capsule 04/15/17 Haloperidol [Haldol] 5 mg PO Q6H PRN tablet 04/15/17 Nystatin Cream [Mycostatin Cream] 1 appl TP BID tube 04/15/17 Polyethylene Glycol 3350 [MiraLAX] 17 gm PO DAILY PRN powd.pack 04/15/17 Simvastatin [Zocor] 20 mg PO QPM tablet 04/15/17 Valproic Acid [Depakene] 250 mg PO QID capsule 04/15/17 hydroCHLOROthiazide 12.5 mg PO DAILY tablet 04/15/17 [Hydrochlorothiazide] levETIRAcetam [Keppra] 500 mg PO Q8H tablet 04/15/17 predniSONE [PredniSONE] 10 mg PO DAILY #20 tablet 04/15/17 Allergies Allergy/AdvReac Type Severity Reaction Status Date / Time moxifloxacin Allergy Swelling Verified 01/28/16 17:07 of Lip/Tongue/Throat All systems ED: reviewed and negative except as stated. Review of Systems: As Per HPI Constitutional: Denies: fever Past Medical History - Past Medical History Attestation: Yes The following information was validated with the patient. Medical history: Reports: CHF, COPD, coronary artery disease, GERD, hypertension , pulmonary embolus, seizures, other Surgical history: Reports: appendectomy, tracheostomy, other Psychiatric history: Reports: anxiety, bipolar - Social History Smoking Status: Former smoker Smokeless Tobacco Status: No Alcohol use: Reports: none Drug use: Reports: none Physical Exam - General Limitations: physical limitation, other General appearance: alert - Head Head exam: atraumatic, normocephalic, normal inspection - Eye Eye exam: Present: normal appearance, PERRL - ENT ENT exam: normal exam, normal oropharynx - Neck Neck exam: Present: normal inspection, full ROM, trachea midline - Chest Chest inspection: Present: normal inspection, symmetric chest wall rise. Absent : tenderness - Respiratory Respiratory exam: Present: wheezes. Absent: respiratory distress, accessory muscle use, prolonged expiratory phase - Cardiovascular Cardiovascular exam: Present: regular rate, normal rhythm, normal heart sounds, +S1, +S2 - Abdominal Exam Abdominal exam: Present: soft, Non-Tender. Absent: tenderness - Extremities Exam Extremities exam: Present: normal inspection, full ROM, normal capillary refill. Absent: tenderness - Neurological Exam Neurological exam: Present: alert, oriented X3 - Psychiatric Psychiatric exam: Present: normal affect, normal mood - Skin Skin exam: Present: warm, dry, intact, normal color Course Course Narrative: Patient presents for evaluation of streaks of blood in his sputum that has been going on for approximately 3 days. He denies any dyspnea beyond what is chronic for him. On exam he was wheezing and administered breathing treatments. Basic lab work was performed and unremarkable. Coags were within normal limits. CT of the chest showed a lung mass consistent with a mass on prior CT imaging. So this time that the patient has small amount of bleeding from the lung mass. Does appear and old notes from a year ago that was possibly worked up and said to be noncancerous. Patient has memory issues so obtaining history from the patient is difficult as far as any insight into the lung mass. Discussed the patient's case with the hospitalist, Dr. Denton, on -call and he agreed to accept the patient requested that we had on a type and screen, however patient is stable at this time for admission. Vital Signs Temperature 98.1 F 04/05/18 02:30 Pulse Rate 68 04/05/18 02:30 Respiratory Rate 19 04/05/18 02:30 Blood Pressure 177/91 04/05/18 02:30 O2 Sat by Pulse Oximetry 100 04/05/18 02:30 Temperature 98.1 F 04/05/18 02:30 Pulse Rate 58 04/05/18 04:03 Respiratory Rate 19 04/05/18 04:49 Blood Pressure 165/83 04/05/18 04:49 O2 Sat by Pulse Oximetry 97 04/05/18 04:49 Oxygen Delivery Oxygen Delivery Nasal Cannula Medical Decision Making - Medical Records Medical records reviewed: Yes I reviewed the patient's medical records. - Lab Data Lab results reviewed: Yes I reviewed the patient's lab results. Result diagrams: 04/05/18 02:57 04/05/18 02:57 Lab Results 04/05/18 04/05/18 04/05/18 Range/Units 02:57 02:57 02:57 WBC 10.8 (4.3-11.1) K/mcL RBC 3.58 L (4.19-5.50) M/mcL Hgb 10.6 L (12.9-16.9) g/dL Hct 33.0 L (37.5-50.1) % MCV 92.2 (83.0-100.0) fL MCH 29.6 (28.0-33.3) pg MCHC 32.1 (31.6-35.5) g/dL RDW 14.4 (11.5-14.5) % Plt Count 231 (140-400) K/mcL MPV 9.6 (9.4-12.4) fL Immature Gran % 0.5 (0-4) % Seg Neutrophils % 61.9 % Lymphocytes % 23.6 % Monocytes % 10.5 % Eosinophils % 2.9 % Basophils % 0.6 % Neutrophils # 6.7 (1.6-8.9) K/mcL Lymphocytes # 2.5 (0.6-4.6) K/mcL Monocytes # 1.1 (0.0-1.3) K/mcL Eosinophils # 0.3 (0.0-0.6) K/mcL Basophils # 0.1 (0.0-0.2) K/mcL PT 11.6 (9.4-12.1) Seconds INR 1.0 APTT 30.7 (26.0-36.0) Seconds Sodium 140 (136-145) mEq/L Potassium 4.0 (3.5-5.1) mEq/L Chloride 106 (98-107) mEq/L Carbon Dioxide 28 (23-29) mEq/L BUN 31 H (8-23) mg/dL Creatinine 0.94 (0.70-1.30) mg/dL Est GFR ( Amer) > 60 (> 60) Est GFR (Non-Af Amer) > 60 (> 60) BUN/Creatinine Ratio 33 H (6-26) Glucose 78 (70-105) mg/dL Calculated Osmolality 295 (280-300) Calcium 8.7 (8.6-10.3) mg/dL Total Bilirubin 0.2 L (0.3-1.0) mg/dL AST 10 L (13-39) Units/L ALT 8 (7-52) Units/L Alkaline Phosphatase 52 (34-104) Units/L Troponin I < 0.03 (< 0.04) ng/mL Serum Total Protein 6.1 L (6.4-8.9) g/dL Albumin 3.4 L (3.5-5.7) g/dL Globulin 2.7 (2.4-3.5) g/dL Albumin/Globulin Ratio 1.3 (1.1-2.2) - Radiology Data Radiology results reviewed: Yes I reviewed the patient's radiology results. Chest CTA 04/05/18 02:31 IMPRESSION: No evidence of a pulmonary embolus. Right lower lobe mass has not changed significantly in size from 01/29/2017. Central cavitation is new/increased. Adjacent lung disease may represent postradiation change. Lymphangitic spread of tumor not excluded. Clinical correlation is recommended. D/ / Deion Luevano MD / Deion Luevano MD Interpreting Provider: Deion Luevano MD - EKG Data EKG #1 EKG attestation: Yes I reviewed and interpreted this EKG. EKG results narrative: EKG done at 5:16 shows sinus rhythm at a rate of 63 bpm. Normal axis. Intervals within normal limits. No signs of ischemia. Attestation Statement - Attestation Attestation: I examined this patient and my medical decision-making was reviewed with the Resident Physician. I agree with the documented findings, disposition and treatment plan as described except to the extent set forth below. Findings consistent with bleeding lung tumor. He does have symptoms of COPD as well as hemoptysis. This is stable at this time. CT confirms mass with cavitary etiology. We will admit for further management. Patient stable at time of admission.
--- NOTE | 2018-04-05 09:04 | Electrocardiograph Report ---
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
[2018-04-05] MEDS ORDERED: Naloxone 0.4 MG/ML INJ IVP PRN (10:02)
[2018-04-05] MEDS ORDERED: methylPREDNISolone 125 MG/2 ML VIAL IVP STA (10:21)
[2018-04-05] MEDS ORDERED: Ipratropium/Albuterol Neb 3 ML ONE (10:23)
[2018-04-05] MEDS: Ipratropium/Albuterol Neb 3 ML IH SCH ×5 (10:26→23:14)
[2018-04-05] MEDS ORDERED: Furosemide 20 MG/2 ML VIAL IVP STA (10:46)
--- NOTE | 2018-04-05 11:56 | Pulmonology Consult Note ---
Date of Encounter: 04/05/18 Time of Encounter: 11:54 Assessment and Plan (1) Hemoptysis Current Visit: Yes Status: Acute This is submassive hemoptysis he will need close monitoring on telemetry should be stable for a general medical floor from the standpoint with telemetry monitoring. Will proceed with airway examination to see if there is any localized area of bleeding I suspect this is related to acute pneumonia on top of underlying a right lower lobe lesion although all the evidence we have so far as this was a benign process and in fact has not increased in size even based upon this last CT scan although there is a central cavitation. There is evidence of surrounding infiltrate which is is suggestive of an acute infectious process. A bronchoscopy is recommended. The procedure , risks, benefits, complications, and expected outcomes have been reviewed. Benefits of diagnosis, as well as risks to include bleeding, infection, pneumothorax which may require surgical intervention, and in a small population. The patient is aware that sometimes test is nondiagnostic. Discussed with patient and agrees to proceed. I will also obtain records from [facility] for what intervention/diagnosis has been made there Keep her nothing by mouth for now (2) Acute exacerbation of chronic obstructive airways disease Current Visit: No Status: Acute Recommend starting IV methylprednisolone 40 mg twice a day Also continue scheduled bronchodilators I would start duo nebs scheduled every 6 hours with every hour (3) Right lower lobe lung mass Current Visit: No Status: Acute I suspect he would need outpatient PET/CT with the repeat biopsy possibly endobronchial guided fine-needle aspiration of lymphadenopathy coupled with navigational bronchoscopy but will need outside hospital records for further evaluation of this (4) Pneumonia Current Visit: No Status: Acute Send sputum and blood cultures if not obtain urine culture for strep pneumo and legionella Agree with the empiric antimicrobials for community-acquired pneumonia Qualifiers: Pneumonia type: due to unspecified organism Laterality: unspecified laterality Lung location: unspecified part of lung Qualified Code(s): J18.9 - Pneumonia, unspecified organism History of Present Illness Consult date: 04/05/18 Requesting physician: Gurjit Hannah Chief complaint: Hemoptysis History of present illness: This is a 67-year-old gentle a past medical history of anoxic brain injury with some mild neurological impairment but fairly intact cognitive function also has a history of COPD and on supplemental oxygen at night for this. Along with underlying CHF and coronary artery disease. He presented to the emergency department after having coughed up blood yesterday he says he coughed up as much as 2-3 tablespoons of blood but has not coughed up any more blood today. A CTA was performed in the emergency department notable for a right lower lobe cavitary lesion now this lesion is actually been noted for several years dating back at least to 2013 he had a biopsy a year ago at this time which showed some chronic inflammation and the patient tells me actually had another biopsy done in [place] in the interim and no via bronchoscopy by Dr. Virgen he is not clear the results of that however. This has been emergency department his been treated with antibiotics and breathing treatments. His hemodynamically stable and otherwise on no chronic long-term anticoagulation or antiplatelet therapy. He has a long smoking history but quit about 9 years ago he states. No exposure to exotic pets at home. He denies epistaxis or hematemesis nausea vomiting weight loss fevers or chills Past Med Surg Social Fam HX - Past Medical History Medical history: CHF, COPD, coronary artery disease, GERD, hypertension, pulmonary embolus, seizures, other Additional medical history: Agent orange exposure in [place]-lung damage. brain damage and tremors from episode of not breathing and on vent Psychiatric history: anxiety, bipolar - Past Surgical History Surgical History: appendectomy, tracheostomy, other Additional surgical history: tach. PEG tube - Social History Smoking Status: Former smoker Smokeless Tobacco Status: No Alcohol use: none Drug use: none - Family History Father Hx Family Cardiac Disorders: Yes Medications and Allergies Aspirin 81 mg PO DAILY 01/17/16 [History] Atenolol 100 mg PO DAILY 01/17/16 [History] Docusate [Colace] 100 mg PO BID PRN 01/17/16 [History] Furosemide [Lasix] 20 mg PO DAILY 01/17/16 [History] GuaiFENesin/Dextromethorphan [Kro Child Mucus Rlf Cough Liq] 10 ml PO Q6H PRN [History] Guaifenesin 400 mg PO TID 01/17/16 [History] Ipratropium/Albuterol Sulfate [Combivent Respimat Inhal [place]] 1 puff IH QID [History] Ketoconazole Shampoo [Nizoral Shampoo] 1 appl TP AD PRN 01/17/16 [History] Primidone [Mysoline] 100 mg PO BID 01/17/16 [History] Sertraline [Zoloft] 200 mg PO DAILY 01/17/16 [History] amLODIPine [Norvasc] 10 mg PO DAILY 01/17/16 [History] Acetaminophen [Tylenol] 650 mg PO QID PRN 04/12/17 [History] Atorvastatin [Lipitor] 40 mg PO HS 04/12/17 [History] Baclofen [Lioresal] 5 mg PO TID 04/12/17 [History] Budesonide [Pulmicort Flexhaler 180mcg] 2 puff IH BID 04/12/17 [History] Cholecalciferol (D-3) [Vitamin D] 2,000 unit PO BID 04/12/17 [History] Divalproex (24 HR) [Depakote ER (24 HR)] 500 mg PO BID 04/12/17 [History] Ibuprofen [Motrin] 600 mg PO Q8HR PRN 04/12/17 [History] Ipratropium/Albuterol Neb [Duoneb] 3 ml IH Q6H PRN 04/12/17 [History] Lidocaine Patch [Lidoderm 5% patch] 2 each TP DAILY 04/12/17 [History] Lisinopril 5 mg PO DAILY 04/12/17 [History] Selenium Sulfide 1 appl TP Q72H 04/12/17 [History] Sennosides [Senna] 17.2 mg PO HS 04/12/17 [History] clonazePAM [Klonopin] 1 mg PO QID 04/12/17 [History] hydrOXYzine HCl [Hydroxyzine HCl] 50 mg PO HS PRN 04/12/17 [History] raNITIdine HCl [Zantac] 150 mg PO BID 04/12/17 [History] Bisacodyl [Dulcolax] 10 mg RC DAILY PRN supp.rect 04/15/17 [Rx] Haloperidol [Haldol] 5 mg PO Q6H PRN tablet 04/15/17 [Rx] Polyethylene Glycol 3350 [MiraLAX] 17 gm PO DAILY PRN powd.pack 04/15/17 [Rx] Simvastatin [Zocor] 20 mg PO QPM tablet 04/15/17 [Rx] hydroCHLOROthiazide [Hydrochlorothiazide] 12.5 mg PO DAILY tablet 04/15/17 [Rx] levETIRAcetam [Keppra] 500 mg PO BID 04/05/18 [History] 3 Allergy/AdvReac Type Severity Reaction Status Date / Time moxifloxacin Allergy Swelling Verified 01/28/16 17:07 of Lip/Tongue/Throat All Systems: The remainder of the systems were reviewed and are negative Physical Examination Vital Signs: Vital Signs, Last 4 Hours Resp Pulse Ox 04/05/18 10:27 18 99 General appearance: lethargic (But easily arousable) Eyes: nonicteric ENT: oropharynx moist Neck: supple Effort: normal Auscultation: bilateral: wheezes Cardiovascular: regular rate and rhythm Gastrointestinal: normoactive bowel sounds Integumentary: normal Extremities: no cyanosis, no clubbing Musculoskeletal: no deformities normal mental status, non-focal exam, pupils equal and round, other (He does have a noted jerking with any sort of physical movement) mood appropriate Results - Laboratory Findings CBC and BMP: 04/05/18 02:57 04/05/18 02:57 PT/INR, D-dimer PT 11.6 Seconds (9.4-12.1) 04/05/18 02:57 Abnormal lab findings: Abnormal lab results RBC 3.58 M/mcL (4.19-5.50) L 04/05/18 02:57 Hgb 10.6 g/dL (12.9-16.9) L 04/05/18 02:57 Hct 33.0 % (37.5-50.1) L 04/05/18 02:57 BUN 31 mg/dL (8-23) H 04/05/18 02:57 BUN/Creatinine Ratio 33 (6-26) H 04/05/18 02:57 Total Bilirubin 0.2 mg/dL (0.3-1.0) L 04/05/18 02:57 AST 10 Units/L (13-39) L 04/05/18 02:57 Serum Total Protein 6.1 g/dL (6.4-8.9) L 04/05/18 02:57 Albumin 3.4 g/dL (3.5-5.7) L 04/05/18 02:57 - Diagnostic Findings Chest x-ray: report reviewed, image reviewed CT scan - chest: report reviewed, image reviewed - Clinical Findings Intake & Output: Intake & Output 04/04/18 04/05/18 04/05/18 23:59 07:59 15:59 Output Total 0 / 0 Balance 0 / 0 Weight 86.364 kg Consult Discharge Plan - Plan [facility]Primary Care Provider[facility] -
[2018-04-05] MEDS ORDERED: *HR* Midazolam HCl 5 MG/5 ML VIAL IVP ONE ×2 (12:38→16:41)
[2018-04-05] MEDS ORDERED: Tetracaine/Benzocaine/Butamben 200MG/SPRAY (100SPY/BOT) MM ONE (12:38)
[2018-04-05] MEDS ORDERED: Lidocaine Viscous Oral Soln 15 ML SOLUTION MM ONE (12:38)
[2018-04-05] MEDS ORDERED: Albuterol 2.5 MG/3 ML NEBULIZER IH ONE (12:38)
[2018-04-05] MEDS ORDERED: *HR* EPINEPHrine 1 MG/10 ML SYRINGE INTRATRACH PRN (12:38)
[2018-04-05] MEDS ORDERED: *HR* FentaNYL (PF) 100 MCG/2 ML VIAL IVP ONE (12:38)
--- NOTE | 2018-04-05 12:45 | Pre-Sedation Evaluation ---
Pre-sedation evaluation - Pre-sedation checklist Date of procedure: 04/05/18 Procedure: Bronchoscopy Recent Vitals: Last Vital Signs Temp 97.9 F 04/05/18 12:06 Pulse 61 04/05/18 12:06 Resp 13 04/05/18 12:06 BP 168/84 04/05/18 12:06 Pulse Ox 98 04/05/18 12:06 H&P (including ROS) documented in medical record: Yes Previous reaction to sedatives/anesthetics: No Dietary Status: NPO 6 hours prior to procedure Airway Assessment: Patient can open mouth completely, TMJ function normal Dentition: dentures removed Possible difficult airway: Yes If Yes;: Morbid obesity, Enlarged neck circumference, short neck ASA Classification *see protocol: CLASS III-Severe systemic disease Plan of Care: Pt appropriate candidate for procedure/moderate/conscious sedation , Risks/benefits of procedure/sedation discussed w/ patient/family Cardiac Registry (Cardio Only) - Functional Capacity - Clincal Frailty Scale
[2018-04-05] MEDS: cefTRIAXone 1,000 MG in Water for inj. (sterile) 20 ML 10 ML IVP SCH (13:12)
[2018-04-05] MEDS: Azithromycin 500 MG in D5% in Water 250 ML IVPB SCH (13:13)
--- NOTE | 2018-04-05 13:41 | Internal Med History&Physical ---
Date of Encounter: 04/05/18 Time of Encounter: 09:11 Internal Medicine - H&P: HPI Chief complaint: Coughing up blood and shortness of breath Admitted From: Emergency Dept History of present illness: Mr. 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 Patient states that he was doing apparently well over the last several weeks but very recently over the last 2-3 days started coughing up more and more and became short of breath. He also notices blood-tinged sputum which gradually got worse over overnight where he had 2-3 tablespoons of blood being coughed up [id number]. This is what brought him to the ER and he decided to be evaluated. In the ER the patient underwent a CT scan which showed a right lower lobe mass which has been there in the past but now showed cavitation, he also received a basic blood work which showed anemia with hemoglobin around 10. Patient does be that he has had this right lower lobe mass for many years and recent most bronchoscopy showed that it was not malignant. I do not have the report results of this at this point. He was visibly out of breath but was still able to complete his sentences. I could hear him wheezing without stethoscope . He denies any fevers or chills and no sick contacts at this time. His CT scan also showed some evidence of inflammatory changes surrounding the right lung mass. Past Med Surg Social Fam HX - Past Medical History Medical history: CHF, COPD, coronary artery disease, GERD, hypertension, pulmonary embolus, seizures, other Additional medical history: Agent orange exposure in [place]-lung damage. brain damage and tremors from episode of not breathing and on vent Psychiatric history: anxiety, bipolar - Past Surgical History Surgical History: appendectomy, tracheostomy, other Additional surgical history: tach. PEG tube - Social History Smoking Status: Former smoker Smokeless Tobacco Status: No Alcohol use: none Drug use: none - Family History Father Hx Family Cardiac Disorders: Yes Internal Medicine - H&P: Meds Aspirin 81 mg PO DAILY 01/17/16 [History] Atenolol 100 mg PO DAILY 01/17/16 [History] Docusate [Colace] 100 mg PO BID PRN 01/17/16 [History] Furosemide [Lasix] 20 mg PO DAILY 01/17/16 [History] GuaiFENesin/Dextromethorphan [Kro Child Mucus Rlf Cough Liq] 10 ml PO Q6H PRN [History] Guaifenesin 400 mg PO TID 01/17/16 [History] Ipratropium/Albuterol Sulfate [Combivent Respimat Inhal [place]] 1 puff IH QID [History] Ketoconazole Shampoo [Nizoral Shampoo] 1 appl TP AD PRN 01/17/16 [History] Primidone [Mysoline] 100 mg PO BID 01/17/16 [History] Sertraline [Zoloft] 200 mg PO DAILY 01/17/16 [History] amLODIPine [Norvasc] 10 mg PO DAILY 01/17/16 [History] Acetaminophen [Tylenol] 650 mg PO QID PRN 04/12/17 [History] Atorvastatin [Lipitor] 40 mg PO HS 04/12/17 [History] Baclofen [Lioresal] 5 mg PO TID 04/12/17 [History] Budesonide [Pulmicort Flexhaler 180mcg] 2 puff IH BID 04/12/17 [History] Cholecalciferol (D-3) [Vitamin D] 2,000 unit PO BID 04/12/17 [History] Divalproex (24 HR) [Depakote ER (24 HR)] 500 mg PO BID 04/12/17 [History] Ibuprofen [Motrin] 600 mg PO Q8HR PRN 04/12/17 [History] Ipratropium/Albuterol Neb [Duoneb] 3 ml IH Q6H PRN 04/12/17 [History] Lidocaine Patch [Lidoderm 5% patch] 2 each TP DAILY 04/12/17 [History] Lisinopril 5 mg PO DAILY 04/12/17 [History] Selenium Sulfide 1 appl TP Q72H 04/12/17 [History] Sennosides [Senna] 17.2 mg PO HS 04/12/17 [History] clonazePAM [Klonopin] 1 mg PO QID 04/12/17 [History] hydrOXYzine HCl [Hydroxyzine HCl] 50 mg PO HS PRN 04/12/17 [History] raNITIdine HCl [Zantac] 150 mg PO BID 04/12/17 [History] Bisacodyl [Dulcolax] 10 mg RC DAILY PRN supp.rect 04/15/17 [Rx] Haloperidol [Haldol] 5 mg PO Q6H PRN tablet 04/15/17 [Rx] Polyethylene Glycol 3350 [MiraLAX] 17 gm PO DAILY PRN powd.pack 04/15/17 [Rx] Simvastatin [Zocor] 20 mg PO QPM tablet 04/15/17 [Rx] hydroCHLOROthiazide [Hydrochlorothiazide] 12.5 mg PO DAILY tablet 04/15/17 [Rx] levETIRAcetam [Keppra] 500 mg PO BID 04/05/18 [History] 3 Allergy/AdvReac Type Severity Reaction Status Date / Time moxifloxacin Allergy Swelling Verified 01/28/16 17:07 of Lip/Tongue/Throat All Systems PM: A 10-system review of systems was performed and is negative for pertinent findings except as documented above in the HPI. - Constitutional Vitals: Temp Pulse Resp BP Pulse Ox 97.9 F 61 13 168/84 98 04/05/18 12:06 04/05/18 12:06 04/05/18 12:06 04/05/18 12:06 04/05/18 12:06 Exam: GENERAL: Alert, moderate distress, cooperative EYES: PERRLA, EOMI EARS: External ears normal, canals clear OROPHARYNX: Lips, mucosa, and tongue normal. Teeth and gums normal. Oropharynx normal. NECK: No jugulovenous distention, No carotid bruits, Carotid pulse normal contour, Supple LUNGS: Significant wheezing heard throughout both lung sanchez. CARDIAC: Normal S1 and S2; no rubs, murmurs, or gallops ABDOMEN: Abdomen soft, non-tender, BS normal, No masses or organomegaly EXTREMITIES: Extremities normal, no deformities, edema, clubbing or skin discoloration. Good capillary refill., No ulcers NEURO: Gait not tested. Significant weakness in bilateral upper and lower extremities power 3/5 diffusely PULSES: 2+ radial, 2+ carotid Rest of the exam is non contributory Internal Med - H&P Results - Labs CBC & Chem 7: 04/05/18 02:57 04/05/18 02:57 Labs: Cardiac Enzymes 04/05/18 Range/Units 10:41 Troponin I < 0.03 (< 0.04) ng/mL - Assessment and plan (1) Hemoptysis Current Visit: Yes Status: Acute Assessment and plan: Patient might benefit from a bronchoscopy. I have discussed this with pulmonary medicine who will be done to evaluate the patient very shortly. Patient also has anemia. His hemoglobin is 10 to begin with I will order serial H&H every 6-8 hours for at least 3 occurrences to monitor the trend. We may need a type and cross and keep a couple of minutes ready for transfusion should the need arise. (2) Acute exacerbation of chronic obstructive airways disease Current Visit: No Status: Acute Assessment and plan: Consider steroids and bronchodilators. I am already given him a 125 bolus of methylprednisone and will continue breathing treatments as needed cause the patient is significantly wheezy. I will consult pulmonary medicine for management of further care. Patient is requiring 2-4 L of oxygen but is not very different from his home requirement but is significantly short of breath. I will also initiate antibiotics for concomitant treatment of community-acquired pneumonia (3) DVT prophylaxis Current Visit: No Status: Acute Assessment and plan: EPC D (4) Pneumonia Current Visit: No Status: Acute Assessment and plan: Concomitant pneumonia in addition to and surrounding the right lung mass. I will treat with azithromycin and Rocephin as of community acquired pneumonia. Obtain sputum cultures and blood cultures and titrate antibiotics accordingly Qualifiers: Pneumonia type: due to unspecified organism Laterality: unspecified laterality Lung location: unspecified part of lung Qualified Code(s): J18.9 - Pneumonia, unspecified organism (5) Right lower lobe lung mass Current Visit: Yes Status: Acute Assessment and plan: Consider bronchoscopy. Pulmonary consult to follow - Time Spent With Patient Total time spent is greater than 50% in coordination of care (as documented) at patient's floor/unit and/or counseling patient: Greater than 35 minutes
[2018-04-05] MEDS ORDERED: Bisacodyl 10 MG RECTAL SUPPOSITORY RC PRN (13:47)
[2018-04-05] MEDS ORDERED: hydrOXYzine pamoate 25 MG CAPSULE PO PRN (13:47)
[2018-04-05] MEDS ORDERED: Acetaminophen 325 MG TABLET PO PRN (13:47)
[2018-04-05] MEDS ORDERED: *HR* FentaNYL (PF) 100 MCG/2 ML VIAL ONE (16:41)
[2018-04-05] MEDS ORDERED: Lidocaine Viscous Oral Soln 15 ML SOLUTION ONE (16:42)
[2018-04-05] MEDS ORDERED: Tetracaine/Benzocaine/Butamben 200MG/SPRAY (100SPY/BOT) ONE (16:42)
[2018-04-05] MEDS: SELENIUM SULFIDE APPL TP SCH (18:24)
[2018-04-05] MEDS: GuaiFENesin Liq 200 MG/10 ML UDC PO SCH ×2 (18:24→20:54)
[2018-04-05] MEDS: Baclofen 10 MG TABLET PO SCH ×2 (18:24→20:55)
[2018-04-05] MEDS: Famotidine 20 MG TABLET PO SCH (18:33)
[2018-04-05] MEDS: clonazePAM 1 MG TABLET PO SCH ×2 (18:34→20:55)
[2018-04-05 20:10] LABS: Hematocrit 41.2 % (37.5-50.1); Mean Corpuscular HGB Conc 31.8 g/dL (31.6-35.5); Mean Corpuscular Hemoglobin 29.6 pg (28.0-33.3); Mean Corpuscular Volume 93.2 fL (83.0-100.0); Red Blood Count 4.42 M/mcL (4.19-5.50); Red Cell Distribution Width 14.4 % (11.5-14.5)
[2018-04-05 20:11] LABS: Basophils % 0.3 %; Immature Granulocytes % 0.4 % (0-4); Mean Platelet Volume 9.9 fL (9.4-12.4); Monocytes # 0.2 K/mcL (0.0-1.3); Monocytes % 2.3 %; Neutrophils # 7.9 K/mcL (1.6-8.9); Platelet Count 253 K/mcL (140-400)
[2018-04-05 20:16] LABS: Adenovirus Not Detected (Not Detect); Bordetella Pertussis Not Detected (Not Detect); Chlamydophila pneumoniae Not Detected (Not Detect); Coronavirus 229E Not Detected (Not Detect); Coronavirus HKU1 Not Detected (Not Detect); Coronavirus NL63 Not Detected (Not Detect); Coronavirus OC43 Not Detected (Not Detect); Human Metapneumovirus Not Detected (Not Detect); Human Rhinovirus/Enterovirus Not Detected (Not Detect); Influenza A Subtype 2009 H1 Not Detected (Not Detect); Influenza A Untypeable Not Detected (Not Detect); Influenza B Not Detected (Not Detect); Mycoplasma pneumoniae Not Detected (Not Detect); Parainfluenza Virus 1 Not Detected (Not Detect); Parainfluenza Virus 2 Not Detected (Not Detect); Parainfluenza Virus 3 Not Detected (Not Detect); Parainfluenza Virus 4 Not Detected (Not Detect); Respiratory Syncytial Virus Not Detected (Not Detect)
[2018-04-05 20:26] LABS: Hemoglobin 13.1 g/dL (12.9-16.9)
[2018-04-05] MEDS: MethylPREDNISolone 40 MG/ML VIAL IVP SCH (20:54)
[2018-04-05] MEDS: Sennosides 8.6 MG TABLET PO SCH (20:55)
[2018-04-05] MEDS: Divalproex (12 HR) 500 MG TABLET PO SCH (20:56)
[2018-04-05] MEDS: levETIRAcetam 250 MG TABLET PO SCH (20:56)
[2018-04-05] MEDS: Primidone 50 MG TABLET PO SCH (20:56)
[2018-04-06] MEDS: Ipratropium/Albuterol Neb 3 ML IH SCH ×6 (03:41→22:49)
[2018-04-06 03:52] LABS: Basophils % 0.2 %; Hematocrit 34.1 % (37.5-50.1); Hemoglobin 11.1 g/dL (12.9-16.9); Immature Granulocytes % 1.1 % (0-4); Immature Platelets 2.1 % (1.1-6.1); Lymphocytes # 0.9 K/mcL (0.6-4.6); Lymphocytes % 6.7 %; Mean Corpuscular HGB Conc 32.6 g/dL (31.6-35.5); Mean Corpuscular Hemoglobin 29.4 pg (28.0-33.3); Mean Corpuscular Volume 90.5 fL (83.0-100.0); Mean Platelet Volume 9.8 fL (9.4-12.4); Monocytes # 0.9 K/mcL (0.0-1.3); Monocytes % 7.2 %; Platelet Count 236 K/mcL (140-400); Red Blood Count 3.77 M/mcL (4.19-5.50); Red Cell Distribution Width 14.4 % (11.5-14.5); Segmented Neutrophils % 84.8 %
[2018-04-06 04:11] LABS: BUN/Creatinine Ratio 38 (6-26); Blood Urea Nitrogen 33 mg/dL (8-23); Calcium 8.8 mg/dL (8.6-10.3); Carbon Dioxide 30 mEq/L (23-29); Chloride 104 mEq/L (98-107); Glucose 104 mg/dL (70-105); Osmolality,Calculated 298 (280-300); Potassium 4.2 mEq/L (3.5-5.1); Sodium 140 mEq/L (136-145); eGFR For Non-African Americans > 60 (> 60)
[2018-04-06] MEDS: MethylPREDNISolone 40 MG/ML VIAL IVP SCH ×2 (06:38→17:01)
--- NOTE | 2018-04-06 09:38 | Pulmonology Progress Note ---
Date of Encounter: 04/06/18 Time of Encounter: 09:37 Assessment and Plan (1) Hemoptysis Current Visit: Yes Status: Acute This is resolving is likely inflammatory reaction to pneumonia Bronchoscopy yesterday without evidence of bleeding (2) Pneumonia Current Visit: No Status: Acute Recommend continuation of treatment for community-acquired pneumonia. He will need 7-10 days of treatment based upon clinical course Cultures thus far pending I suspect that the acute jump in his white count likely reflects use of steroids he remains afebrile Qualifiers: Pneumonia type: due to unspecified organism Laterality: unspecified laterality Lung location: unspecified part of lung Qualified Code(s): J18.9 - Pneumonia, unspecified organism (3) Acute exacerbation of chronic obstructive airways disease Current Visit: No Status: Acute Start enteral prednisone 40 mg and plan to taper over 2 weeks Schedule bronchodilators (DuoNeb's every) 6 hours with every hour albuterol as needed Oxygen to keep saturation greater than 88% currently excellent saturation on room air (4) Right lower lobe lung mass Current Visit: Yes Status: Acute Patient has had at least to biopsy this in the past and apparently this is not malignant he does have some adenopathy which may be in the acute setting related to this infectious process his daughter was spoken with on the phone yesterday as plan bring the records from [facility] for our review but likely patient will just need outpatient follow-up with this either here or in [place] which may include a PET scan and possibly repeat bronchoscopy Subjective Principal diagnosis: Hemoptysis Interval history: Overnight Mr. navarro was done very well. No further episodes of hemoptysis he says his breathing is better he still little lethargic today. He underwent bronchoscopy yesterday without untoward effect. No fevers overnight Objective PUL Vital signs: Last Vital Signs Temp 98.6 F 04/06/18 06:34 Pulse 74 04/06/18 06:34 Resp 16 04/06/18 06:34 BP 148/77 04/06/18 06:34 Pulse Ox 93 04/06/18 06:34 General appearance: no acute distress Eyes: nonicteric ENT: oropharynx moist Effort: normal Auscultation: right: diminished breath sounds, rhonchi Cardiovascular: regular rate and rhythm Gastrointestinal: normoactive bowel sounds Integumentary: normal Extremities: no cyanosis, no edema Musculoskeletal: no deformities normal mental status, non-focal exam mood appropriate Results - Laboratory Findings CBC and BMP: 04/06/18 03:16 04/06/18 03:16 PT/INR, D-dimer PT 11.6 Seconds (9.4-12.1) 04/05/18 02:57 Abnormal lab findings: Abnormal lab results WBC 12.9 K/mcL (4.3-11.1) H 04/06/18 03:16 RBC 3.77 M/mcL (4.19-5.50) L 04/06/18 03:16 Hgb 11.1 g/dL (12.9-16.9) L D 04/06/18 03:16 Hct 34.1 % (37.5-50.1) L 04/06/18 03:16 Neutrophils # 11.0 K/mcL (1.6-8.9) H 04/06/18 03:16 Carbon Dioxide 30 mEq/L (23-29) H 04/06/18 03:16 BUN 33 mg/dL (8-23) H 04/06/18 03:16 BUN/Creatinine Ratio 38 (6-26) H 04/06/18 03:16 Total Bilirubin 0.2 mg/dL (0.3-1.0) L 04/05/18 02:57 AST 10 Units/L (13-39) L 04/05/18 02:57 Serum Total Protein 6.1 g/dL (6.4-8.9) L 04/05/18 02:57 Albumin 3.4 g/dL (3.5-5.7) L 04/05/18 02:57 - Microbiology Findings Microbiology Findings: Microbiology, Last 48 Hours 04/05/18 10:24 Sputum Culture - Final Sputum - Clinical Findings Intake & Output: Intake & Output 04/05/18 04/06/18 04/06/18 23:59 07:59 15:59 Intake Total 240 / 240 Output Total 150 / 150 Balance 240 / 240 -150 / -150 Consult Discharge Plan - Plan [facility]errals: [facility] [Primary Care Provider] -
[2018-04-06] MEDS: Ringers Solution, Lactated 1,000 ML IVC SCH (10:33)
[2018-04-06] MEDS: Famotidine 20 MG TABLET PO SCH (10:34)
[2018-04-06] MEDS: Divalproex (12 HR) 500 MG TABLET PO SCH ×2 (10:34→20:56)
[2018-04-06] MEDS: hydroCHLOROthiazide 25 MG TABLET PO SCH (10:35)
[2018-04-06] MEDS: clonazePAM 0.5 MG TABLET PO SCH ×5 (10:35→20:57)
[2018-04-06] MEDS: levETIRAcetam 250 MG TABLET PO SCH ×2 (10:35→20:56)
[2018-04-06] MEDS: Primidone 50 MG TABLET PO SCH ×2 (10:36→20:56)
[2018-04-06] MEDS: amLODIPine 5 MG TABLET PO SCH (10:36)
[2018-04-06] MEDS: Baclofen 10 MG TABLET PO SCH ×3 (10:36→20:56)
[2018-04-06] MEDS: cefTRIAXone 1,000 MG in Water for inj. (sterile) 20 ML 10 ML IVP SCH (10:37)
[2018-04-06] MEDS: Azithromycin 500 MG in D5% in Water 250 ML IVPB SCH (10:38)
[2018-04-06] MEDS: Furosemide 20 MG TABLET PO SCH (11:03)
[2018-04-06] MEDS: GuaiFENesin Liq 200 MG/10 ML UDC PO SCH ×3 (11:03→20:56)
[2018-04-06 11:15] LABS: Appearance of Body Fluid Hazy (Clear); Volume of Body Fluid 18 mL
--- NOTE | 2018-04-06 16:07 | Internal Med Progress Note ---
<Nikolai Lobato - Last Filed: 04/06/18 17:22> Hospitalist Progress Note - Encounter Date of Encounter: 04/06/18 Time of Encounter: 09:30 - Subjective Interval History: Mr. navarro is a 67-year-old male with a past medical history of anoxic brain injury, compensated diastolic CHF , COPD (on home oxygen 2 L) was admitted to the floor because of complains of coughing up red colored mucus. Patient endorses that he has been coughing up 2-3 tablespoons of blood and sputum which has been progressively getting worse. Initial workup in the ER showed an old right lower lobe lung mass unchanged from the previous findings in the CT scan along with cavitation. Most recent bronchoscopy at [facility] showed that it was not malignant. He had a bronchoscopy here [facility] yesterday which showed traceobronchomalacia and pneumonia. His BAL cultures are pending. No source of bleeding was found during the procedure. Patient was A&O 3 when i met him and currently satting at 98% on 2 L of home oxygen. - Exam Vitals: Temp Pulse Resp BP Pulse Ox 98.3 F 75 16 131/68 98 04/06/18 13:15 04/06/18 13:15 04/06/18 15:43 04/06/18 13:15 04/06/18 15:43 Exam: GENERAL: Alert, moderate distress, cooperative EYES: PERRLA, EOMI EARS: External ears normal, canals clear OROPHARYNX: Lips, mucosa, and tongue normal. Teeth and gums normal. Oropharynx normal. NECK: No jugulovenous distention, No carotid bruits, Carotid pulse normal contour, Supple LUNGS: diminished breath sounds, rhonchi CARDIAC: Normal S1 and S2; no rubs, murmurs, or gallops ABDOMEN: Abdomen soft, non-tender, BS normal, No masses or organomegaly EXTREMITIES: Extremities normal, no deformities, edema, clubbing or skin discoloration. Good capillary refill., No ulcers NEURO: Gait not tested. Significant weakness in bilateral upper and lower extremities power 3/5 diffusely PULSES: 2+ radial, 2+ carotid - Assessment and Plan (1) Hemoptysis Current Visit: Yes Status: Acute Assessment and Plan: - Likely due to multiple episodes of pneumonia. Patient was also found to have right lower lobe lung mass. No evidence for any mitral valve stenosis. No History of malignancy. -Bronchoscopy yesterday revealed no source of bleeding. -Patient currently not endorsing any episodes of hemoptysis. H&H stable. -Continue to monitor. (2) Pneumonia Current Visit: No Status: Acute Assessment and Plan: - Patient has had multiple episodes of pneumonia. He was discharged from [facility] on 10/30 2017 after treatment for community acquired pneumonia. -His blood and sputum cultures are pending -on physical exam patient had bilateral wheezing and rhonchi. -Currently on Azithromycin 500mg and Rocephin 1000mg. (3) Right lower lobe lung mass Current Visit: Yes Status: Acute Assessment and Plan: -Has a known right lower lobe mass which is unchanged from his last imaging. - Per pulmonology, patient will need an outpatient follow-up which may include a PET scan and a possible repeat bronchoscopy DVT Prophylaxis: EPCD - Time Spent with Patient Total time spent is greater than 50% in coordination of care (as documented) at patient's floor/unit and/or counseling patient: Internal Medicine: Result - Labs CBC & Chem 7: 04/06/18 03:16 04/06/18 03:16 Labs: Short CBC 04/05/18 04/06/18 Range/Units 19:53 03:16 WBC 9.2 12.9 H (4.3-11.1) K/mcL Hgb 13.1 D 11.1 L D (12.9-16.9) g/dL Hct 41.2 34.1 L (37.5-50.1) % Plt Count 253 236 (140-400) K/mcL Neutrophils # 7.9 11.0 H (1.6-8.9) K/mcL BMP 04/06/18 03:16 Sodium 140 Potassium 4.2 Chloride 104 Carbon Dioxide 30 H BUN 33 H Creatinine 0.87 Glucose 104 Calcium 8.8 Cardiac Enzymes 04/05/18 04/05/18 Range/Units 16:30 22:36 Troponin I < 0.03 < 0.03 (< 0.04) ng/mL - ABG Interpretation ABG results: PT/INR, D-dimer PT 11.6 Seconds (9.4-12.1) 04/05/18 02:57 Consult Discharge Plan - Plan [facility]errals: [facility] [Primary Care Provider] - <Ciro Villegas - Last Filed: 04/06/18 18:56> Hospitalist Progress Note - Encounter Date of Encounter: 04/06/18 - Exam Vitals: Temp Pulse Resp BP Pulse Ox 98.5 F 84 16 164/77 90 04/06/18 18:41 04/06/18 18:41 04/06/18 18:41 04/06/18 18:41 04/06/18 18:41 - Assessment and Plan (1) Acute exacerbation of chronic obstructive airways disease Current Visit: No Status: Acute (2) DVT prophylaxis Current Visit: No Status: Acute (3) Right lower lobe lung mass Current Visit: Yes Status: Acute (4) Pneumonia Current Visit: No Status: Acute (5) Hemoptysis Current Visit: Yes Status: Acute (6) Anoxic brain injury Current Visit: No Status: Chronic (7) HTN (hypertension) Current Visit: No Status: Chronic (8) Chronic respiratory failure Current Visit: No Status: Chronic (9) CAD (coronary artery disease) Current Visit: No Status: Chronic - Time Spent with Patient Total time spent is greater than 50% in coordination of care (as documented) at patient's floor/unit and/or counseling patient: Internal Medicine: Result - Labs CBC & Chem 7: 04/06/18 03:16 04/06/18 03:16 - ABG Interpretation ABG results: PT/INR, D-dimer PT 11.6 Seconds (9.4-12.1) 04/05/18 02:57 - Attending Attestation I examined this patient and my medical decision-making was reviewed with the Resident Physician on 04/06/18. I agree with the documented findings, disposition and treatment plan as described except to the extent set forth below. Mr Navarro is currently admitted for hemoptysis and pneumonia. He remains moderate to high risk due to potential for worsening clinical status. Mr Navarro is feeling somewhat better. No further hemoptysis. No fever or chills. Still with some cough. No GI issues. Exam alert Comfortable in bed Mucus membranes dry Heart distant No wheeze abd soft No edema I/P 1. PNA 2. Hemoptysis Further diagnoses and plan as above. <Jose Manuel Lobatobh - Last Filed: 04/06/18 17:22> (2) Pneumonia Qualifiers: Pneumonia type: due to unspecified organism Laterality: unspecified laterality Lung location: unspecified part of lung Qualified Code(s): J18.9 - Pneumonia, unspecified organism <Ciro Villegas - Last Filed: 04/06/18 18:56> (4) Pneumonia Qualifiers: Pneumonia type: due to unspecified organism Laterality: unspecified laterality Lung location: unspecified part of lung Qualified Code(s): J18.9 - Pneumonia, unspecified organism (7) HTN (hypertension) Qualifiers: Hypertension type: essential hypertension Qualified Code(s): I10 - Essential (primary) hypertension (8) Chronic respiratory failure Qualifiers: Respiratory failure complication: hypoxia Qualified Code(s): J96.11 - Chronic respiratory failure with hypoxia (9) CAD (coronary artery disease) Qualifiers: Coronary Disease-Associated Artery/Lesion type: [place] artery [place] vs. transplanted heart: [place] heart Associated angina: without angina Qualified Code(s): I25.10 - Atherosclerotic heart disease of [place] coronary artery without angina pectoris
[2018-04-06] MEDS: Sennosides 8.6 MG TABLET PO SCH (20:57)
[2018-04-06] MEDS: traMADol 50 MG TABLET PO PRN (21:36)
[2018-04-07] MEDS: (Combivent Respimat InH) IH SCH ×3 (00:50→15:15)
[2018-04-07] MEDS: Ipratropium/Albuterol Neb 3 ML IH SCH ×6 (03:36→23:31)
[2018-04-07] MEDS: MethylPREDNISolone 40 MG/ML VIAL IVP SCH ×2 (05:54→15:38)
[2018-04-07 06:26] LABS: Basophils # 0.1 K/mcL (0.0-0.2); Basophils % 0.6 %; Eosinophils # 0.1 K/mcL (0.0-0.6); Eosinophils % 0.4 %; Hematocrit 34.9 % (37.5-50.1); Immature Granulocytes % 2.3 % (0-4); Lymphocytes % 20.1 %; Mean Corpuscular HGB Conc 32.4 g/dL (31.6-35.5); Mean Corpuscular Hemoglobin 29.5 pg (28.0-33.3); Mean Corpuscular Volume 91.1 fL (83.0-100.0); Mean Platelet Volume 9.7 fL (9.4-12.4); Monocytes # 2.2 K/mcL (0.0-1.3); Monocytes % 14.8 %; Neutrophils # 9.3 K/mcL (1.6-8.9); Platelet Count 242 K/mcL (140-400); Red Blood Count 3.83 M/mcL (4.19-5.50); Red Cell Distribution Width 14.8 % (11.5-14.5); Segmented Neutrophils % 61.8 %
[2018-04-07 06:31] LABS: Hemoglobin 11.3 g/dL (12.9-16.9)
[2018-04-07 06:47] LABS: BUN/Creatinine Ratio 34 (6-26); Blood Urea Nitrogen 29 mg/dL (8-23); Carbon Dioxide 28 mEq/L (23-29); Chloride 102 mEq/L (98-107); Glucose 146 mg/dL (70-105); Osmolality,Calculated 294 (280-300); Sodium 138 mEq/L (136-145); eGFR For Non-African Americans > 60 (> 60)
[2018-04-07] MEDS: Ringers Solution, Lactated 1,000 ML IVC SCH (07:10)
[2018-04-07] MEDS: clonazePAM 0.5 MG TABLET PO SCH ×4 (07:55→22:32)
[2018-04-07] MEDS: Primidone 50 MG TABLET PO SCH ×2 (07:55→22:33)
[2018-04-07] MEDS: Famotidine 20 MG TABLET PO SCH (07:55)
[2018-04-07] MEDS: Baclofen 10 MG TABLET PO SCH ×3 (07:55→22:32)
[2018-04-07] MEDS: amLODIPine 5 MG TABLET PO SCH (07:55)
[2018-04-07] MEDS: Furosemide 20 MG TABLET PO SCH (07:56)
[2018-04-07] MEDS: Divalproex (12 HR) 500 MG TABLET PO SCH ×2 (07:57→22:32)
[2018-04-07] MEDS: hydroCHLOROthiazide 25 MG TABLET PO SCH (07:57)
[2018-04-07] MEDS: levETIRAcetam 250 MG TABLET PO SCH ×2 (07:57→22:32)
[2018-04-07] MEDS: GuaiFENesin Liq 200 MG/10 ML UDC PO SCH ×3 (07:58→22:39)
[2018-04-07] MEDS: cefTRIAXone 1,000 MG in Water for inj. (sterile) 20 ML 10 ML IVP SCH (11:48)
[2018-04-07] MEDS: Azithromycin 500 MG in D5% in Water 250 ML IVPB SCH (11:49)
--- NOTE | 2018-04-07 11:56 | Pulmonology Progress Note ---
Date of Encounter: 04/07/18 Time of Encounter: 11:56 Assessment and Plan (1) Pneumonia Current Visit: No Status: Acute Recommend continuation of treatment for community-acquired pneumonia. He will need 7-10 days of treatment based upon clinical course Cultures thus far pending looks like at the very least he has mixed amy pending final speciation I suspect that the acute jump in his white count likely reflects use of steroids he remains afebrile Qualifiers: Pneumonia type: due to unspecified organism Laterality: unspecified laterality Lung location: unspecified part of lung Qualified Code(s): J18.9 - Pneumonia, unspecified organism (2) Acute exacerbation of chronic obstructive airways disease Current Visit: No Status: Acute Start enteral prednisone 40 mg and plan to taper over 2 weeks Schedule bronchodilators (DuoNeb's every) 6 hours with every hour albuterol as needed Oxygen to keep saturation greater than 88% currently excellent saturation on room air (3) Right lower lobe lung mass Current Visit: Yes Status: Acute Apparently the medical records from [facility] were sent yesterday per the station help desk coordinator however of they are not present in the patient's record at this time urgent re-request is been put in. Again I believe this is an outpatient follow-up and I asked him if he wanted to follow up in [place] her here and he stated here so please schedule an [facility] in 2-4 weeks and we can follow-up this lesion Please call with any questions at this point pulmonary will sign off thank you for the consultation (4) Hemoptysis Current Visit: Yes Status: Acute This is resolved its likely secondary to pneumonia he does have a high risk lesion that is and biopsied before that may end up being a primary lung malignancy. Subjective Principal diagnosis: Hemoptysis Interval history: Overnight in no acute events. He states he is feeling better. No further episodes of hemoptysis he remains afebrile Objective PUL Vital signs: Last Vital Signs Temp 98.6 F 04/07/18 11:40 Pulse 84 04/07/18 11:40 Resp 16 04/07/18 11:40 BP 155/74 04/07/18 11:40 Pulse Ox 91 04/07/18 11:40 General appearance: no acute distress Eyes: nonicteric ENT: oropharynx moist Effort: normal Auscultation: right: rhonchi, bilateral: rales Cardiovascular: regular rate and rhythm Gastrointestinal: normoactive bowel sounds Integumentary: normal Musculoskeletal: no deformities normal mental status mood appropriate Results - Laboratory Findings CBC and BMP: 04/07/18 06:13 04/07/18 06:13 PT/INR, D-dimer PT 11.6 Seconds (9.4-12.1) 04/05/18 02:57 Abnormal lab findings: Abnormal lab results WBC 15.0 K/mcL (4.3-11.1) H 04/07/18 06:13 RBC 3.83 M/mcL (4.19-5.50) L 04/07/18 06:13 Hgb 11.3 g/dL (12.9-16.9) L 04/07/18 06:13 Hct 34.9 % (37.5-50.1) L 04/07/18 06:13 RDW 14.8 % (11.5-14.5) H 04/07/18 06:13 Neutrophils # 9.3 K/mcL (1.6-8.9) H 04/07/18 06:13 Monocytes # 2.2 K/mcL (0.0-1.3) H 04/07/18 06:13 BUN 29 mg/dL (8-23) H 04/07/18 06:13 BUN/Creatinine Ratio 34 (6-26) H 04/07/18 06:13 Glucose 146 mg/dL (70-105) H 04/07/18 06:13 Total Bilirubin 0.2 mg/dL (0.3-1.0) L 04/05/18 02:57 AST 10 Units/L (13-39) L 04/05/18 02:57 Serum Total Protein 6.1 g/dL (6.4-8.9) L 04/05/18 02:57 Albumin 3.4 g/dL (3.5-5.7) L 04/05/18 02:57 Fluid Appearance Hazy (Clear) A 04/05/18 06:00 - Clinical Findings Intake & Output: Intake & Output 04/06/18 04/07/18 04/07/18 23:59 07:59 15:59 Intake Total 360 / 360 Output Total 150 / 150 100 / 100 450 / 450 Balance -150 / -150 -100 / -100 -90 / -90 Weight 88.5 kg Consult Discharge Plan - Plan [facility]errals: [facility] [Primary Care Provider] -
--- NOTE | 2018-04-07 14:36 | Internal Med Progress Note ---
<Ciro Villegas - Last Filed: 04/07/18 16:13> Hospitalist Progress Note - Encounter Date of Encounter: 04/07/18 - Exam Vitals: Temp Pulse Resp BP Pulse Ox 99.1 F 82 16 146/77 91 04/07/18 15:45 04/07/18 15:45 04/07/18 15:45 04/07/18 15:45 04/07/18 15:45 - Assessment and Plan (1) Acute exacerbation of chronic obstructive airways disease Current Visit: No Status: Acute (2) DVT prophylaxis Current Visit: No Status: Acute (3) Right lower lobe lung mass Current Visit: Yes Status: Acute (4) Pneumonia Current Visit: No Status: Suspected (5) Hemoptysis Current Visit: Yes Status: Resolved (6) Anoxic brain injury Current Visit: No Status: Chronic (7) HTN (hypertension) Current Visit: No Status: Chronic (8) Chronic respiratory failure Current Visit: No Status: Chronic (9) CAD (coronary artery disease) Current Visit: No Status: Chronic - Time Spent with Patient Total time spent is greater than 50% in coordination of care (as documented) at patient's floor/unit and/or counseling patient: Internal Medicine: Result - Labs CBC & Chem 7: 04/07/18 06:13 04/07/18 06:13 Labs: Short CBC 04/07/18 Range/Units 06:13 WBC 15.0 H (4.3-11.1) K/mcL Hgb 11.3 L (12.9-16.9) g/dL Hct 34.9 L (37.5-50.1) % Plt Count 242 (140-400) K/mcL Neutrophils # 9.3 H (1.6-8.9) K/mcL BMP 04/07/18 06:13 Sodium 138 Potassium 4.0 Chloride 102 Carbon Dioxide 28 BUN 29 H Creatinine 0.85 Glucose 146 H Calcium 9.0 - ABG Interpretation ABG results: PT/INR, D-dimer PT 11.6 Seconds (9.4-12.1) 04/05/18 02:57 Consult Discharge Plan - Plan [facility] Provider[facility] - - Attending Attestation I examined this patient and my medical decision-making was reviewed with the Resident Physician on 04/07/18. I agree with the documented findings, disposition and treatment plan as described except to the extent set forth below. Mr Navarro is currently admitted for hemoptysis and pneumonia. He remains moderate to high risk due to potential for worsening clinical status. Mr Navarro is feeling very tired. He was up last night watching TV. No fever or chills. Still with cough and congestion. No further hemoptysis. No GI issues. Exam alert comfortable at rest Mucus membranes dry Heart distant Scattered rhonchi Abd soft No edema I/P 1. Pneumonia 2. Hemoptysis Further diagnoses and plan as above. <Nikolai Lobato - Last Filed: 04/07/18 16:47> Hospitalist Progress Note - Encounter Date of Encounter: 04/07/18 Time of Encounter: 10:00 - Subjective Interval History: 04/07 Mr navarro has had no acute events overnight. Endorses no new episodes of hemoptysis. H&H has been stable this far. He was a little tired this morning when I met him. It was attributed to his being awake for most of the time at night watching TV. He continues to be on day 3 of Zithromax 500 mg and Rocephin 1000 milligrams for his community-acquired pneumonia. He continues to be on DuoNeb's every 4 hours for acute exacerbation of COPD. 04/06 Mr. navarro is a 67-year-old male with a past medical history of anoxic brain injury, compensated diastolic CHF , COPD (on home oxygen 2 L) was admitted to the floor because of complains of coughing up red colored mucus. Patient endorses that he has been coughing up 2-3 tablespoons of blood and sputum which has been progressively getting worse. Initial workup in the ER showed an old right lower lobe lung mass unchanged from the previous findings in the CT scan along with cavitation. Most recent bronchoscopy at [facility] showed that it was not malignant. He had a bronchoscopy here [facility] yesterday which showed traceobronchomalacia and pneumonia. His BAL cultures are pending. No source of bleeding was found during the procedure. Patient was A&O 3 when i met him and currently satting at 98% on 2 L of home oxygen. - Exam Vitals: Temp Pulse Resp BP Pulse Ox 98.6 F 84 16 155/74 91 04/07/18 11:40 04/07/18 11:40 04/07/18 11:40 04/07/18 11:40 04/07/18 11:40 Exam: GENERAL: Alert, moderate distress, cooperative EYES: PERRLA, EOMI EARS: External ears normal, canals clear OROPHARYNX: Lips, mucosa, and tongue normal. Teeth and gums normal. Oropharynx normal. NECK: No jugulovenous distention, No carotid bruits, Carotid pulse normal contour, Supple LUNGS: diminished breath sounds, rhonchi CARDIAC: Normal S1 and S2; no rubs, murmurs, or gallops ABDOMEN: Abdomen soft, non-tender, BS normal, No masses or organomegaly EXTREMITIES: Extremities normal, no deformities, edema, clubbing or skin discoloration. Good capillary refill., No ulcers NEURO: Gait not tested. Significant weakness in bilateral upper and lower extremities power 3/5 diffusely PULSES: 2+ radial, 2+ carotid - Assessment and Plan (1) Acute exacerbation of chronic obstructive airways disease Current Visit: No Status: Acute Assessment and Plan: -Patient has a history of COPD. Heavy smoker but quit 9 years ago. -Currently on methylprednisone 40 mg, transition to PO prednisone tomorrow and taper for the next 2 weeks. Duonebs q4h - Currently satting in room air 91%. use oxygen is need be to keep sPO2 > 88%. (2) Pneumonia Current Visit: No Status: Suspected Assessment and Plan: - Patient has had multiple episodes of pneumonia. He was discharged from [facility] on 10/30 2017 after treatment for community acquired pneumonia. -His culture showed a mixed growth, pending final report . Cultures are negative for acid-fast bacilli. -on physical exam patient had bilateral wheezing and rhonchi. WBC 9.2-> 12.9 - > 15 likely due to being on steroids. -Currently on Azithromycin 500mg and Rocephin 1000mg. (3) Right lower lobe lung mass Current Visit: Yes Status: Acute Assessment and Plan: -Has a known right lower lobe mass which is unchanged from his last imaging. - Per pulmonology, patient will need an outpatient follow-up which may include a PET scan and a possible repeat bronchoscopy (4) Hemoptysis Current Visit: Yes Status: Resolved Assessment and Plan: - Likely due to multiple episodes of pneumonia. Patient was also found to have right lower lobe lung mass. No evidence for any mitral valve stenosis. No History of malignancy. - currently resolved. H&H stable -Follow up with pulmonology as an outpatient for further workup of right lower lobe lung mass-possiblyPET scan or repeat bronchoscopy.. DVT Prophylaxis: EPCD - Time Spent with Patient Total time spent is greater than 50% in coordination of care (as documented) at patient's floor/unit and/or counseling patient: Internal Medicine: Result - Labs CBC & Chem 7: 04/07/18 06:13 04/07/18 06:13 Labs: Short CBC 04/07/18 Range/Units 06:13 WBC 15.0 H (4.3-11.1) K/mcL Hgb 11.3 L (12.9-16.9) g/dL Hct 34.9 L (37.5-50.1) % Plt Count 242 (140-400) K/mcL Neutrophils # 9.3 H (1.6-8.9) K/mcL BMP 04/07/18 06:13 Sodium 138 Potassium 4.0 Chloride 102 Carbon Dioxide 28 BUN 29 H Creatinine 0.85 Glucose 146 H Calcium 9.0 - ABG Interpretation ABG results: PT/INR, D-dimer PT 11.6 Seconds (9.4-12.1) 04/05/18 02:57 <Ciro Villegas - Last Filed: 04/07/18 16:13> (4) Pneumonia Qualifiers: Pneumonia type: due to other aerobic Gram-negative bacteria Laterality: unspecified laterality Lung location: unspecified part of lung Qualified Code( s): J15.6 - Pneumonia due to other Gram-negative bacteria (7) HTN (hypertension) Qualifiers: Hypertension type: essential hypertension Qualified Code(s): I10 - Essential (primary) hypertension (8) Chronic respiratory failure Qualifiers: Respiratory failure complication: hypoxia Qualified Code(s): J96.11 - Chronic respiratory failure with hypoxia (9) CAD (coronary artery disease) Qualifiers: Coronary Disease-Associated Artery/Lesion type: [place] artery [place] vs. transplanted heart: [place] heart Associated angina: without angina Qualified Code(s): I25.10 - Atherosclerotic heart disease of [place] coronary artery without angina pectoris <Nikolai Lobato - Last Filed: 04/07/18 16:47> (2) Pneumonia Qualifiers: Pneumonia type: due to other aerobic Gram-negative bacteria Laterality: unspecified laterality Lung location: unspecified part of lung Qualified Code( s): J15.6 - Pneumonia due to other Gram-negative bacteria
[2018-04-07] MEDS: Sennosides 8.6 MG TABLET PO SCH (22:33)
--- NOTE | 2018-04-07 23:10 | Event Note ---
Date of Encounter: 04/07/18 Time of Encounter: 22:00 Alerted by pts nurse ESME Khoury that the pt. has begun coughing up scant amount of bright hemoptysis this evening. Pt. short of breath. Pt. admitted for COPD exacerbation, right LLL mass, and suspected PNA. Nurse instructed to monitor pts. secretions carefully. Pulmonology consult ordered as latest Pulmonology note states that hemoptysis has resolved. Consult will need followed up by a.m. team. Alerted by pts. nurse that pt. had coughed up blood clots @ 22:57 in amount noted as small to moderate. H/H ordered for 04:00. Nurse instructed to continue to monitor pt. and output closely overnight.
[2018-04-08] MEDS: Ringers Solution, Lactated 1,000 ML IVC SCH ×2 (01:41→20:20)
[2018-04-08] MEDS: Ipratropium/Albuterol Neb 3 ML IH SCH ×7 (03:49→23:19)
[2018-04-08] MEDS ORDERED: Ipratropium/Albuterol Neb 3 ML IH ONE (04:47)
[2018-04-08 05:46] LABS: Basophils # 0.1 K/mcL (0.0-0.2); Basophils % 0.9 %; Eosinophils % 0.2 %; Hematocrit 35.6 % (37.5-50.1); Hemoglobin 11.6 g/dL (12.9-16.9); Immature Granulocytes % 3.7 % (0-4); Lymphocytes # 3.1 K/mcL (0.6-4.6); Lymphocytes % 21.3 %; Mean Corpuscular HGB Conc 32.6 g/dL (31.6-35.5); Mean Corpuscular Hemoglobin 29.4 pg (28.0-33.3); Mean Corpuscular Volume 90.4 fL (83.0-100.0); Mean Platelet Volume 10.1 fL (9.4-12.4); Monocytes # 1.9 K/mcL (0.0-1.3); Monocytes % 13.2 %; Neutrophils # 8.8 K/mcL (1.6-8.9); Platelet Count 276 K/mcL (140-400); Red Blood Count 3.94 M/mcL (4.19-5.50); Red Cell Distribution Width 14.6 % (11.5-14.5); Segmented Neutrophils % 60.7 %
[2018-04-08] MEDS: MethylPREDNISolone 40 MG/ML VIAL IVP SCH ×2 (05:48→17:14)
[2018-04-08 06:08] LABS: BUN/Creatinine Ratio 30 (6-26); Blood Urea Nitrogen 24 mg/dL (8-23); Calcium 9.2 mg/dL (8.6-10.3); Carbon Dioxide 31 mEq/L (23-29); Chloride 96 mEq/L (98-107); Glucose 100 mg/dL (70-105); Osmolality,Calculated 288 (280-300); Potassium 3.8 mEq/L (3.5-5.1); Sodium 137 mEq/L (136-145); eGFR For Non-African Americans > 60 (> 60)
[2018-04-08] MEDS: (Combivent Respimat InH) IH SCH ×4 (07:33→17:11)
[2018-04-08] MEDS: hydroCHLOROthiazide 25 MG TABLET PO SCH (08:52)
[2018-04-08] MEDS: levETIRAcetam 250 MG TABLET PO SCH ×2 (08:52→21:01)
[2018-04-08] MEDS: clonazePAM 0.5 MG TABLET PO SCH ×4 (08:53→21:02)
[2018-04-08] MEDS: Famotidine 20 MG TABLET PO SCH (08:53)
[2018-04-08] MEDS: Primidone 50 MG TABLET PO SCH ×2 (08:53→21:02)
[2018-04-08] MEDS: amLODIPine 5 MG TABLET PO SCH (08:53)
[2018-04-08] MEDS: Furosemide 20 MG TABLET PO SCH (08:53)
[2018-04-08] MEDS: Divalproex (12 HR) 500 MG TABLET PO SCH ×2 (08:53→21:01)
[2018-04-08] MEDS: Baclofen 10 MG TABLET PO SCH ×3 (08:53→21:02)
[2018-04-08] MEDS: GuaiFENesin Liq 200 MG/10 ML UDC PO SCH ×3 (08:54→21:02)
[2018-04-08] MEDS: SELENIUM SULFIDE APPL TP SCH (12:02)
[2018-04-08] MEDS: Azithromycin 500 MG in D5% in Water 250 ML IVPB SCH (12:07)
[2018-04-08] MEDS: cefTRIAXone 1,000 MG in Water for inj. (sterile) 20 ML 10 ML IVP SCH (12:08)
--- NOTE | 2018-04-08 14:19 | Internal Med Progress Note ---
<Nikolai Lobato - Last Filed: 04/08/18 15:48> Hospitalist Progress Note - Encounter Date of Encounter: 04/08/18 Time of Encounter: 09:45 - Subjective Interval History: 04/08 patient had 2 episodes of mild hemoptysis since yesterday . Currently his H&H is stable. Patient endorses no worsening SOB, chest pain and palpitations. Patient was seen by pulmonology and is s/p Bronchoscopy, andno source of hemoptysis was obtained. He was recommended an out-patient Pulmonology follow up. However, with his new episode of hemoptyisis, the plan is to get another pulmonology evaluation. 04/07 Mr daniel has had no acute events overnight. Endorses no new episodes of hemoptysis. H&H has been stable this far. He was a little tired this morning when I met him. It was attributed to his being awake for most of the time at night watching TV. He continues to be on day 3 of Zithromax 500 mg and Rocephin 1000 milligrams for his community-acquired pneumonia. He continues to be on DuoNeb's every 4 hours for acute exacerbation of COPD. 04/06 Mr. daniel is a 67-year-old male with a past medical history of anoxic brain injury, compensated diastolic CHF , COPD (on home oxygen 2 L) was admitted to the floor because of complains of coughing up red colored mucus. Patient endorses that he has been coughing up 2-3 tablespoons of blood and sputum which has been progressively getting worse. Initial workup in the ER showed an old right lower lobe lung mass unchanged from the previous findings in the CT scan along with cavitation. Most recent bronchoscopy at [facility] showed that it was not malignant. He had a bronchoscopy here [facility] yesterday which showed traceobronchomalacia and pneumonia. His BAL cultures are pending. No source of bleeding was found during the procedure. Patient was A&O 3 when i met him and currently satting at 98% on 2 L of home oxygen. - Exam Vitals: Temp Pulse Resp BP Pulse Ox 96.7 F L 76 19 151/85 98 04/08/18 11:23 04/08/18 11:23 04/08/18 11:23 04/08/18 11:23 04/08/18 11:23 Exam: GENERAL: Alert, moderate distress, cooperative EYES: PERRLA, EOMI EARS: External ears normal, canals clear OROPHARYNX: Lips, mucosa, and tongue normal. Teeth and gums normal. Oropharynx normal. NECK: No jugulovenous distention, No carotid bruits, Carotid pulse normal contour, Supple LUNGS: diminished breath sounds, rhonchi CARDIAC: Normal S1 and S2; no rubs, murmurs, or gallops ABDOMEN: Abdomen soft, non-tender, BS normal, No masses or organomegaly EXTREMITIES: Extremities normal, no deformities, edema, clubbing or skin discoloration. Good capillary refill., No ulcers NEURO: Gait not tested. Significant weakness in bilateral upper and lower extremities power 3/5 diffusely PULSES: 2+ radial, 2+ carotid - Assessment and Plan (1) Acute exacerbation of chronic obstructive airways disease Current Visit: No Status: Acute (2) Pneumonia Current Visit: No Status: Suspected (3) Right lower lobe lung mass Current Visit: Yes Status: Acute (4) Hemoptysis Current Visit: Yes Status: Resolved - Time Spent with Patient Total time spent is greater than 50% in coordination of care (as documented) at patient's floor/unit and/or counseling patient: Internal Medicine: Result - Labs CBC & Chem 7: 04/08/18 03:45 04/08/18 03:45 Labs: Short CBC 04/08/18 Range/Units 03:45 WBC 14.5 H (4.3-11.1) K/mcL Hgb 11.6 L (12.9-16.9) g/dL Hct 35.6 L (37.5-50.1) % Plt Count 276 (140-400) K/mcL Neutrophils # 8.8 (1.6-8.9) K/mcL BMP 04/08/18 03:45 Sodium 137 Potassium 3.8 Chloride 96 L Carbon Dioxide 31 H BUN 24 H Creatinine 0.81 Glucose 100 Calcium 9.2 - ABG Interpretation ABG results: PT/INR, D-dimer PT 11.6 Seconds (9.4-12.1) 04/05/18 02:57 Consult Discharge Plan - Plan Referrals: Ezio Horner MD [Partnered Physician] - (Your appointment has been requested. Our offices will call you with an appointment time and day ) [facility]Primary Care Provider[facility] - <Ciro Villegas - Last Filed: 04/08/18 16:49> Hospitalist Progress Note - Encounter Date of Encounter: 04/08/18 - Exam Vitals: Temp Pulse Resp BP Pulse Ox 98.0 F 96 17 129/72 97 04/08/18 16:22 04/08/18 16:22 04/08/18 16:22 04/08/18 16:22 04/08/18 16:22 - Assessment and Plan (1) Pneumonia Current Visit: No Status: Suspected (2) Acute exacerbation of chronic obstructive airways disease Current Visit: No Status: Acute (3) DVT prophylaxis Current Visit: No Status: Acute (4) Right lower lobe lung mass Current Visit: Yes Status: Acute (5) Hemoptysis Current Visit: Yes Status: Resolved (6) Anoxic brain injury Current Visit: No Status: Chronic (7) HTN (hypertension) Current Visit: No Status: Chronic (8) Chronic respiratory failure Current Visit: No Status: Chronic (9) CAD (coronary artery disease) Current Visit: No Status: Chronic - Time Spent with Patient Total time spent is greater than 50% in coordination of care (as documented) at patient's floor/unit and/or counseling patient: Internal Medicine: Result - Labs CBC & Chem 7: 04/08/18 03:45 04/08/18 03:45 Labs: Short CBC 04/08/18 Range/Units 03:45 WBC 14.5 H (4.3-11.1) K/mcL Hgb 11.6 L (12.9-16.9) g/dL Hct 35.6 L (37.5-50.1) % Plt Count 276 (140-400) K/mcL Neutrophils # 8.8 (1.6-8.9) K/mcL BMP 04/08/18 03:45 Sodium 137 Potassium 3.8 Chloride 96 L Carbon Dioxide 31 H BUN 24 H Creatinine 0.81 Glucose 100 Calcium 9.2 - ABG Interpretation ABG results: PT/INR, D-dimer PT 11.6 Seconds (9.4-12.1) 04/05/18 02:57 - Attending Attestation I examined this patient and my medical decision-making was reviewed with the Resident Physician on 04/08/18. I agree with the documented findings, disposition and treatment plan as described except to the extent set forth below. Mr Daniel is currently admitted for hemoptysis and pneumonia. He remains moderate to high risk due to potential for worsening clinical status. Mr Daniel is concerned about recurrent hemoptysis. He has E coli in sputum - sensitive to Ceftriaxone. No fever or chills. No GI issues. Exam Alert. Resting comfortably in bed Mucus membranes dry Heart distant. Not tachy Lungs with few rhonchi Abd soft No edema I/P 1. Hemoptysis - requesting another pulm opinion 2. PNA Further diagnoses and plan as above. <Nikolai Lobato - Last Filed: 04/08/18 15:48> (2) Pneumonia Qualifiers: Pneumonia type: due to other aerobic Gram-negative bacteria Laterality: unspecified laterality Lung location: unspecified part of lung Qualified Code( s): J15.6 - Pneumonia due to other Gram-negative bacteria <Ciro Villegas - Last Filed: 04/08/18 16:49> (1) Pneumonia Qualifiers: Pneumonia type: due to other aerobic Gram-negative bacteria Laterality: unspecified laterality Lung location: unspecified part of lung Qualified Code( s): J15.6 - Pneumonia due to other Gram-negative bacteria (7) HTN (hypertension) Qualifiers: Hypertension type: essential hypertension Qualified Code(s): I10 - Essential (primary) hypertension (8) Chronic respiratory failure Qualifiers: Respiratory failure complication: hypoxia Qualified Code(s): J96.11 - Chronic respiratory failure with hypoxia (9) CAD (coronary artery disease) Qualifiers: Coronary Disease-Associated Artery/Lesion type: [place] artery [place] vs. transplanted heart: [place] heart Associated angina: without angina Qualified Code(s): I25.10 - Atherosclerotic heart disease of [place] coronary artery without angina pectoris
[2018-04-08 15:16] LABS: Influenza A PCR Body Fluid NOT DETECTED; Influenza B PCR Body Fluid NOT DETECTED; RVP Body Fluid Source BAL
[2018-04-08 15:20] LABS: RSV PCR Body Fluid NOT DETECTED
[2018-04-08] MEDS: Sennosides 8.6 MG TABLET PO SCH (21:02)
[2018-04-09 02:07] LABS: Basophils # 0.1 K/mcL (0.0-0.2); Basophils % 0.8 %; Hematocrit 35.4 % (37.5-50.1); Hemoglobin 11.8 g/dL (12.9-16.9); Immature Granulocytes % 4.8 % (0-4); Lymphocytes % 15.5 %; Mean Corpuscular HGB Conc 33.3 g/dL (31.6-35.5); Mean Corpuscular Hemoglobin 29.6 pg (28.0-33.3); Mean Corpuscular Volume 88.9 fL (83.0-100.0); Mean Platelet Volume 9.5 fL (9.4-12.4); Monocytes # 1.9 K/mcL (0.0-1.3); Monocytes % 14.2 %; Neutrophils # 8.4 K/mcL (1.6-8.9); Platelet Count 287 K/mcL (140-400); Red Blood Count 3.98 M/mcL (4.19-5.50); Red Cell Distribution Width 14.7 % (11.5-14.5); Segmented Neutrophils % 64.7 %
[2018-04-09] MEDS ORDERED: Ipratropium/Albuterol Neb 3 ML IH ONE (02:08)
[2018-04-09 02:23] LABS: BUN/Creatinine Ratio 37 (6-26); Blood Urea Nitrogen 29 mg/dL (8-23); Calcium 9.1 mg/dL (8.6-10.3); Carbon Dioxide 34 mEq/L (23-29); Chloride 96 mEq/L (98-107); Glucose 144 mg/dL (70-105); Osmolality,Calculated 288 (280-300); Potassium 3.9 mEq/L (3.5-5.1); Sodium 135 mEq/L (136-145); eGFR For Non-African Americans > 60 (> 60)
[2018-04-09] MEDS: Ipratropium/Albuterol Neb 3 ML IH SCH ×6 (04:07→23:13)
[2018-04-09] MEDS: MethylPREDNISolone 40 MG/ML VIAL IVP SCH ×2 (04:48→17:27)
[2018-04-09] MEDS: (Combivent Respimat InH) IH SCH ×3 (07:15→23:30)
[2018-04-09] MEDS: Baclofen 10 MG TABLET PO SCH ×3 (09:51→21:05)
[2018-04-09] MEDS: levETIRAcetam 250 MG TABLET PO SCH ×2 (09:52→21:05)
[2018-04-09] MEDS: hydroCHLOROthiazide 25 MG TABLET PO SCH (09:52)
[2018-04-09] MEDS: amLODIPine 5 MG TABLET PO SCH (09:52)
[2018-04-09] MEDS: Famotidine 20 MG TABLET PO SCH (09:52)
[2018-04-09] MEDS: Primidone 50 MG TABLET PO SCH ×2 (09:52→21:05)
[2018-04-09] MEDS: clonazePAM 0.5 MG TABLET PO SCH ×4 (09:52→21:05)
[2018-04-09] MEDS: Furosemide 20 MG TABLET PO SCH ×2 (09:52→10:05)
[2018-04-09] MEDS: Divalproex (12 HR) 500 MG TABLET PO SCH ×2 (09:52→21:05)
[2018-04-09] MEDS: GuaiFENesin Liq 200 MG/10 ML UDC PO SCH ×4 (09:53→21:10)
[2018-04-09] MEDS: cefTRIAXone 1,000 MG in Water for inj. (sterile) 20 ML 10 ML IVP SCH (10:10)
[2018-04-09] MEDS: Azithromycin 500 MG in D5% in Water 250 ML IVPB SCH (10:10)
--- NOTE | 2018-04-09 12:46 | Internal Med Progress Note ---
Hospitalist Progress Note - Encounter Date of Encounter: 04/09/18 Time of Encounter: 12:25 - Subjective Interval History: Mr Daniel is currently admitted for PNA and hemoptysis. He remains moderate to high risk due to potential for worsening clinical status. Mr Daniel feels OK. Had some scant hemoptysis last night. No fever or chills. No CP at this time. No GI issues. - Exam Vitals: Temp Pulse Resp BP Pulse Ox 98.0 F 77 16 143/83 96 04/09/18 11:37 04/09/18 11:37 04/09/18 11:37 04/09/18 11:37 04/09/18 11:37 Exam: General: Alert and oriented. Comfortable at this time. Skin: Normal color, no rash, no lesions. H: Normocephalic. EENT: EOMI, pupils equal and reactive. Mucus membranes moist. No lesion. Cardiovascular: Normal S1 & S2, no rubs, murmurs or gallops. No JVD. Pulse regular. Not tachycardic Lungs: Normal breath sounds, wheeze on L. Abdomen: Soft, non-tender, no rigidity. Normal bowel sounds. Extremities: No deformity, no edema or tenderness, no joint swelling or clubbing. Neurological: Alert and oriented. Pulses: Carotid and radial pulses normal +2. Rest of the physical exam is non contributory - Assessment and Plan (1) Pneumonia Current Visit: No Status: Suspected Assessment and Plan: Currently on IV abx to cover E coli in sputum. Will continue IV for this time. (2) Acute exacerbation of chronic obstructive airways disease Current Visit: No Status: Acute Assessment and Plan: Still wheezing at this time. On IV steroids. Change to PO tomorrow. (3) DVT prophylaxis Current Visit: No Status: Acute (4) Right lower lobe lung mass Current Visit: Yes Status: Acute Assessment and Plan: Per pulmonary work up. (5) Hemoptysis Current Visit: Yes Status: Acute Assessment and Plan: Continues to have small episodes of hemoptysis. Appreciate pulm input. (6) Anoxic brain injury Current Visit: No Status: Chronic Assessment and Plan: Chronic issue (7) HTN (hypertension) Current Visit: No Status: Chronic Assessment and Plan: Controlled at this time. (8) Chronic respiratory failure Current Visit: No Status: Chronic Assessment and Plan: Chronic issue. Continue oxygen supplementation. (9) CAD (coronary artery disease) Current Visit: No Status: Chronic Assessment and Plan: Chronic issue - Time Spent with Patient Total time spent is greater than 50% in coordination of care (as documented) at patient's floor/unit and/or counseling patient: Internal Medicine: Result - Labs CBC & Chem 7: 04/09/18 01:45 04/09/18 01:45 Labs: Short CBC 04/09/18 Range/Units 01:45 WBC 13.0 H (4.3-11.1) K/mcL Hgb 11.8 L (12.9-16.9) g/dL Hct 35.4 L (37.5-50.1) % Plt Count 287 (140-400) K/mcL Neutrophils # 8.4 (1.6-8.9) K/mcL BMP 04/09/18 01:45 Sodium 135 L Potassium 3.9 Chloride 96 L Carbon Dioxide 34 H BUN 29 H Creatinine 0.78 Glucose 144 H Calcium 9.1 - ABG Interpretation ABG results: PT/INR, D-dimer PT 11.6 Seconds (9.4-12.1) 04/05/18 02:57 Consult Discharge Plan - Plan Referrals: Ezio Horner MD [Partnered Physician] - (Your appointment has been requested. Our offices will call you with an appointment time and day ) [facility] [Primary Care Provider] - (1) Pneumonia Qualifiers: Pneumonia type: due to Escherichia coli Laterality: right Lung location: upper lobe of lung Qualified Code(s): J15.5 - Pneumonia due to Escherichia coli (7) HTN (hypertension) Qualifiers: Hypertension type: essential hypertension Qualified Code(s): I10 - Essential (primary) hypertension (8) Chronic respiratory failure Qualifiers: Respiratory failure complication: hypoxia Qualified Code(s): J96.11 - Chronic respiratory failure with hypoxia (9) CAD (coronary artery disease) Qualifiers: Coronary Disease-Associated Artery/Lesion type: [place] artery [place] vs. transplanted heart: [place] heart Associated angina: without angina Qualified Code(s): I25.10 - Atherosclerotic heart disease of [place] coronary artery without angina pectoris
[2018-04-09] MEDS: traMADol 50 MG TABLET PO PRN ×2 (15:28→21:05)
--- NOTE | 2018-04-09 16:56 | Event Note ---
Date of Encounter: 04/09/18 Time of Encounter: 12:00 Presented with COPD exacerbation with right lower lobe pneumonia with possible right lower lobe lung mass needs outpatient E breasts are navigational bronchoscopy had I am recent bronchoscopy did not show any endobronchial lesions mostly inflammation related to pneumonia the right lower lobe specimen shows Escherichia coli.. Is having minimal hemoptysis told the team to get a sputum cup to assess the amount of hemoptysis if hemoptysis is significant will consider bronchoscopy with airway exam to look for bleeding areas will keep him NPO after midnight.
[2018-04-09] MEDS: Ringers Solution, Lactated 1,000 ML IVC SCH (17:17)
[2018-04-09] MEDS: Sennosides 8.6 MG TABLET PO SCH (21:05)
[2018-04-09] MEDS ORDERED: Acetaminophen IV 500 MG/50 ML INFUS..BTL IVPB ONE (23:11)
[2018-04-10] MEDS: Ipratropium/Albuterol Neb 3 ML IH SCH ×5 (04:13→20:30)
[2018-04-10] MEDS: MethylPREDNISolone 40 MG/ML VIAL IVP SCH (05:40)
[2018-04-10 06:37] LABS: Hematocrit 34.2 % (37.5-50.1); Hemoglobin 11.3 g/dL (12.9-16.9); Mean Corpuscular Volume 87.7 fL (83.0-100.0); Mean Platelet Volume 9.5 fL (9.4-12.4); Platelet Count 301 K/mcL (140-400); Red Cell Distribution Width 14.7 % (11.5-14.5)
[2018-04-10 06:44] LABS: INR 0.9; Prothrombin Time 10.5 Seconds (9.4-12.1)
[2018-04-10 07:04] LABS: BUN/Creatinine Ratio 40 (6-26); Blood Urea Nitrogen 35 mg/dL (8-23); Calcium 9.2 mg/dL (8.6-10.3); Carbon Dioxide 28 mEq/L (23-29); Chloride 96 mEq/L (98-107); Glucose 137 mg/dL (70-105); Magnesium 1.9 mg/dL (1.6-2.6); Osmolality,Calculated 290 (280-300); Potassium 3.8 mEq/L (3.5-5.1); Sodium 135 mEq/L (136-145); eGFR For Non-African Americans > 60 (> 60)
[2018-04-10] MEDS: Baclofen 10 MG TABLET PO SCH ×3 (09:15→21:09)
[2018-04-10] MEDS: levETIRAcetam 250 MG TABLET PO SCH ×2 (09:15→21:10)
[2018-04-10] MEDS: Primidone 50 MG TABLET PO SCH ×2 (09:15→21:10)
[2018-04-10] MEDS: clonazePAM 0.5 MG TABLET PO SCH ×4 (09:15→21:10)
[2018-04-10] MEDS: Famotidine 20 MG TABLET PO SCH (09:15)
[2018-04-10] MEDS: Furosemide 20 MG TABLET PO SCH (09:16)
[2018-04-10] MEDS: hydroCHLOROthiazide 25 MG TABLET PO SCH (09:16)
[2018-04-10] MEDS: Divalproex (12 HR) 500 MG TABLET PO SCH ×2 (09:16→21:10)
[2018-04-10] MEDS: amLODIPine 5 MG TABLET PO SCH (09:16)
[2018-04-10] MEDS: GuaiFENesin Liq 200 MG/10 ML UDC PO SCH ×3 (09:17→21:11)
[2018-04-10] MEDS: (Combivent Respimat InH) IH SCH ×4 (09:44→21:15)
--- NOTE | 2018-04-10 10:58 | Event Note ---
Date of Encounter: 04/10/18 Time of Encounter: 10:00 Patient didnt have much hemoptysis for the whole 24 hrs will cancel the bronchoscopy . Spoke with Daughter Genoveva Daniel told her that she is ok to go home from pulmonary stand point but will need 4-6 weeks follow up with outpatient pulmonary clinic . Patient's daughter verbalized understanding.
[2018-04-10] MEDS: Ringers Solution, Lactated 1,000 ML IVC SCH (14:05)
--- NOTE | 2018-04-10 16:44 | Internal Med Progress Note ---
Hospitalist Progress Note - Encounter Date of Encounter: 04/10/18 Time of Encounter: 12:40 - Subjective Interval History: Mr Daniel is currently admitted for PNA and hemoptysis. He remains moderate to high risk due to potential for worsening clinical status. Mr Daniel is resting. He has had no hemoptysis for over 24 hours. No fever or chills. No GI issues. Sputum with E coli. - Exam Vitals: Temp Pulse Resp BP Pulse Ox 99.0 F 83 16 146/65 96 04/10/18 15:20 04/10/18 15:20 04/10/18 15:20 04/10/18 15:20 04/10/18 15:20 Exam: General: Alert and oriented. Comfortable at this time. Skin: Normal color, no rash, no lesions. H: Normocephalic. EENT: EOMI, pupils reactive. Mucus membranes moist. No lesion. Cardiovascular: Normal S1 & S2, no rubs, murmurs or gallops. No JVD. Pulse regular. Not tachycardic at this time. Lungs: Normal breath sounds, clearer today. Abdomen: Soft, non-tender, no rigidity. Normal bowel sounds. Extremities: No deformity, no edema or tenderness, no joint swelling or clubbing. Neurological: Alert and oriented. Pulses: Carotid and radial pulses normal +2. Rest of the physical exam is non contributory - Assessment and Plan (1) Pneumonia Current Visit: No Status: Suspected Assessment and Plan: Has been on Ceftriaxone/azithromycin. Will d/c azithromycin and change to Cefipime. Anticipate d/c tomorrow. He will have completed 7 days of abx at that time. (2) Acute exacerbation of chronic obstructive airways disease Current Visit: No Status: Acute Assessment and Plan: Seems to be doing better. Tapering steroids. (3) DVT prophylaxis Current Visit: No Status: Acute Assessment and Plan: EPC D (4) Right lower lobe lung mass Current Visit: Yes Status: Acute Assessment and Plan: Per pulmonary work up. (5) Hemoptysis Current Visit: Yes Status: Acute Assessment and Plan: Has had no hemoptysis over last 24 hours. (6) Anoxic brain injury Current Visit: No Status: Chronic Assessment and Plan: Chronic issue (7) HTN (hypertension) Current Visit: No Status: Chronic Assessment and Plan: Controlled at this time. (8) Chronic respiratory failure Current Visit: No Status: Chronic Assessment and Plan: Chronic issue. Continue oxygen supplementation. (9) CAD (coronary artery disease) Current Visit: No Status: Chronic Assessment and Plan: Chronic issue - Time Spent with Patient Total time spent is greater than 50% in coordination of care (as documented) at patient's floor/unit and/or counseling patient: Internal Medicine: Result - Labs CBC & Chem 7: 04/10/18 05:51 04/10/18 05:51 Labs: Short CBC 04/10/18 Range/Units 05:51 WBC 15.3 H (4.3-11.1) K/mcL Hgb 11.3 L (12.9-16.9) g/dL Hct 34.2 L (37.5-50.1) % Plt Count 301 (140-400) K/mcL BMP 04/10/18 05:51 Sodium 135 L Potassium 3.8 Chloride 96 L Carbon Dioxide 28 BUN 35 H Creatinine 0.88 Glucose 137 H Calcium 9.2 - ABG Interpretation ABG results: PT/INR, D-dimer PT 10.5 Seconds (9.4-12.1) 04/10/18 05:51 - Impressions Impressions Chest X-Ray 04/10/18 08:15 IMPRESSION: Developing bilateral lower lobe infiltrates and small effusions. D/ / 04/10/2018 09:07:46 Sher Lazaro MD / reta Interpreting Provider: Sher Lazaro MD Consult Discharge Plan - Plan Referrals: Ezio Horner MD [Partnered Physician] - (Your appointment has been requested. Our offices will call you with an appointment time and day ) [facility] [Primary Care Provider] - (1) Pneumonia Qualifiers: Pneumonia type: due to Escherichia coli Laterality: right Lung location: upper lobe of lung Qualified Code(s): J15.5 - Pneumonia due to Escherichia coli (7) HTN (hypertension) Qualifiers: Hypertension type: essential hypertension Qualified Code(s): I10 - Essential (primary) hypertension (8) Chronic respiratory failure Qualifiers: Respiratory failure complication: hypoxia Qualified Code(s): J96.11 - Chronic respiratory failure with hypoxia (9) CAD (coronary artery disease) Qualifiers: Coronary Disease-Associated Artery/Lesion type: [place] artery [place] vs. transplanted heart: [place] heart Associated angina: without angina Qualified Code(s): I25.10 - Atherosclerotic heart disease of [place] coronary artery without angina pectoris
[2018-04-10] MEDS: Cefepime HCl 1,000 MG in 0.9 % Sodium Chloride Mini Bag 100 ML IVPB SCH (17:18)
[2018-04-10] MEDS: Sennosides 8.6 MG TABLET PO SCH (21:10)
[2018-04-11] MEDS: Ipratropium/Albuterol Neb 3 ML IH SCH ×3 (00:20→07:19)
[2018-04-11] MEDS: traMADol 50 MG TABLET PO PRN ×2 (01:36→05:21)
[2018-04-11] MEDS: Cefepime HCl 1,000 MG in 0.9 % Sodium Chloride Mini Bag 100 ML IVPB SCH (05:22)
[2018-04-11 06:18] LABS: Hematocrit 34.5 % (37.5-50.1); Hemoglobin 11.2 g/dL (12.9-16.9); Mean Corpuscular HGB Conc 32.5 g/dL (31.6-35.5); Mean Corpuscular Hemoglobin 28.8 pg (28.0-33.3); Mean Corpuscular Volume 88.7 fL (83.0-100.0); Mean Platelet Volume 9.6 fL (9.4-12.4); Platelet Count 300 K/mcL (140-400); Red Blood Count 3.89 M/mcL (4.19-5.50); Red Cell Distribution Width 14.9 % (11.5-14.5)
[2018-04-11 06:30] VITALS: BP 143/80
[2018-04-11 06:35] LABS: BUN/Creatinine Ratio 38 (6-26); Blood Urea Nitrogen 33 mg/dL (8-23); Calcium 9.1 mg/dL (8.6-10.3); Carbon Dioxide 35 mEq/L (23-29); Chloride 96 mEq/L (98-107); Glucose 88 mg/dL (70-105); Osmolality,Calculated 289 (280-300); Potassium 3.9 mEq/L (3.5-5.1); Sodium 136 mEq/L (136-145); eGFR For Non-African Americans > 60 (> 60)
[2018-04-11] MEDS: Ringers Solution, Lactated 1,000 ML IVC SCH (08:58)
[2018-04-11] MEDS: (Combivent Respimat InH) IH SCH (08:58)
[2018-04-11] MEDS: GuaiFENesin Liq 200 MG/10 ML UDC PO SCH (08:59)
[2018-04-11] MEDS ORDERED: predniSONE 20 MG TABLET PO SCH (09:00)
[2018-04-11] MEDS: amLODIPine 5 MG TABLET PO SCH (09:02)
[2018-04-11] MEDS: Primidone 50 MG TABLET PO SCH (09:02)
[2018-04-11] MEDS: clonazePAM 0.5 MG TABLET PO SCH (09:02)
[2018-04-11] MEDS: levETIRAcetam 250 MG TABLET PO SCH (09:02)
[2018-04-11] MEDS: Divalproex (12 HR) 500 MG TABLET PO SCH (09:03)
[2018-04-11] MEDS: Baclofen 10 MG TABLET PO SCH (09:03)
[2018-04-11] MEDS: hydroCHLOROthiazide 25 MG TABLET PO SCH (09:03)
[2018-04-11] MEDS: Furosemide 20 MG TABLET PO SCH (09:03)
[2018-04-11] MEDS: Famotidine 20 MG TABLET PO SCH (09:03)
--- NOTE | 2018-04-11 09:32 | Discharge Summary ---
<Nikolai Lobato - Last Filed: 04/11/18 17:44> - NOTES TO OUTPATIENT PROVIDER Notes to Outpatient Provider: - follow up with pulmonology for the lung mass work up as an outpatient,. - take steroids taper for the time indicated. Date of Encounter: 04/11/18 Time of Encounter: 10:30 - Discharge Diagnosis (1) Hemoptysis Priority: Primary Status: Acute (2) Acute exacerbation of chronic obstructive airways disease Priority: Secondary Status: Acute (3) Pneumonia Priority: Secondary Status: Suspected Qualifiers: Pneumonia type: due to Escherichia coli Laterality: right Lung location: upper lobe of lung Qualified Code(s): J15.5 - Pneumonia due to Escherichia coli (4) Right lower lobe lung mass Priority: Secondary Status: Acute Hospital course: Mr. Daniel is a 67 year old male a past medical history of anoxic brain injury, diastolic CHF, COPD(on home oxygen 2 L) was admitted to the floor because of complains of coughing up red colored mucus. Patient endorsed that he has been coughing up 2-3 tablespoons of blood and sputum which has been progressively getting worse. Initial workup in the ER showed an old right lower lobe lung mass unchanged from the previous findings in the CT scan along with cavitation. Most recent bronchoscopy at [facility] showed that it was not malignant. He had a bronchoscopy here [facility] yesterday which showed traceobronchomalacia and pneumonia. Patient's respiratory culture was positive for Escherichia coli. He was treated with Rocephin and azithromycin, but was just to cefepime. Patient had completed 7 days of antibiotic treatment. Patient had mild episodes of hemoptysis but his H&H was stable during the course of hospital stay. Patient has been hemodynamically deemed fit to be discharged today. He is being sent home on prednisone taper and has been recommended to follow-up with pulmonology as an outpatient - Time Spent with Patient Total time spent providing and/or coordinating discharge services: - Discharge Medications Prescriptions: predniSONE [PredniSONE] See Taper PO DAILY #15 tablet Home Medications: Aspirin 81 mg PO DAILY 01/17/16 [History] Atenolol 100 mg PO DAILY 01/17/16 [History] Docusate [Colace] 100 mg PO BID PRN 01/17/16 [History] Furosemide [Lasix] 20 mg PO DAILY 01/17/16 [History] GuaiFENesin/Dextromethorphan [Kro Child Mucus Rlf Cough Liq] 10 ml PO Q6H PRN [History] Guaifenesin 400 mg PO TID 01/17/16 [History] Ipratropium/Albuterol Sulfate [Combivent Respimat Inhal [place]] 1 puff IH QID [History] Ketoconazole Shampoo [Nizoral Shampoo] 1 appl TP AD PRN 01/17/16 [History] Primidone [Mysoline] 100 mg PO BID 01/17/16 [History] Sertraline [Zoloft] 200 mg PO DAILY 01/17/16 [History] amLODIPine [Norvasc] 10 mg PO DAILY 01/17/16 [History] Acetaminophen [Tylenol] 650 mg PO QID PRN 04/12/17 [History] Atorvastatin [Lipitor] 40 mg PO HS 04/12/17 [History] Baclofen [Lioresal] 5 mg PO TID 04/12/17 [History] Budesonide [Pulmicort Flexhaler 180mcg] 2 puff IH BID 04/12/17 [History] Cholecalciferol (D-3) [Vitamin D] 2,000 unit PO BID 04/12/17 [History] Divalproex (24 HR) [Depakote ER (24 HR)] 500 mg PO BID 04/12/17 [History] Ibuprofen [Motrin] 600 mg PO Q8HR PRN 04/12/17 [History] Ipratropium/Albuterol Neb [Duoneb] 3 ml IH Q6H PRN 04/12/17 [History] Lidocaine Patch [Lidoderm 5% patch] 2 each TP DAILY 04/12/17 [History] Lisinopril 5 mg PO DAILY 04/12/17 [History] Selenium Sulfide 1 appl TP Q72H 04/12/17 [History] Sennosides [Senna] 17.2 mg PO HS 04/12/17 [History] clonazePAM [Klonopin] 1 mg PO QID 04/12/17 [History] hydrOXYzine HCl [Hydroxyzine HCl] 50 mg PO HS PRN 04/12/17 [History] raNITIdine HCl [Zantac] 150 mg PO BID 04/12/17 [History] Bisacodyl [Dulcolax] 10 mg RC DAILY PRN supp.rect 04/15/17 [Rx] Haloperidol [Haldol] 5 mg PO Q6H PRN tablet 04/15/17 [Rx] Polyethylene Glycol 3350 [MiraLAX] 17 gm PO DAILY PRN powd.pack 04/15/17 [Rx] hydroCHLOROthiazide [Hydrochlorothiazide] 12.5 mg PO DAILY tablet 04/15/17 [Rx] levETIRAcetam [Keppra] 500 mg PO BID 04/05/18 [History] predniSONE [PredniSONE] See Taper PO DAILY #15 tablet 04/11/18 [Rx] Allergies/Adverse Reactions: 3 Allergy/AdvReac Type Severity Reaction Status Date / Time moxifloxacin Allergy Swelling Verified 01/28/16 17:07 of Lip/Tongue/Throat Date of admission: 04/06/18 18:04 Primary care physician: PCP [facility] Consults: 04/07/18 22:08 Consult to Pulmonology [CONS] Routine Consulting Provider: [facility] [place] Reason for Consult: pt. coughing up blood Call Completed: No 04/08/18 18:39 Consult to Pulmonology [CONS] Routine Consulting Provider: [facility] Reason for Consult: hemoptysis Call Completed: Yes - Constitutional Vitals: Temp Pulse Resp BP Pulse Ox 97.7 F 68 16 143/80 89 04/11/18 06:29 04/11/18 06:29 04/11/18 07:20 04/11/18 06:29 04/11/18 07:20 Exam: General: Alert and oriented. Comfortable at this time. Skin: Normal color, no rash, no lesions. H: Normocephalic. EENT: EOMI, pupils reactive. Mucus membranes moist. No lesion. Cardiovascular: Normal S1 & S2, no rubs, murmurs or gallops. No JVD. Pulse regular. Not tachycardic at this time. Lungs: Normal breath sounds, clearer today. Abdomen: Soft, non-tender, no rigidity. Normal bowel sounds. Extremities: No deformity, no edema or tenderness, no joint swelling or clubbing. Neurological: Alert and oriented. Pulses: Carotid and radial pulses normal +2. Rest of the physical exam is non contributory - Patient Status Disposition: Home, Self-Care Condition: Fair Overall status at discharge: patient is progressing back to baseline - Discharge Instructions Instructions: Chronic Obstructive Pulmonary Disease (DC), Chronic Hypertension (DC) Follow Up With: Ezio Horner MD [Partnered Physician] - (Your appointment has been requested. Our offices will call you with an appointment time and day ) [facility] [Primary Care Provider] - Additional Instructions: -take steroids 2 pill for 2 days,1 1/2 pills for 3 day, 1 pill for 3 days and 1/ 2 pill for 3 days . - continue taking home inhalers for COPD - follow up with Pulmologist for Right lower lobe Lung mass - Diet and Activity Activity: increase activity as tolerated, wear oxygen at all times Diet: low fat, low cholesterol, low salt diet <Ciro Villegas - Last Filed: 04/11/18 18:34> Date of Encounter: 04/11/18 - Discharge Diagnosis (1) Pneumonia Priority: Primary Status: Suspected Qualifiers: Pneumonia type: due to Escherichia coli Laterality: right Lung location: upper lobe of lung Qualified Code(s): J15.5 - Pneumonia due to Escherichia coli (2) Acute exacerbation of chronic obstructive airways disease Status: Resolved (3) Right lower lobe lung mass Status: Acute (4) Hemoptysis Status: Resolved (5) Anoxic brain injury Priority: Secondary Status: Chronic (6) HTN (hypertension) Priority: Secondary Status: Chronic Qualifiers: Hypertension type: essential hypertension Qualified Code(s): I10 - Essential (primary) hypertension (7) Chronic respiratory failure Priority: Secondary Status: Chronic Qualifiers: Respiratory failure complication: hypoxia Qualified Code(s): J96.11 - Chronic respiratory failure with hypoxia (8) CAD (coronary artery disease) Priority: Secondary Status: Chronic Qualifiers: Coronary Disease-Associated Artery/Lesion type: [place] artery [place] vs. transplanted heart: [place] heart Associated angina: without angina Qualified Code(s): I25.10 - Atherosclerotic heart disease of [place] coronary artery without angina pectoris Hospital course: Mr. Daniel is a 67 year old male - Time Spent with Patient Total time spent providing and/or coordinating discharge services: 38min Date of admission: 04/06/18 18:04 Primary care physician: PCP [facility] Consults: 04/07/18 22:08 Consult to Pulmonology [CONS] Routine Consulting Provider: [facility] Reason for Consult: pt. coughing up blood Call Completed: No 04/08/18 18:39 Consult to Pulmonology [CONS] Routine Consulting Provider: [facility] Reason for Consult: hemoptysis Call Completed: Yes - Constitutional Vitals: Temp Pulse Resp BP Pulse Ox 97.7 F 68 16 143/80 89 04/11/18 06:29 04/11/18 06:29 04/11/18 07:20 04/11/18 06:29 04/11/18 07:20 - Attending Attestation I examined this patient and my medical decision-making was reviewed with the Resident Physician on 04/11/18. I agree with the documented findings, disposition and treatment plan as described except to the extent set forth below. Mr Daniel has been admitted for pneumonia and hemoptysis. He has improved on IV abx. He is currently afebrile and feels ready for discharge home. He as not had hemoptysis in 48 hours. Exam Alert Comfortable Mucus membranes dry Heart reg No wheeze at this time Abd soft Plan D/C home Complete steroids Follow up with PCP.
== END 2018-04-11 10:32 | disposition home or self-care (01) | DRG 166 ==
LOC: 2SOUTHHOLD 02:22 → EMEROOARM 02:22 → SUATTDRO 05:47 → 2SOUTHHOLD 07:50 → 3BNU 04-06 06:17
PROVIDERS: ADMIT Pediatrics; ATTEND Internal Medicine

== ENCOUNTER 2018-05-01 15:32 | Inpatient (IN) ==
--- NOTE | 2018-05-01 17:52 | Internal Med History&Physical ---
Date of Encounter: 05/01/18 Time of Encounter: 19:00 Internal Medicine - H&P: HPI Chief complaint: Shortness of breath, productive cough with brownish sputum Admitted From: Emergency Dept Plans for Post Hospital Care: Home History of present illness: Mr. Daniel is a 67 year old male with past medical history of anoxic brain injury , diastolic CHF, COPD(on home oxygen 2 L), she was recently admitted to the hospital with hemoptysis tablespoons of blood and sputum which has been progressively getting worse.Initial workup old right lower lobe lung mass unchanged from the previous findings in the CT scan along with cavitation. Most recent bronchoscopy at [facility] showed that it was not malignant. He had a bronchoscopy here [facility] again which showed traceobronchomalacia and pneumonia. Patient's respiratory culture was positive for Escherichia coli. He was treated with Rocephin and azithromycin, patient stated he was doing fine for 2-3 weeks, over last a few days his condition has been getting worse , He complains of productive cough with brownish sputum ,worsening of shortness of breath, patient denies any fever or chills, patient denies any chest pain, patient denies any dizziness or lightheadedness, Past Med Surg Social Fam HX - Past Medical History Medical history: CHF, COPD, coronary artery disease, GERD, hypertension, pulmonary embolus, seizures, other Additional medical history: Agent orange exposure in [place]-lung damage. brain damage and tremors from episode of not breathing and on vent Psychiatric history: anxiety, bipolar - Past Surgical History Surgical History: appendectomy, tracheostomy, other Additional surgical history: tach. PEG tube - Social History Smoking Status: Former smoker Smokeless Tobacco Status: No Alcohol use: none Drug use: none - Family History Father Hx Family Cardiac Disorders: Yes Internal Medicine - H&P: Meds Aspirin 81 mg PO DAILY 01/17/16 [History] Atenolol 100 mg PO DAILY 01/17/16 [History] Docusate [Colace] 100 mg PO BID PRN 01/17/16 [History] Furosemide [Lasix] 20 mg PO DAILY 01/17/16 [History] GuaiFENesin/Dextromethorphan [Kro Child Mucus Rlf Cough Liq] 10 ml PO Q6H PRN [History] Guaifenesin 400 mg PO TID 01/17/16 [History] Ipratropium/Albuterol Sulfate [Combivent Respimat Inhal [place]] 1 puff IH QID [History] Ketoconazole Shampoo [Nizoral Shampoo] 1 appl TP AD PRN 01/17/16 [History] Primidone [Mysoline] 100 mg PO BID 01/17/16 [History] Sertraline [Zoloft] 200 mg PO DAILY 01/17/16 [History] amLODIPine [Norvasc] 10 mg PO DAILY 01/17/16 [History] Acetaminophen [Tylenol] 650 mg PO QID PRN 04/12/17 [History] Atorvastatin [Lipitor] 40 mg PO HS 04/12/17 [History] Baclofen [Lioresal] 5 mg PO TID 04/12/17 [History] Budesonide [Pulmicort Flexhaler 180mcg] 2 puff IH BID 04/12/17 [History] Cholecalciferol (D-3) [Vitamin D] 2,000 unit PO BID 04/12/17 [History] Divalproex (24 HR) [Depakote ER (24 HR)] 500 mg PO BID 04/12/17 [History] Ibuprofen [Motrin] 600 mg PO Q8HR PRN 04/12/17 [History] Ipratropium/Albuterol Neb [Duoneb] 3 ml IH Q6H PRN 04/12/17 [History] Lidocaine Patch [Lidoderm 5% patch] 2 each TP DAILY 04/12/17 [History] Lisinopril 5 mg PO DAILY 04/12/17 [History] Selenium Sulfide 1 appl TP Q72H 04/12/17 [History] Sennosides [Senna] 17.2 mg PO HS 04/12/17 [History] clonazePAM [Klonopin] 1 mg PO QID 04/12/17 [History] hydrOXYzine HCl [Hydroxyzine HCl] 50 mg PO HS PRN 04/12/17 [History] raNITIdine HCl [Zantac] 150 mg PO BID 04/12/17 [History] Bisacodyl [Dulcolax] 10 mg RC DAILY PRN supp.rect 04/15/17 [Rx] Haloperidol [Haldol] 5 mg PO Q6H PRN tablet 04/15/17 [Rx] Polyethylene Glycol 3350 [MiraLAX] 17 gm PO DAILY PRN powd.pack 04/15/17 [Rx] hydroCHLOROthiazide [Hydrochlorothiazide] 12.5 mg PO DAILY tablet 04/15/17 [Rx] levETIRAcetam [Keppra] 500 mg PO BID 04/05/18 [History] predniSONE [PredniSONE] See Taper PO DAILY #15 tablet 04/11/18 [Rx] 3 Allergy/AdvReac Type Severity Reaction Status Date / Time moxifloxacin Allergy Swelling Verified 01/28/16 17:07 of Lip/Tongue/Throat All Systems PM: A 10-system review of systems was performed and is negative for pertinent findings except as documented above in the HPI. - Constitutional Constitutional: no chills, no fever(s), no night sweats - EENT Nose, mouth and throat: no dysphagia, no nasal discharge, no neck pain, no sore throat - Cardiovascular Cardiovascular ROS IM: no chest pain, no diaphoresis, no dyspnea, no lightheadedness, no palpitations, no syncope - Respiratory Respiratory: cough, dyspnea, wheezing, change in phlegm color - Gastrointestinal Gastrointestinal: no abdominal pain, no diarrhea, no hematemesis, no hematochezia, no melena, no nausea, no vomiting - Musculoskeletal Musculoskeletal ROS IM: no numbness, no tingling - Neurological Neurological ROS: no confusion, no convulsions, no focal weakness, no numbness, no tingling, no tremor(s) - Constitutional Exam: As above - Head Head exam: Present: atraumatic, normocephalic - Neck Neck exam general surgery: Present: supple, trachea midline. Absent: lymphadenopathy - Respiratory Respiratory exam: Present: decreased breath sounds, prolonged expiratory phase, rales, wheezes. Absent: accessory muscle use - Cardiovascular Cardiovascular exam: Present: RRR, +S1, +S2. Absent: diastolic murmur, gallop, rubs, systolic murmur - GI/Abdominal GI/Abdominal exam: Present: normal bowel sounds, soft, no peritoneal signs. Absent: distended, tenderness - Extremities Exam Extremities exam: Present: warm, radial pulses palpable and symmetrical. Absent : calf tenderness, cyanotic, pedal edema - Skin Skin exam: Present: dry, intact - Assessment and plan (1) Respiratory distress Current Visit: No Status: Acute (2) Right lower lobe lung mass Current Visit: No Status: Acute (3) Shortness of breath Current Visit: No Status: Acute - Time Spent With Patient Looking at the patient cavitary lesion with crawling fungal and Escherichia coli , we will start patient on ceftriaxone and mifungin, case discussed with pulmonary may need further evaluation, we will check CBC BMP magnesium phosphorus, add Mucinex add aerosol treatment every 4 hours, check sputum culture, chest physical therapy, daily weight, close monitoring for volume overload, we will check BMP Total time spent is greater than 50% in coordination of care (as documented) at patient's floor/unit and/or counseling patient:
[2018-05-01] MEDS ORDERED: Naloxone 0.4 MG/ML INJ IVP PRN (19:22)
[2018-05-01] MEDS: Ipratropium/Albuterol Neb 3 ML IH SCH ×2 (20:16→23:51)
[2018-05-01] MEDS: cefTRIAXone 2,000 MG in Water for inj. (sterile) 20 ML 20 ML IVP SCH (20:23)
[2018-05-01] MEDS: Micafungin 100 MG in 0.9 % Sodium Chloride Mini Bag 100 ML IVPB SCH (20:24)
[2018-05-01] MEDS: Thiamine (B-1) 100 MG TABLET PO SCH (20:24)
[2018-05-01] MEDS ORDERED: hydrOXYzine pamoate 25 MG CAPSULE PO PRN (20:43)
[2018-05-01] MEDS ORDERED: Bisacodyl 10 MG RECTAL SUPPOSITORY RC PRN (20:43)
[2018-05-01] MEDS: Sennosides 8.6 MG TABLET PO SCH (23:04)
[2018-05-01] MEDS: Baclofen 10 MG TABLET PO SCH (23:05)
[2018-05-01] MEDS: levETIRAcetam 250 MG TABLET PO SCH (23:05)
[2018-05-01] MEDS: Cholecalciferol (D-3) 1,000 UNIT TABLET PO SCH (23:05)
[2018-05-01] MEDS: Divalproex (12 HR) 500 MG TABLET PO SCH (23:06)
[2018-05-01] MEDS: Primidone 50 MG TABLET PO SCH (23:06)
[2018-05-01] MEDS: clonazePAM 1 MG TABLET PO SCH (23:06)
[2018-05-01] MEDS: Famotidine 20 MG TABLET PO SCH (23:08)
[2018-05-01] MEDS: Beclomethasone 80mcg MDI IH SCH (23:46)
[2018-05-02 02:10] LABS: Basophils % 0.2 %; Eosinophils # 0.5 K/mcL (0.0-0.6); Eosinophils % 5.7 %; Hematocrit 31.7 % (37.5-50.1); Immature Granulocytes % 0.6 % (0-4); Lymphocytes # 1.5 K/mcL (0.6-4.6); Lymphocytes % 17.1 %; Mean Corpuscular HGB Conc 31.5 g/dL (31.6-35.5); Mean Corpuscular Hemoglobin 28.5 pg (28.0-33.3); Mean Corpuscular Volume 90.3 fL (83.0-100.0); Mean Platelet Volume 9.5 fL (9.4-12.4); Monocytes % 11.7 %; Neutrophils # 5.7 K/mcL (1.6-8.9); Platelet Count 209 K/mcL (140-400); Red Blood Count 3.51 M/mcL (4.19-5.50); Red Cell Distribution Width 14.5 % (11.5-14.5); Segmented Neutrophils % 64.7 %
[2018-05-02 02:32] LABS: BUN/Creatinine Ratio 34 (6-26); Blood Urea Nitrogen 32 mg/dL (8-23); Calcium 8.7 mg/dL (8.6-10.3); Carbon Dioxide 31 mEq/L (23-29); Chloride 102 mEq/L (98-107); Glucose 101 mg/dL (70-105); Magnesium 2.3 mg/dL (1.6-2.6); Osmolality,Calculated 297 (280-300); Potassium 3.6 mEq/L (3.5-5.1); Sodium 140 mEq/L (136-145); eGFR For Non-African Americans > 60 (> 60)
[2018-05-02] MEDS: Ipratropium/Albuterol Neb 3 ML IH SCH ×6 (04:21→23:42)
[2018-05-02] MEDS: Beclomethasone 80mcg MDI IH SCH ×2 (07:48→19:25)
[2018-05-02] MEDS: Furosemide 20 MG TABLET PO SCH (09:16)
[2018-05-02] MEDS: Cholecalciferol (D-3) 1,000 UNIT TABLET PO SCH ×2 (09:16→20:24)
[2018-05-02] MEDS: Primidone 50 MG TABLET PO SCH ×2 (09:17→20:24)
[2018-05-02] MEDS: Divalproex (12 HR) 500 MG TABLET PO SCH ×2 (09:17→20:25)
[2018-05-02] MEDS: levETIRAcetam 250 MG TABLET PO SCH ×2 (09:17→20:25)
[2018-05-02] MEDS: clonazePAM 1 MG TABLET PO SCH ×4 (09:17→20:25)
[2018-05-02] MEDS: Famotidine 20 MG TABLET PO SCH ×2 (09:17→16:01)
[2018-05-02] MEDS: amLODIPine 5 MG TABLET PO SCH (09:17)
[2018-05-02] MEDS: Aspirin 81 MG TAB.CHEW PO SCH (09:17)
[2018-05-02] MEDS: Baclofen 10 MG TABLET PO SCH ×3 (09:18→20:24)
[2018-05-02] MEDS: Thiamine (B-1) 100 MG TABLET PO SCH (09:18)
[2018-05-02] MEDS: Micafungin 100 MG in 0.9 % Sodium Chloride Mini Bag 100 ML IVPB SCH (09:19)
--- NOTE | 2018-05-02 09:30 | Pulmonology Consult Note ---
<Errol Pace M - Last Filed: 05/02/18 15:22> Date of Encounter: 05/02/18 Medications and Allergies Aspirin 81 mg PO DAILY 01/17/16 [History] Atenolol 100 mg PO DAILY 01/17/16 [History] Docusate [Colace] 100 mg PO BID PRN 01/17/16 [History] Furosemide [Lasix] 20 mg PO DAILY 01/17/16 [History] GuaiFENesin/Dextromethorphan [Kro Child Mucus Rlf Cough Liq] 10 ml PO Q6H PRN [History] Guaifenesin 400 mg PO TID 01/17/16 [History] Ipratropium/Albuterol Sulfate [Combivent Respimat Inhal Happy] 1 puff IH QID [History] Primidone [Mysoline] 100 mg PO BID 01/17/16 [History] Sertraline [Zoloft] 200 mg PO DAILY 01/17/16 [History] amLODIPine [Norvasc] 10 mg PO DAILY 01/17/16 [History] Acetaminophen [Tylenol] 650 mg PO QID PRN 04/12/17 [History] Atorvastatin [Lipitor] 40 mg PO HS 04/12/17 [History] Baclofen [Lioresal] 5 mg PO TID 04/12/17 [History] Cholecalciferol (D-3) [Vitamin D] 2,000 unit PO BID 04/12/17 [History] Divalproex (24 HR) [Depakote ER (24 HR)] 500 mg PO BID 04/12/17 [History] Ibuprofen [Motrin] 600 mg PO Q8HR PRN 04/12/17 [History] Ipratropium/Albuterol Neb [Duoneb] 3 ml IH Q6H PRN 04/12/17 [History] Lisinopril 5 mg PO DAILY 04/12/17 [History] Selenium Sulfide 1 appl TP Q72H 04/12/17 [History] Sennosides [Senna] 17.2 mg PO HS 04/12/17 [History] clonazePAM [Klonopin] 1 mg PO QID 04/12/17 [History] raNITIdine HCl [Zantac] 150 mg PO BID 04/12/17 [History] Polyethylene Glycol 3350 [MiraLAX] 17 gm PO DAILY PRN powd.pack 04/15/17 [Rx] levETIRAcetam [Keppra] 500 mg PO BID 04/05/18 [History] Melatonin [Melatin] 12 mg PO HS 05/02/18 [History] 3 Allergy/AdvReac Type Severity Reaction Status Date / Time moxifloxacin Allergy Swelling Verified 01/28/16 17:07 of Lip/Tongue/Throat All Systems: The remainder of the systems were reviewed and are negative Physical Examination Vital Signs: Vital Signs, Last 4 Hours Temp Pulse Resp BP Pulse Ox 05/02/18 07:36 18 95 05/02/18 07:21 96.8 F L 78 20 178/79 93 Results - Laboratory Findings CBC and BMP: 05/02/18 01:49 05/02/18 01:49 Abnormal lab findings: Abnormal lab results RBC 3.51 M/mcL (4.19-5.50) L 05/02/18 01:49 Hgb 10.0 g/dL (12.9-16.9) L 05/02/18 01:49 Hct 31.7 % (37.5-50.1) L 05/02/18 01:49 MCHC 31.5 g/dL (31.6-35.5) L 05/02/18 01:49 Carbon Dioxide 31 mEq/L (23-29) H 05/02/18 01:49 BUN 32 mg/dL (8-23) H 05/02/18 01:49 BUN/Creatinine Ratio 34 (6-26) H 05/02/18 01:49 - Clinical Findings Intake & Output: Intake & Output 05/01/18 05/02/18 05/02/18 23:59 07:59 15:59 Intake Total 360 / 360 0 / 0 Output Total 125 / 125 300 / 300 Balance 235 / 235 -300 / -300 0 / 0 Weight 109 kg 106.4 kg Consult Discharge Plan - Plan [facility]errals: [facility] [Primary Care Provider] - - Attending Attestation I examined this patient and my medical decision-making was reviewed with the Resident Physician. I agree with the documented findings, disposition and treatment plan as described except to the extent set forth below. Patient seen and examined. Labs, radiology, chart personally reviewed. 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 Patient is poor historian and more information. I have discussed with the nurse was taking care of patient last night and there is no evidence of hemoptysis. Patient had bronchoscopy in the past and also biopsy of that lesion and he was supposed to have a follow-up as outpatient. I am still awaiting images and if by tomorrow we do not receive it it will be better to repeat a CT chest and have further recommendations. There is a possibility patient could have chronic aspiration mainly with his mental status and speech evaluation is recommended. Thank you for consultation we will continue follow-up. <Nikolai Lobato - Last Filed: 05/02/18 15:32> Date of Encounter: 05/02/18 Time of Encounter: 09:30 Assessment and Plan (1) Acute and chronic respiratory failure with hypoxia Current Visit: Yes Status: Acute - likely due to his Hx of COPD. patient is on 3 LofO2 at home he endorses that he did feel the need to increase his home O2 requirement. patient also endorses worsening cough and productive sputum that made him go to [facility]. \ - pn physical exam he has b/l wheezing but no rales or ronchi appreciated. - currently on duonebs PRN, satting at 97% on 2L NC - titrrate oxygen as needed to keep sPO2 >88% (2) COPD (chronic obstructive pulmonary disease) Current Visit: Yes Status: Acute -Patient has a history of COPD. Heavy smoker but quit 9 years ago. he'son Symbcort and Combivant as his home meds -doesn't seem to be an exacerbation so we will hold off on the methylprednisone for now - Currently satting in room air 91%. use oxygen as needed to keep SpO2 > 88%. Qualifiers: Qualified Code(s): J44.9 - Chronic obstructive pulmonary disease, unspecified (3) Right lower lobe lung mass Current Visit: No Status: Acute -Has a known right lower lobe mass observed in the ED during his last admission (04/05) which was unchanged from before 01/29/2017. - during his last admission for hemoptysis, patient had a bronchisocpy done and no source was found for the bleeding and he was found to have bronchomalacia and pneumonia was was treated with Zpack and Rocephin. However, he only had 1-2 episodes of 2-3 teaspoons of hemoptysis, whcih had stopped on day 3 of his admission. patient underwent bronchoscopy at [facility] a few months ago and it appears that the lesion was non-malignant. We have requested the records from [facility]. - further workup will depend on browsing through those requested records from [facility] History of Present Illness Consult date: 05/02/18 Chief complaint: shortness of breath History of present illness: This is a 67 y.o male with a PMHx of COPD (on 2L at home) , anoxic brain injury who was admitted to the hospital floor because of its of shortness of breath and productive cough. Patient takes Symbicort and Combivent at home for his COPD He denies being sick recently or exposed to anyone who is sick at home. However he does endorse having increase in frequency of cough and productive sputum for the last few days which made him come to the [facility] and was eventually transferred to [facility]. Pulmonology was consulted because patient has a chronic right lower lobe mass which was cavitary in nature as of last CT in March 2018. The lesion had unchanged from 2016. Currently awaiting records from [facility] Past Med Surg Social Fam HX - Past Medical History Medical history: CHF, COPD, coronary artery disease, GERD, hypertension, pulmonary embolus, seizures, other Additional medical history: Agent orange exposure in [place]-lung damage. brain damage and tremors from episode of not breathing and on vent Psychiatric history: anxiety, bipolar - Past Surgical History Surgical History: appendectomy, tracheostomy, other Additional surgical history: tach. PEG tube - Social History Smoking Status: Former smoker Smokeless Tobacco Status: No Alcohol use: none Drug use: none - Family History Father Hx Family Cardiac Disorders: Yes All Systems: The remainder of the systems were reviewed and are negative Physical Examination Vital Signs: Vital Signs, Last 4 Hours Temp Pulse Resp BP Pulse Ox 05/02/18 07:36 18 95 05/02/18 07:21 96.8 F L 78 20 178/79 93 General appearance: no acute distress Effort: normal Auscultation: bilateral: wheezes Cardiovascular: regular rate and rhythm Gastrointestinal: soft, non-tender, non-distended Extremities: no cyanosis, no edema, no clubbing Results - Laboratory Findings CBC and BMP: 05/02/18 01:49 05/02/18 01:49 Abnormal lab findings: Abnormal lab results RBC 3.51 M/mcL (4.19-5.50) L 05/02/18 01:49 Hgb 10.0 g/dL (12.9-16.9) L 05/02/18 01:49 Hct 31.7 % (37.5-50.1) L 05/02/18 01:49 MCHC 31.5 g/dL (31.6-35.5) L 05/02/18 01:49 Carbon Dioxide 31 mEq/L (23-29) H 05/02/18 01:49 BUN 32 mg/dL (8-23) H 05/02/18 01:49 BUN/Creatinine Ratio 34 (6-26) H 05/02/18 01:49 - Clinical Findings Intake & Output: Intake & Output 05/01/18 05/02/18 05/02/18 23:59 07:59 15:59 Intake Total 360 / 360 Output Total 125 / 125 300 / 300 Balance 235 / 235 -300 / -300 Weight 109 kg 106.4 kg
--- NOTE | 2018-05-02 18:32 | Internal Med Progress Note ---
Hospitalist Progress Note - Encounter Date of Encounter: 05/02/18 Time of Encounter: 20:22 - Subjective Interval History: Pt states RLL mass was biopsied and he was informed was non-malignant. Bronch was done at [facility]. Pt admitted for hemoptysis. Pulmonology on board. CT chest 04/05/2018 showed central cavitation which had increased at that time. Pt is s/p bronch during his last admission for hemoptysis and was found to have bronchomalacia and PNA treated with Z pack and Rocephin. Pulmonology requesting more records from [facility] for further eval/ management - Exam Vitals: Temp Pulse Resp BP Pulse Ox 98.5 F 77 17 151/77 94 05/02/18 16:24 05/02/18 16:24 05/02/18 16:24 05/02/18 16:24 05/02/18 16:24 Exam: Exam: As above - Head Head exam: Present: atraumatic, normocephalic - Neck Neck exam general surgery: Present: supple, trachea midline. Absent: lymphadenopathy - Respiratory Respiratory exam: Present: decreased breath sounds, prolonged expiratory phase, rales, and expiratory wheezes. Absent: accessory muscle use - Cardiovascular Cardiovascular exam: Present: RRR, +S1, +S2. Absent: diastolic murmur, gallop, rubs, systolic murmur - GI/Abdominal GI/Abdominal exam: Present: normal bowel sounds, soft, no peritoneal signs. Absent: distended, tenderness - Extremities Exam Extremities exam: Present: warm, radial pulses palpable and symmetrical. Absent : calf tenderness, cyanotic, pedal edema - Skin Skin exam: Present: dry, intact - Assessment and Plan (1) Respiratory distress Current Visit: No Status: Acute Assessment and Plan: Pt is on 3L NC at home. he presents with hemptysis. Pt also reported worsening productive cough. Continue on Duo nebs, oxygen, Rocephin, and Micafungin. Not on steroids at this time. (2) Shortness of breath Current Visit: No Status: Acute Assessment and Plan: Pt sating 95% on 2L NC and tolerating. Will continue to monitor. (3) Right lower lobe lung mass Current Visit: No Status: Acute (4) COPD (chronic obstructive pulmonary disease) Current Visit: Yes Status: Acute Assessment and Plan: -Patient has a history of COPD. Heavy smoker but quit 9 years ago. he's on Symbcort and Combivant as his home meds -doesn't seem to be an exacerbation so we will hold off on the methylprednisone for now - Currently satting in room air 91%. use oxygen as needed to keep SpO2 > 90%. DVT Prophylaxis: TEDs - Summary of Assessment and Plan Summary of Assessment and Plan: Mr. Daniel is a 67 year old male with past medical history of anoxic brain injury , diastolic CHF, COPD(on home oxygen 2 L), she was recently admitted to the hospital with hemoptysis tablespoons of blood and sputum which has been progressively getting worse.Initial workup old right lower lobe lung mass unchanged from the previous findings in the CT scan along with cavitation. Most recent bronchoscopy at [facility] showed that it was not malignant. He had a bronchoscopy here [facility] again which showed traceobronchomalacia and pneumonia. Patient's respiratory culture was positive for Escherichia coli. He was treated with Rocephin and azithromycin, patient stated he was doing fine for 2-3 weeks, over last a few days his condition has been getting worse , He complains of productive cough with brownish sputum ,worsening of shortness of breath, patient denies any fever or chills, patient denies any chest pain, patient denies any dizziness or lightheadedness, - Time Spent with Patient Total time spent is greater than 50% in coordination of care (as documented) at patient's floor/unit and/or counseling patient: less than 15 minutes Plan of Care Discussed with: patient Internal Medicine: Result - Labs CBC & Chem 7: 05/02/18 01:49 05/02/18 01:49 Labs: Short CBC 05/02/18 Range/Units 01:49 WBC 8.8 (4.3-11.1) K/mcL Hgb 10.0 L (12.9-16.9) g/dL Hct 31.7 L (37.5-50.1) % Plt Count 209 (140-400) K/mcL Neutrophils # 5.7 (1.6-8.9) K/mcL BMP 05/02/18 01:49 Sodium 140 Potassium 3.6 Chloride 102 Carbon Dioxide 31 H BUN 32 H Creatinine 0.95 Glucose 101 Calcium 8.7 Cardiac Enzymes 05/01/18 05/02/18 05/02/18 Range/Units 19:49 01:49 07:32 Troponin I < 0.03 < 0.03 < 0.03 (< 0.04) ng/mL - VTE Documentation of Mechanical Device: Graduated compression elastic hosiery Consult Discharge Plan - Plan Referrals: [facility],PCP [Primary Care Provider] - (4) COPD (chronic obstructive pulmonary disease) Qualifiers: Qualified Code(s): J44.9 - Chronic obstructive pulmonary disease, unspecified
[2018-05-02] MEDS ORDERED: Acetaminophen 325 MG TABLET PO PRN (19:32)
[2018-05-02] MEDS: Sennosides 8.6 MG TABLET PO SCH (20:24)
[2018-05-02] MEDS: cefTRIAXone 2,000 MG in Water for inj. (sterile) 20 ML 20 ML IVP SCH (20:25)
[2018-05-03] MEDS: Ipratropium/Albuterol Neb 3 ML IH SCH ×4 (04:00→21:22)
[2018-05-03] MEDS: Beclomethasone 80mcg MDI IH SCH ×2 (07:38→21:22)
--- NOTE | 2018-05-03 08:29 | Pulmonology Progress Note ---
<Errol Pace - Last Filed: 05/03/18 13:38> Date of Encounter: 05/03/18 Objective PUL Vital signs: Last Vital Signs Temp 97.4 F L 05/03/18 07:57 Pulse 77 05/03/18 07:57 Resp 18 05/03/18 07:57 BP 158/81 05/03/18 07:57 Pulse Ox 96 05/03/18 07:57 Results - Laboratory Findings CBC and BMP: 05/02/18 01:49 05/02/18 01:49 Abnormal lab findings: Abnormal lab results RBC 3.51 M/mcL (4.19-5.50) L 05/02/18 01:49 Hgb 10.0 g/dL (12.9-16.9) L 05/02/18 01:49 Hct 31.7 % (37.5-50.1) L 05/02/18 01:49 MCHC 31.5 g/dL (31.6-35.5) L 05/02/18 01:49 Carbon Dioxide 31 mEq/L (23-29) H 05/02/18 01:49 BUN 32 mg/dL (8-23) H 05/02/18 01:49 BUN/Creatinine Ratio 34 (6-26) H 05/02/18 01:49 - Microbiology Findings Microbiology Findings: Microbiology, Last 48 Hours 05/02/18 10:00 Sputum Culture - Preliminary Sputum - Clinical Findings Intake & Output: Intake & Output 05/02/18 05/03/18 05/03/18 23:59 07:59 15:59 Intake Total 20 / 20 200 / 200 Output Total 200 / 200 300 / 300 175 / 175 Balance -180 / -180 -100 / -100 -175 / -175 Weight 106.2 kg Consult Discharge Plan - Plan Referrals: [facility],PCP [Primary Care Provider] - - Attending Attestation I examined this patient and my medical decision-making was reviewed with the Resident Physician. I agree with the documented findings, disposition and treatment plan as described except to the extent set forth below. Patient seen and examined. Labs, radiology, chart personally reviewed. 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 Patient had full workup for patient at this facility and at [facility] with biopsy. I would recommend the same recommendation as before, workup for possible aspiration and speech evaluation and follow-up workup as outpatient. CT chest in 2-3 months on the chest x-ray had. Physical for any questions. <Nikolai Lobato - Last Filed: 05/03/18 15:57> Date of Encounter: 05/03/18 Time of Encounter: 09:15 Assessment and Plan (1) COPD (chronic obstructive pulmonary disease) Current Visit: Yes Status: Acute -Patient has a history of COPD. Heavy smoker but quit 9 years ago. he'son Symbcort and Combivant as his home meds -doesn't seem to be an exacerbation so we will hold off on the methylprednisone for now - Currently satting in room air 91%. use oxygen as needed to keep SpO2 > 88%. (2) Right lower lobe lung mass Current Visit: No Status: Acute -Has a known right lower lobe mass observed in the ED during his last admission (04/05) which was unchanged from before 01/29/2017. -Underwent bronchoscopy in October at [facility], was positive for plugging and mediastinal adenopathy. He also has some narrowing in the upper trachea. findings were suspicious for aspiration of foreign body with no evidence of malignancy - during his last admission for hemoptysis, patient had a bronchisocpy done and no source was found for the bleeding and he was found to have bronchomalacia and pneumonia was was treated with Zpack and Rocephin. - patient has been recommended to follow up with pulmonology as an outpatient for further workup like a CT scan in 2-3 months. (3) Respiratory distress Current Visit: No Status: Acute - likely due to his Hx of COPD and likely contribution of right lower lobe mass. patient is on 3 LofO2 at home he endorses that he did feel the need to increase his home O2 requirement. patient also endorses worsening cough and productive sputum that made him go to [facility]. \ - on physical exam he has b/l wheezing but no rales or ronchi appreciated. - currently on duonebs PRN, satting at 97% on 2L NC - titrate oxygen as needed to keep sPO2 >88% Objective PUL Vital signs: Last Vital Signs Temp 97.4 F L 05/03/18 07:57 Pulse 77 05/03/18 07:57 Resp 18 05/03/18 07:57 BP 158/81 05/03/18 07:57 Pulse Ox 96 05/03/18 07:57 Results - Laboratory Findings CBC and BMP: 05/02/18 01:49 05/02/18 01:49 Abnormal lab findings: Abnormal lab results RBC 3.51 M/mcL (4.19-5.50) L 05/02/18 01:49 Hgb 10.0 g/dL (12.9-16.9) L 05/02/18 01:49 Hct 31.7 % (37.5-50.1) L 05/02/18 01:49 MCHC 31.5 g/dL (31.6-35.5) L 05/02/18 01:49 Carbon Dioxide 31 mEq/L (23-29) H 05/02/18 01:49 BUN 32 mg/dL (8-23) H 05/02/18 01:49 BUN/Creatinine Ratio 34 (6-26) H 05/02/18 01:49 - Microbiology Findings Microbiology Findings: Microbiology, Last 48 Hours 05/02/18 10:00 Sputum Culture - Preliminary Sputum - Clinical Findings Intake & Output: Intake & Output 05/02/18 05/03/18 05/03/18 23:59 07:59 15:59 Intake Total 20 / 20 200 / 200 Output Total 200 / 200 300 / 300 Balance -180 / -180 -100 / -100 Weight 106.2 kg - VTE Documentation of Mechanical Device: Graduated compression elastic hosiery
[2018-05-03] MEDS: Furosemide 20 MG TABLET PO SCH (10:21)
[2018-05-03] MEDS: Thiamine (B-1) 100 MG TABLET PO SCH (10:21)
[2018-05-03] MEDS: Divalproex (12 HR) 500 MG TABLET PO SCH ×2 (10:21→20:51)
[2018-05-03] MEDS: Baclofen 10 MG TABLET PO SCH ×3 (10:21→20:51)
[2018-05-03] MEDS: levETIRAcetam 250 MG TABLET PO SCH ×2 (10:21→20:51)
[2018-05-03] MEDS: Cholecalciferol (D-3) 1,000 UNIT TABLET PO SCH ×2 (10:21→20:50)
[2018-05-03] MEDS: clonazePAM 1 MG TABLET PO SCH ×4 (10:22→20:51)
[2018-05-03] MEDS: amLODIPine 5 MG TABLET PO SCH (10:22)
[2018-05-03] MEDS: Aspirin 81 MG TAB.CHEW PO SCH (10:22)
[2018-05-03] MEDS: Primidone 50 MG TABLET PO SCH ×2 (10:23→20:51)
[2018-05-03] MEDS: Famotidine 20 MG TABLET PO SCH ×2 (10:36→16:16)
[2018-05-03] MEDS ORDERED: Ipratropium/Albuterol Neb 3 ML IH STA (13:21)
--- NOTE | 2018-05-03 16:40 | Internal Med Progress Note ---
Hospitalist Progress Note - Encounter Date of Encounter: 05/03/18 Time of Encounter: 09:30 - Subjective Interval History: patient was seen and examined at bedside. reports difficulty swallowing his breakfast adn says "it slips" when asked about his tremors her reports concepcion he has had them for years. he denies hemoptysis since being admitted to [facility]. denies N/v/D reports that his cough is better. pain is controlled. denies chest pain or palpitations. - Exam Vitals: Temp Pulse Resp BP Pulse Ox 97.4 F L 77 24 158/81 96 05/03/18 07:57 05/03/18 07:57 05/03/18 13:59 05/03/18 07:57 05/03/18 13:59 Exam: General: Patient is alert, oriented, no acute distress, obese, speaks in full sentences Head: atraumatic, normocephalic, Eye: normal appearance, PERRL, no scleral icterus, no conjunctival injection ENT: mucous membranes moist, normal external ear exam Neck: normal inspection, trachea midline, full ROM, no carotid bruits Chest: normal inspection, symmetric chest rise Respiratory: decreased breath sounds secondary to body habitus, no wheezing , has occasional crackles at MAL bilaterally. Cardiovascular: Regular rate and rhythm. s1 and s2 No clicks, rubs, gallops, or murmors. Abdomen: Bowel sounds present normoactive x-4 quadrants. Abdomen is soft, nondistended. no Epigastric tenderness. No guarding or rebound. No organomegaly noted, obese musculoskeletal: Spontaneously moving all extremities. no edema, no calf tenderness Skin: warm, dry, intact. Neuro: Alert and oriented x4. Sensation light touch intact. Cranial nerves 2- 12 is intact. Not aphasic, has resting tremor Psych: Patient's affect is normal - Assessment and Plan (1) COPD (chronic obstructive pulmonary disease) Current Visit: Yes Status: Acute Assessment and Plan: does not seem to be in acute exacerbation ( no wheezing on exam) will hold off of steroids for now continue Duonebs, beclomethasone (2) Respiratory distress Current Visit: No Status: Acute Assessment and Plan: most likely secondary to COPD and ? 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 -Underwent bronchoscopy in October at [facility], was positive for plugging and mediastinal adenopathy. He also has some narrowing in the upper trachea. findings were suspicious for aspiration of foreign body with no evidence of malignancy during his last admission for hemoptysis, patient had a bronchosocpy done and no source was found for the bleeding and he was found to have bronchomalacia and pneumonia was was treated with Zpack and Rocephin. currently no evidence of hemoptysis since admission- H/H stable around baseline patient has been recommended to follow up with pulmonology as an outpatient for further workup like a CT scan in 2-3 months. (4) Dysphagia Current Visit: Yes Status: Acute Assessment and Plan: r d intern consulted - will need MBS assist with feeding elevated HOB strict aspiration precautions (5) DVT prophylaxis Current Visit: No Status: Acute Assessment and Plan: scds - Time Spent with Patient Total time spent is greater than 50% in coordination of care (as documented) at patient's floor/unit and/or counseling patient: Internal Medicine: Result - Labs CBC & Chem 7: 05/02/18 01:49 05/02/18 01:49 - VTE Documentation of Mechanical Device: Graduated compression elastic hosiery Consult Discharge Plan - Plan Referrals: [facility],PCP [Primary Care Provider] - (1) COPD (chronic obstructive pulmonary disease) Qualifiers: Qualified Code(s): J44.9 - Chronic obstructive pulmonary disease, unspecified
[2018-05-03] MEDS: Ampicillin/Sulbactam 3,000 MG in 0.9 % Sodium Chloride Mini Bag 100 ML IVPB SCH ×2 (17:44→23:45)
--- NOTE | 2018-05-03 18:27 | Electrocardiograph Report ---
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
[2018-05-03] MEDS: GuaiFENesin Liq 200 MG/10 ML UDC PO SCH ×2 (20:50→20:53)
[2018-05-03] MEDS: Sennosides 8.6 MG TABLET PO SCH (20:50)
[2018-05-03] MEDS: Melatonin 3 MG TABLET PO SCH (20:52)
[2018-05-04] MEDS: Ipratropium/Albuterol Neb 3 ML IH SCH ×4 (04:09→21:46)
[2018-05-04] MEDS: Ampicillin/Sulbactam 3,000 MG in 0.9 % Sodium Chloride Mini Bag 100 ML IVPB SCH ×3 (05:30→18:08)
--- NOTE | 2018-05-04 09:25 | Pulmonology Progress Note ---
Date of Encounter: 05/04/18 Assessment and Plan (1) COPD (chronic obstructive pulmonary disease) Current Visit: Yes Status: Acute -Patient has a history of COPD. Heavy smoker but quit 9 years ago. he'son Symbcort and Combivant as his home meds -doesn't seem to be an exacerbation so we will hold off on the methylprednisone for now - Currently satting in room air 91%. use oxygen as needed to keep SpO2 > 88%. (2) Right lower lobe lung mass Current Visit: No Status: Acute -Has a known right lower lobe mass observed in the ED during his last admission (04/05) which was unchanged from before 01/29/2017. -Underwent bronchoscopy in October at [facility], was positive for plugging and mediastinal adenopathy. He also has some narrowing in the upper trachea. findings were suspicious for aspiration of foreign body with no evidence of malignancy - during his last admission for hemoptysis, patient had a bronchisocpy done and no source was found for the bleeding and he was found to have bronchomalacia and pneumonia was was treated with Zpack and Rocephin. - patient has been recommended to follow up with pulmonology as an outpatient for further workup like a CT scan in 2-3 months. (3) Respiratory distress Current Visit: No Status: Acute - likely due to his Hx of COPD and likely contribution of right lower lobe mass. patient is on 3 LofO2 at home he endorses that he did feel the need to increase his home O2 requirement. patient also endorses worsening cough and productive sputum that made him go to [facility]. \ - on physical exam he has b/l wheezing but no rales or ronchi appreciated. - currently on duonebs PRN, satting at 97% on 2L NC - titrate oxygen as needed to keep sPO2 >88% Objective PUL Vital signs: Last Vital Signs Temp 98.4 F 05/04/18 07:26 Pulse 72 05/04/18 07:26 Resp 20 05/04/18 07:26 BP 126/78 05/04/18 07:26 Pulse Ox 91 05/04/18 07:26 Results - Laboratory Findings CBC and BMP: 05/02/18 01:49 05/02/18 01:49 Abnormal lab findings: Abnormal lab results RBC 3.51 M/mcL (4.19-5.50) L 05/02/18 01:49 Hgb 10.0 g/dL (12.9-16.9) L 05/02/18 01:49 Hct 31.7 % (37.5-50.1) L 05/02/18 01:49 MCHC 31.5 g/dL (31.6-35.5) L 05/02/18 01:49 Carbon Dioxide 31 mEq/L (23-29) H 05/02/18 01:49 BUN 32 mg/dL (8-23) H 05/02/18 01:49 BUN/Creatinine Ratio 34 (6-26) H 05/02/18 01:49 - Microbiology Findings Microbiology Findings: Microbiology, Last 48 Hours 05/02/18 10:00 Sputum Culture - Preliminary Sputum - Clinical Findings Intake & Output: Intake & Output 05/03/18 05/04/18 05/04/18 23:59 07:59 15:59 Intake Total 100 / 100 275 / 275 Output Total 600 / 600 200 / 200 Balance -500 / -500 75 / 75 Weight 105.64 kg - VTE Documentation of Mechanical Device: Graduated compression elastic hosiery Consult Discharge Plan - Plan [facility]errals: [facility] [Primary Care Provider] -
[2018-05-04 10:09] LABS: Hematocrit 34.2 % (37.5-50.1); Hemoglobin 10.7 g/dL (12.9-16.9); Mean Corpuscular HGB Conc 31.3 g/dL (31.6-35.5); Mean Corpuscular Hemoglobin 28.4 pg (28.0-33.3); Mean Corpuscular Volume 90.7 fL (83.0-100.0); Mean Platelet Volume 9.8 fL (9.4-12.4); Platelet Count 233 K/mcL (140-400); Red Blood Count 3.77 M/mcL (4.19-5.50); Red Cell Distribution Width 14.5 % (11.5-14.5)
[2018-05-04] MEDS: Beclomethasone 80mcg MDI IH SCH ×2 (10:19→21:46)
[2018-05-04 12:18] LABS: BUN/Creatinine Ratio 19 (6-26); Blood Urea Nitrogen 15 mg/dL (8-23); Calcium 8.8 mg/dL (8.6-10.3); Carbon Dioxide 26 mEq/L (23-29); Chloride 105 mEq/L (98-107); Glucose 93 mg/dL (70-105); Osmolality,Calculated 289 (280-300); Potassium 3.9 mEq/L (3.5-5.1); Sodium 139 mEq/L (136-145); eGFR For Non-African Americans > 60 (> 60)
[2018-05-04] MEDS: Famotidine 20 MG TABLET PO SCH ×2 (12:34→17:51)
[2018-05-04] MEDS: Baclofen 10 MG TABLET PO SCH ×3 (12:35→22:14)
[2018-05-04] MEDS: clonazePAM 1 MG TABLET PO SCH ×4 (12:35→20:33)
[2018-05-04] MEDS: GuaiFENesin Liq 200 MG/10 ML UDC PO SCH ×3 (12:35→22:15)
--- NOTE | 2018-05-04 13:25 | Internal Med Progress Note ---
Hospitalist Progress Note - Encounter Date of Encounter: 05/04/18 Time of Encounter: 08:00 - Subjective Interval History: patient was seen and examined at bedside. he denies hemoptysis, denies N/v/D reports that his cough is better. pain is controlled. denies chest pain or palpitations. - Exam Vitals: Temp Pulse Resp BP Pulse Ox 98.4 F 72 20 126/78 91 05/04/18 07:26 05/04/18 07:26 05/04/18 10:21 05/04/18 07:26 05/04/18 10:21 Exam: General: Patient is alert, oriented, no acute distress, obese, speaks in full sentences, raspy voice Head: atraumatic, normocephalic, Eye: normal appearance, PERRL, no scleral icterus, no conjunctival injection ENT: mucous membranes moist, normal external ear exam Neck: normal inspection, trachea midline, full ROM, no carotid bruits Chest: normal inspection, symmetric chest rise Respiratory: decreased breath sounds secondary to body habitus, no wheezing , has occasional crackles at MAL bilaterally. Cardiovascular: Regular rate and rhythm. s1 and s2 No clicks, rubs, gallops, or murmors. Abdomen: Bowel sounds present normoactive x-4 quadrants. Abdomen is soft, nondistended. no Epigastric tenderness. No guarding or rebound. No organomegaly noted, obese musculoskeletal: Spontaneously moving all extremities. no edema, no calf tenderness Skin: warm, dry, intact. Neuro: Alert and oriented x4. Sensation light touch intact. Cranial nerves 2- 12 is intact. Not aphasic, has resting tremor Psych: Patient's affect is normal - Assessment and Plan (1) Right lower lobe lung mass Current Visit: No Status: Acute Assessment and Plan: Has a known right lower lobe mass observed in the ED during his last admission ( 04/05) which was unchanged from before 01/29/2017. -Underwent bronchoscopy in October at [facility], was positive for plugging and mediastinal adenopathy. He also has some narrowing in the upper trachea. findings were suspicious for aspiration of foreign body with no evidence of malignancy during his last admission for hemoptysis, patient had a bronchosocpy done and no source was found for the bleeding and he was found to have bronchomalacia and pneumonia was was treated with Zpack and Rocephin. currently no evidence of hemoptysis since admission- H/H stable around baseline patient has been recommended to follow up with pulmonology as an outpatient for further workup like a CT scan in 2-3 months. on unasyn for ?aspiration (2) Dysphagia Current Visit: Yes Status: Acute Assessment and Plan: photoengraving helper consulted - \MBS scheduled will follow results assist with feeding elevated HOB strict aspiration precautions (3) COPD (chronic obstructive pulmonary disease) Current Visit: Yes Status: Acute Assessment and Plan: does not seem to be in acute exacerbation ( no wheezing on exam) will hold off of steroids for now continue Duonebs, beclomethasone (4) Respiratory distress Current Visit: No Status: Acute Assessment and Plan: most likely secondary to COPD and ? aspiration - now resolved on unasyn CLICKER OPERATOR was consulted - most likely will need MBS assist with feedings elevated head of bed rest of the management as per above keep O2 sats > 92% will follow sputum cx (5) DVT prophylaxis Current Visit: No Status: Acute Assessment and Plan: scds - Time Spent with Patient Total time spent is greater than 50% in coordination of care (as documented) at patient's floor/unit and/or counseling patient: Internal Medicine: Result - Labs CBC & Chem 7: 05/04/18 09:08 05/04/18 09:08 Labs: Short CBC 05/04/18 Range/Units 09:08 WBC 10.7 (4.3-11.1) K/mcL Hgb 10.7 L (12.9-16.9) g/dL Hct 34.2 L (37.5-50.1) % Plt Count 233 (140-400) K/mcL BMP 05/04/18 09:08 Sodium 139 Potassium 3.9 Chloride 105 Carbon Dioxide 26 BUN 15 Creatinine 0.77 Glucose 93 Calcium 8.8 - VTE Documentation of Mechanical Device: Graduated compression elastic hosiery Consult Discharge Plan - Plan [facility]errals: [facility] [Primary Care Provider] - (3) COPD (chronic obstructive pulmonary disease) Qualifiers: Qualified Code(s): J44.9 - Chronic obstructive pulmonary disease, unspecified
[2018-05-04] MEDS: Cholecalciferol (D-3) 1,000 UNIT TABLET PO SCH ×2 (16:15→20:33)
[2018-05-04] MEDS: levETIRAcetam 250 MG TABLET PO SCH ×2 (16:15→20:33)
[2018-05-04] MEDS: Primidone 50 MG TABLET PO SCH ×2 (16:15→20:33)
[2018-05-04] MEDS: Divalproex (12 HR) 500 MG TABLET PO SCH ×2 (16:15→20:33)
[2018-05-04] MEDS: amLODIPine 5 MG TABLET PO SCH (17:53)
[2018-05-04] MEDS: Aspirin 81 MG TAB.CHEW PO SCH (17:53)
[2018-05-04] MEDS: Furosemide 20 MG TABLET PO SCH (17:53)
[2018-05-04] MEDS: Thiamine (B-1) 100 MG TABLET PO SCH (17:54)
[2018-05-04] MEDS: Melatonin 3 MG TABLET PO SCH (20:33)
[2018-05-04] MEDS: Sennosides 8.6 MG TABLET PO SCH (20:34)
[2018-05-05] MEDS: Ipratropium/Albuterol Neb 3 ML IH SCH ×2 (03:45→10:57)
[2018-05-05] MEDS: Famotidine 20 MG TABLET PO SCH (06:55)
[2018-05-05] MEDS: clonazePAM 1 MG TABLET PO SCH ×2 (09:04→13:16)
[2018-05-05] MEDS: Primidone 50 MG TABLET PO SCH (09:04)
[2018-05-05] MEDS: Divalproex (12 HR) 500 MG TABLET PO SCH (09:04)
[2018-05-05] MEDS: levETIRAcetam 250 MG TABLET PO SCH (09:04)
[2018-05-05] MEDS: Thiamine (B-1) 100 MG TABLET PO SCH (09:04)
[2018-05-05] MEDS: Aspirin 81 MG TAB.CHEW PO SCH (09:04)
[2018-05-05] MEDS: amLODIPine 5 MG TABLET PO SCH (09:04)
[2018-05-05] MEDS: Cholecalciferol (D-3) 1,000 UNIT TABLET PO SCH (09:05)
[2018-05-05] MEDS: Baclofen 10 MG TABLET PO SCH ×2 (09:05→14:11)
[2018-05-05] MEDS: GuaiFENesin Liq 200 MG/10 ML UDC PO SCH ×2 (09:06→14:13)
[2018-05-05] MEDS: Furosemide 20 MG TABLET PO SCH (09:06)
--- NOTE | 2018-05-05 10:50 | Discharge Summary ---
- NOTES TO OUTPATIENT PROVIDER Notes to Outpatient Provider: follow up with PCP and pulmonology as OP - CT scan chest in 2-3 months. needs to have speech therapy as OP set up Date of Encounter: 05/05/18 Time of Encounter: 10:43 - Discharge Diagnosis (1) Dysphagia Priority: Primary Status: Acute Qualifiers: Dysphagia type: oropharyngeal phase Qualified Code(s): R13.12 - Dysphagia, oropharyngeal phase (2) Right lower lobe lung mass Priority: Secondary Status: Acute (3) COPD (chronic obstructive pulmonary disease) Priority: Secondary Status: Acute Qualifiers: COPD type: unspecified COPD Qualified Code(s): J44.9 - Chronic obstructive pulmonary disease, unspecified (4) Respiratory distress Priority: Secondary Status: Acute (5) DVT prophylaxis Priority: Secondary Status: Acute Hospital course: Mr. Daniel is a 67 year old male with history of anoxic brain injury, diastolic CHF, COPD(on home oxygen 2 L), she was recently admitted to the hospital with hemoptysis tablespoons of blood and sputum which has been progressively getting worse. he was admitted for further evaluation of the hemoptysis and sputum production. He remained afebrile while hospitalized, vitals remained stable, did not produce any blood tinged sputum during hospitalization. Pulmonology was consulted and recommendations were followed. Has a known right lower lobe mass observed in the ED during his last admission ( 04/05) which was unchanged from before 01/29/2017. Underwent bronchoscopy in October at [facility], was positive for plugging and mediastinal adenopathy. He also has some narrowing in the upper trachea. findings were suspicious for aspiration of foreign body with no evidence of malignancy during his last admission for hemoptysis, patient had a bronchosocpy done and no source was found for the bleeding and he was found to have bronchomalacia and pneumonia was was treated with Zpack and Rocephin. on this admission he was also started on IV abx for possible aspiration however they were stopped as he had no fever, leukocytosis and sputum cx showed normal upper resp. tract amy. patient has been recommended to follow up with pulmonology as an outpatient for further workup like a CT scan in 2-3 months. He showed increased difficulty with swallowing, MBS was done by CLAMP REMOVER and Deep penetration with various liquids. Possible aspiration as well. I had a long conversation with patient about his MBS study and its findings. he understands that liquids are penetrating and he is aspirating all liquid textures. i discussed possible having a PEG tube placed but he declined. we discussed the risks of aspiration adn furthermore respiratory failure, cardiac arrest secondary to choking and aspiration. we discussed mechanical ventillation , chest comressions and CPR and he decided to change his code status to DNR CCA DNI. nurse at bedside witnessed the above conversation I discussed above discussion/ recommendations along with CL[employer] REMOVER recommendations with daughter carlos Daniel at [phone] he received influenza vaccination Discharge discussed with: patient, family, nurse, social work - Time Spent with Patient Total time spent providing and/or coordinating discharge services: Greater than 30 minutes (45) - Discharge Medications Prescriptions: Beclomethasone Diprop 80mcg [QVAR 80 mcg] 2 puff IH BID #1 puff Ipratropium/Albuterol Sulfate [Combivent Respimat Inhal [place]] 1 puff IH QID #1 mist.inhal Home Medications: Aspirin 81 mg PO DAILY 01/17/16 [History] Atenolol 100 mg PO DAILY 01/17/16 [History] Docusate [Colace] 100 mg PO BID PRN 01/17/16 [History] Furosemide [Lasix] 20 mg PO DAILY 01/17/16 [History] GuaiFENesin/Dextromethorphan [Kro Child Mucus Rlf Cough Liq] 10 ml PO Q6H PRN [History] Primidone [Mysoline] 100 mg PO BID 01/17/16 [History] Sertraline [Zoloft] 200 mg PO DAILY 01/17/16 [History] amLODIPine [Norvasc] 10 mg PO DAILY 01/17/16 [History] Acetaminophen [Tylenol] 650 mg PO QID PRN 04/12/17 [History] Atorvastatin [Lipitor] 40 mg PO HS 04/12/17 [History] Baclofen [Lioresal] 5 mg PO TID 04/12/17 [History] Cholecalciferol (D-3) [Vitamin D] 2,000 unit PO BID 04/12/17 [History] Divalproex (24 HR) [Depakote ER (24 HR)] 500 mg PO BID 04/12/17 [History] Ipratropium/Albuterol Neb [Duoneb] 3 ml IH Q6H PRN 04/12/17 [History] Lisinopril 5 mg PO DAILY 04/12/17 [History] Selenium Sulfide 1 appl TP Q72H 04/12/17 [History] Sennosides [Senna] 17.2 mg PO HS 04/12/17 [History] clonazePAM [Klonopin] 1 mg PO QID 04/12/17 [History] raNITIdine HCl [Zantac] 150 mg PO BID 04/12/17 [History] Polyethylene Glycol 3350 [MiraLAX] 17 gm PO DAILY PRN powd.pack 04/15/17 [Rx] levETIRAcetam [Keppra] 500 mg PO BID 04/05/18 [History] Melatonin [Melatin] 12 mg PO HS 05/02/18 [History] Beclomethasone Diprop 80mcg [QVAR 80 mcg] 2 puff IH BID #1 puff 05/05/18 [Rx] Ipratropium/Albuterol Sulfate [Combivent Respimat Inhal [place]] 1 puff IH QID #1 mist.inhal 05/05/18 [Rx] Lidocaine Patch [Lidoderm 5% patch] 2 each TP DAILY adh..patch 05/05/18 [Rx] Thiamine (B-1) [Vitamin B-1] 100 mg PO DAILY tablet 05/05/18 [Rx] Allergies/Adverse Reactions: 3 Allergy/AdvReac Type Severity Reaction Status Date / Time moxifloxacin Allergy Swelling Verified 01/28/16 17:07 of Lip/Tongue/Throat Date of admission: 05/02/18 10:02 [facility] care physician: [facility] Consults: 05/01/18 19:41 Consult to Pulmonology [CONS] Routine Consulting Provider: [facility] Elissa Reason for Consult: Respiratory distress, lung cavitary lesion Call Completed: Yes 05/03/18 11:25 Consult to Speech Therapy [CONS] Stat Comment: Evaluate, develop and implement POC Reason for Consult: dysphagia Call Completed: No 05/04/18 13:21 Consult to Case Management [CONS] Routine Comment: Consult to Physical Therapy [CONS] Routine Comment: Evaluate, develop and implement POC Reason for Consult: dispostion Does patient have active BEDREST order?: No Is patient medically & hemodynamically stable?: Yes Patient assessed for mobility or mobilized this visit?: Yes OT [Consult to Occupational Therapy] [CONS] Routine Comment: Evaluate, develop and implement POC Reason for Consult: disposition Does patient have active BEDREST order?: No Is patient medically & hemodynamically stable?: Yes Patient assessed for mobility or mobilized this visit?: Yes - Constitutional Vitals: Temp Pulse Resp BP Pulse Ox 97.9 F 68 16 168/89 95 05/05/18 07:28 05/05/18 07:28 05/05/18 07:28 05/05/18 07:28 05/05/18 07:28 Exam: General: Patient is alert, oriented, no acute distress, obese, speaks in full sentences, raspy voice Head: atraumatic, normocephalic, Eye: normal appearance, PERRL, no scleral icterus, no conjunctival injection ENT: mucous membranes moist, normal external ear exam Neck: normal inspection, trachea midline, full ROM, no carotid bruits Chest: normal inspection, symmetric chest rise Respiratory: decreased breath sounds secondary to body habitus, no wheezing , has occasional crackles at MAL bilaterally. Cardiovascular: Regular rate and rhythm. s1 and s2 No clicks, rubs, gallops, or murmors. Abdomen: Bowel sounds present normoactive x-4 quadrants. Abdomen is soft, nondistended. no Epigastric tenderness. No guarding or rebound. No organomegaly noted, obese musculoskeletal: Spontaneously moving all extremities. no edema, no calf tenderness Skin: warm, dry, intact. Neuro: Alert and oriented x4. Sensation light touch intact. Cranial nerves 2- 12 is intact. Not aphasic, has resting tremor Psych: Patient's affect is normal - Patient Status Disposition: Home Health Service Condition: Fair Functional capacity at discharge: wheelchair bound Overall status at discharge: patient is progressing back to baseline - Discharge Instructions Instructions: Beclomethasone (By breathing), Ipratropium/Albuterol (By breathing), Heart Failure (DC), Chronic Obstructive Pulmonary Disease (DC), Chronic Dysphagia (DC) Follow [facility] With: [facility]Primary Care Provider[facility] - 05/10/18 12:30 pm (this is for the [facility]) - Diet and Activity Activity: increase activity as tolerated Diet: other (NO LIQUIDS, soft textures ) - VTE Documentation of Mechanical Device: Graduated compression elastic hosiery
[2018-05-05] MEDS: Beclomethasone 80mcg MDI IH SCH (10:57)
[2018-05-05 11:19] VITALS: BP 155/79
--- NOTE | 2018-05-05 13:32 | Physician Discharge Referral ---
Home Health/Hosp Referral Info Transfer to: Home Health Provider in Charge Post Discharge: PCP - Diagnosis (1) Dysphagia Priority: Primary Status: Acute (2) Right lower lobe lung mass Priority: Secondary Status: Acute (3) COPD (chronic obstructive pulmonary disease) Priority: Secondary Status: Acute (4) Respiratory distress Priority: Secondary Status: Acute (5) DVT prophylaxis Priority: Secondary Status: Acute - Respiratory Orders Oxygen / L per min (2) Smoking Cessation: Smoking cessation has been advised. For more information, call the [place] Tobacco Quit Line at 6-061-URXJ-NOW. - Diet/Nutrition Diet/Nutrition Orders: Mechanical Soft (no liquids, medications in puree food) - Services Needed Following services are medically necessary services: Home Health Aide - Transfer Medications Prescriptions: Beclomethasone Diprop 80mcg [QVAR 80 mcg] 2 puff IH BID #1 puff Ipratropium/Albuterol Sulfate [Combivent Respimat Inhal [place]] 1 puff IH QID #1 mist.inhal Home Medications: Aspirin 81 mg PO DAILY 01/17/16 [History] Atenolol 100 mg PO DAILY 01/17/16 [History] Docusate [Colace] 100 mg PO BID PRN 01/17/16 [History] Furosemide [Lasix] 20 mg PO DAILY 01/17/16 [History] GuaiFENesin/Dextromethorphan [Kro Child Mucus Rlf Cough Liq] 10 ml PO Q6H PRN [History] Primidone [Mysoline] 100 mg PO BID 01/17/16 [History] Sertraline [Zoloft] 200 mg PO DAILY 01/17/16 [History] amLODIPine [Norvasc] 10 mg PO DAILY 01/17/16 [History] Acetaminophen [Tylenol] 650 mg PO QID PRN 04/12/17 [History] Atorvastatin [Lipitor] 40 mg PO HS 04/12/17 [History] Baclofen [Lioresal] 5 mg PO TID 04/12/17 [History] Cholecalciferol (D-3) [Vitamin D] 2,000 unit PO BID 04/12/17 [History] Divalproex (24 HR) [Depakote ER (24 HR)] 500 mg PO BID 04/12/17 [History] Ipratropium/Albuterol Neb [Duoneb] 3 ml IH Q6H PRN 04/12/17 [History] Lisinopril 5 mg PO DAILY 04/12/17 [History] Selenium Sulfide 1 appl TP Q72H 04/12/17 [History] Sennosides [Senna] 17.2 mg PO HS 04/12/17 [History] clonazePAM [Klonopin] 1 mg PO QID 04/12/17 [History] raNITIdine HCl [Zantac] 150 mg PO BID 04/12/17 [History] Polyethylene Glycol 3350 [MiraLAX] 17 gm PO DAILY PRN powd.pack 04/15/17 [Rx] levETIRAcetam [Keppra] 500 mg PO BID 04/05/18 [History] Melatonin [Melatin] 12 mg PO HS 05/02/18 [History] Beclomethasone Diprop 80mcg [QVAR 80 mcg] 2 puff IH BID #1 puff 05/05/18 [Rx] Ipratropium/Albuterol Sulfate [Combivent Respimat Inhal [place]] 1 puff IH QID #1 mist.inhal 05/05/18 [Rx] Lidocaine Patch [Lidoderm 5% patch] 2 each TP DAILY adh..patch 05/05/18 [Rx] Thiamine (B-1) [Vitamin B-1] 100 mg PO DAILY tablet 05/05/18 [Rx] Allergies/Adverse Reactions: 3 Allergy/AdvReac Type Severity Reaction Status Date / Time moxifloxacin Allergy Swelling Verified 01/28/16 17:07 of Lip/Tongue/Throat Certification: Further, I certify that my clinical findings support that this patient is homebound (i.e. absences from home require considerable and taxing effort and are for medical reasons or [facility] or infrequently or short duration when for other reasons) because: Homebound Reason: Patient requires assistance of a person or device to safely leave home Attestation: My signature below is to certify that this patient is under my care and that I, or nurse practitioner, or a physician's library media assistant working with me, has a face-to -face encounter with this patient.
== END 2018-05-05 14:50 | disposition home health service (06) | DRG 189 ==
LOC: 2NENU → SUATTDRO 05-02 10:02
PROVIDERS: ADMIT Internal Medicine; ATTEND Internal Medicine